=== PATIENT | female | born 1950 | race Caucasian/White ===

== ENCOUNTER 2017-08-24 11:05 | Observation (INO) | payer MEDICARE, OTHER, SELFPAY ==
[2017-08-24] VITALS (10 sets, daily range): BP systolic 120–173; BP diastolic 50–98; PULSE 61–86; RESP 14–18; TEMP 36.6–36.7; O2SAT 95–98; BMI 38.0; BMI 39.2
--- NOTE | 2017-08-24 11:26 | EKG12_ITS ---
Test Reason : CP Blood Pressure : / mmHG Vent. Rate : 062 BPM Atrial Rate : 062 BPM P-R Int : 164 ms QRS Dur : 088 ms QT Int : 436 ms P-R-T Axes : 033 001 007 degrees QTc Int : 442 ms Normal sinus rhythm Inferior [place], age undetermined, cannot be excluded Confirmed by STEFANIA PUTNAM, BRIELLE ([id number]), supervising editor news reel CARMINE GROSS ([id number]) on 08/26/2017 9:05:50 AM Referred By: VIRGEN Confirmed By:BRIELLE AGUIAR MD
--- NOTE | 2017-08-24 11:30 | RAD_ITS ---
STUDY: X-RAY CHEST REASON FOR EXAM: Female, 66 years old. Chest pressure and shortness of breath TECHNIQUE: PA and lateral views of the chest. COMPARISON: None. FINDINGS: EKG leads overlie the chest There are interstitial fibrotic changes of the lungs. There is no demonstrated pleural abnormality. Normal size heart. Normal mediastinum and robert. Normal visualized pulmonary arteries. There is atherosclerotic calcification of the aortic arch with tortuosity. There are diffuse degenerative changes of the visualized thoracic spine. Normal visualized ribs, clavicles, and shoulders. There is no demonstrated abnormality of the visualized soft tissue structures of the upper abdomen. RAD/Chest PA and Lateral IMPRESSION: Degenerative changes, as described above. No demonstrated acute cardiopulmonary process. Electronically Signed: Hill Hidalgo MD at 11:40 EDT , Service support ,
[2017-08-24] MEDS: Aspirin 81 MG TAB.CHEW 324 MG PO (11:35)
[2017-08-24 11:40] LABS: Absolute Lymphocyte Count 1.14 X10^3/ul (0.83-4.51); Absolute Neutrophil Count 3.8 X10^3/uL (2.0-7.7); Basophil# 0.02 X10^3/uL; Basophil% 0.4 % (0-1); Eosinophil# 0.09 X10^3/uL; Eosinophils% 1.7 % (0-5); Hematocrit 39.8 % (37-47); Hemoglobin 12.7 g/dl (12.0-15.0); Lymphocyte # 1.14 X10^3/ul (4.0); Lymphocyte % 21.5 % (19-41); Mean Corp Hgb Conc 31.9 g/gl (32-36); Mean Corpuscular Hgb 29.3 pg (27.0-32.0); Mean Corpuscular Volume 91.7 fL (81-99); Mean Platelet Vol. 10.4 fl (6.2-12.0); Monocyte# 0.22 X10^3/uL; Monocyte% 4.1 % (0-10); Neutrophil # 3.83 X10^3/uL (2.7-7.7); Neutrophil % 72.1 % (47-70); POSITIVE COUNT NO; POSITIVE DIFFERENTIAL NO; POSITIVE MORPHOLOGY NO; Platelet Count 237 K/mm3 (150-450); RBC Distribution Width CV 15.7 % (11.6-14.6); Red Blood Count 4.34 M/mm3 (4.2-5.4); White Blood Count 5.3 K/mm3 (4.4-11.0)
[2017-08-24 11:51] LABS: Anion Gap 5 (5-15); BUN 14 mg/dL (7-18); BUN/Creat Ratio 17.7 RATIO (10-20); Calcium,Total 8.9 mg/dL (8.5-10.1); Chloride 104 mmol/L (98-107); Creatinine, Serum 0.79 mg/dL (0.55-1.02); EST Glomerular Filtration Rate 77 mL/min (>60); Est Glom Filt Rate - Afr Amer 93 mL/min (>60); Estimated Creatinine Clearance 71.62 ml/min; Glucose 103 mg/dL (74-106); Potassium 3.9 mmol/L (3.5-5.1); Sodium Level 138 mmol/L (136-145)
--- NOTE | 2017-08-24 12:04 | ED.VISSUMM ---
- ER Visit Summary Date of Service: 08/24/17 Chief Complaint: Shortness of breath History of Present Illness: The patient is a 66 F who presents with shortness of breath. This is been present for the past 4 days. It is worsened with exertion. She reports chronic cough was unchanged. She has a history of COPD but no change in cough or sputum. The planes of some mild head congestion but really no other recent illness. She also complains of some chest pressure and heaviness. This can last anywhere between 10 and 60 minutes. There is a family history of coronary artery disease and sibling had an [place] in his 40s. Physical Examination: Blood pressure 172/98 vitals otherwise normal Moist mucous membranes Heart regular rate and rhythm Lungs are clear no rales rhonchi or wheezing no increased work of breathing Abdomen soft and nontender 2+ radial pulses Extremities nontender Alert Test Results: EKG shows normal sinus rhythm at a rate of 62. CBC BMP troponin all normal. Chest x-ray normal. Emergency Department Course and Treatment: She was given aspirin. Her physical exam and history are suggestive of possible cardiac ischemia or angina. She does not have change in cough or sputum or increased wheezing in her lungs were completely clear. She does report dyspnea on exertion. Her GAMALIEL risk score is 2 and her heart score is 5. Do feel she will need repeat cardiac enzymes and stress testing. Patient discussed with the hospitalist and admitted. Treatment Plan: [] Disposition: Admit Impression: Chest pain Dyspnea on exertion This note was generated with [employer] dictation software. It may contain incorrect words, spelling, and punctuation that were not noted in review of the chart prior to signing ED Disposition - Plan for ED Patient: Chief Complaint: Shortness of Breath Referrals: Madeline Rogers MD [Primary Care Provider] -
--- NOTE | 2017-08-24 12:08 | ED.DCSUM_ITS ---
- ER Visit Summary Date of Service: 08/24/17 Chief Complaint: Shortness of breath History of Present Illness: The patient is a 66 F who presents with shortness of breath. This is been present for the past 4 days. It is worsened with exertion. She reports chronic cough was unchanged. She has a history of COPD but no change in cough or sputum. The planes of some mild head congestion but really no other recent illness. She also complains of some chest pressure and heaviness. This can last anywhere between 10 and 60 minutes. There is a family history of coronary artery disease and sibling had an [place] in his 40s. Physical Examination: Blood pressure 172/98 vitals otherwise normal Moist mucous membranes Heart regular rate and rhythm Lungs are clear no rales rhonchi or wheezing no increased work of breathing Abdomen soft and nontender 2+ radial pulses Extremities nontender Alert Test Results: EKG shows normal sinus rhythm at a rate of 62. CBC BMP troponin all normal. Chest x-ray normal. Emergency Department Course and Treatment: She was given aspirin. Her physical exam and history are suggestive of possible cardiac ischemia or angina. She does not have change in cough or sputum or increased wheezing in her lungs were completely clear. She does report dyspnea on exertion. Her GAMALIEL risk score is 2 and her heart score is 5. Do feel she will need repeat cardiac enzymes and stress testing. Patient discussed with the hospitalist and admitted. Treatment Plan: [] Disposition: Admit Impression: Chest pain Dyspnea on exertion This note was generated with [employer] dictation software. It may contain incorrect words, spelling, and punctuation that were not noted in review of the chart prior to signing ED Disposition - Plan for ED Patient: Chief Complaint: Shortness of Breath Referrals: Madeline Rogers MD [Primary Care Provider] -
--- NOTE | 2017-08-24 15:22 | PCM.HP.STD ---
Problem List (1) Chest pain Status: Acute (2) COPD (chronic obstructive pulmonary disease) Status: Chronic (3) HTN (hypertension) Status: Chronic (4) Hyperlipidemia Status: Chronic History of Present Illness Date of Admission: 08/24/17 Chief Complaint: chest pain. WHITE. The patient is a 66 year old F presents with chest pain and WHITE. Has been ongoing for sometime. Improved when rests. Never had this before. Presented to ED for evaluation. Work up in ED was negative. no other constitutional symptoms with this.[] Past Medical History Past Medical History (Chronic Problems): Chronic Problems COPD (chronic obstructive pulmonary disease) (Chronic) HTN (hypertension) (Chronic) Hyperlipidemia (Chronic) Allergies No Known Allergies Allergy (Verified 02/09/17 22:14) Home Medications: Ambulatory Orders Medication Instructions Recorded Lisinopril [Zestril] 20 mg PO DAILY 08/24/17 Omeprazole [Prilosec] 20 mg PO DAILY 08/24/17 Pravastatin Sodium [Pravachol] 10 mg PO DAILY 08/24/17 busPIRone [Buspar] 5 mg PO BID 08/24/17 Psychiatric History: No pertinent psych hx Lives: With Family Smoking Status: Never smoker Tobacco Use: Non-smoker Alcohol: None Drugs: None - *Family History Sibling History Items: Heart Disease Review of Systems Constitutional: Denies: Chills, Fever, Weight Change Eyes: Denies: Blurred vision, Double vision HEENT: Denies: Head Aches, Sinus Congestion, Sinus Drainage Cardiovascular: Reports: Chest Pain. Denies: Edema Respiratory: Reports: Shortness of breath upon exertion. Denies: Cough Gastrointestinal: Denies: Abdominal Pain, Nausea, Vomiting Genitourinary: Denies: Dysuria Musculoskeletal: Denies: Joint Pain, Joint Tenderness Skin: Denies: Rash, Wounds Neurological: Denies: Numbness, Tingling, Focal weakness Psychiatric: Denies: Anxiety, Depression Endocrine: Reports: Change in Body Habitus Hematologic/ Lymphatic: Denies: Easy Bruising, Easy Bleeding, Hx of blood clot VTE Information - Inpt Only VTE Present on Admission: No VTE Pharm Prophylaxis ordered?: Yes Patient Problems: Active and Suspected Problems Chest pain (Acute) - Physical Exam General: Alert, Cooperative, No apparent distress HEENT: Atraumatic, Normocephalic Neck: No Nodes, Thyroid Normal Size and Texture Lungs: Clear to auscultation, Normal air movement, No rhonchi, No wheeze Cardiovascular: Regular rate, Regular Rhythm, Normal S1, Normal S2, No murmurs Abdomen: Bowel Sounds Present, Soft, Non Tender Extremities: No edema, No Calf Tenderness Skin: No rashes, No breakdown Psych/Mental Status: Normal Affect, Appropriate Vital Signs Temp Pulse Resp BP Pulse Ox 36.7 C 61 15 156/75 H 98 08/24/17 11:05 08/24/17 12:43 08/24/17 11:36 08/24/17 11:36 08/24/17 11:36 Weight: 116.845 kg Body Mass Index (BMI) 39.2 Laboratory Tests Past 24 Hrs 08/24/17 14:20 Troponin I < 0.02 Assessment/Plan Active and Suspected Problems Chest pain (Acute) 1. Chest pain concern for cardiac etiology Heart score 4. GAMALIEL 2 ASA chemical nuclear stress in AM 2. DVT proph LMWH Code Visit OBSV E&M: 04437 Initial observation care L2
--- NOTE | 2017-08-24 15:30 | HP.PCM_ITS ---
Problem List (1) Chest pain Status: Acute (2) COPD (chronic obstructive pulmonary disease) Status: Chronic (3) HTN (hypertension) Status: Chronic (4) Hyperlipidemia Status: Chronic History of Present Illness Date of Admission: 08/24/17 Chief Complaint: chest pain. WHITE. The patient is a 66 year old F presents with chest pain and WHITE. Has been ongoing for sometime. Improved when rests. Never had this before. Presented to ED for evaluation. Work up in ED was negative. no other constitutional symptoms with this.[] Past Medical History Past Medical History (Chronic Problems): Chronic Problems COPD (chronic obstructive pulmonary disease) (Chronic) HTN (hypertension) (Chronic) Hyperlipidemia (Chronic) Allergies No Known Allergies Allergy (Verified 02/09/17 22:14) Home Medications: Ambulatory Orders Medication Instructions Recorded Lisinopril [Zestril] 20 mg PO DAILY 08/24/17 Omeprazole [Prilosec] 20 mg PO DAILY 08/24/17 Pravastatin Sodium [Pravachol] 10 mg PO DAILY 08/24/17 busPIRone [Buspar] 5 mg PO BID 08/24/17 Psychiatric History: No pertinent psych hx Lives: With Family Smoking Status: Never smoker Tobacco Use: Non-smoker Alcohol: None Drugs: None - *Family History Sibling History Items: Heart Disease Review of Systems Constitutional: Denies: Chills, Fever, Weight Change Eyes: Denies: Blurred vision, Double vision HEENT: Denies: Head Aches, Sinus Congestion, Sinus Drainage Cardiovascular: Reports: Chest Pain. Denies: Edema Respiratory: Reports: Shortness of breath upon exertion. Denies: Cough Gastrointestinal: Denies: Abdominal Pain, Nausea, Vomiting Genitourinary: Denies: Dysuria Musculoskeletal: Denies: Joint Pain, Joint Tenderness Skin: Denies: Rash, Wounds Neurological: Denies: Numbness, Tingling, Focal weakness Psychiatric: Denies: Anxiety, Depression Endocrine: Reports: Change in Body Habitus Hematologic/ Lymphatic: Denies: Easy Bruising, Easy Bleeding, Hx of blood clot VTE Information - Inpt Only VTE Present on Admission: No VTE Pharm Prophylaxis ordered?: Yes Patient Problems: Active and Suspected Problems Chest pain (Acute) - Physical Exam General: Alert, Cooperative, No apparent distress HEENT: Atraumatic, Normocephalic Neck: No Nodes, Thyroid Normal Size and Texture Lungs: Clear to auscultation, Normal air movement, No rhonchi, No wheeze Cardiovascular: Regular rate, Regular Rhythm, Normal S1, Normal S2, No murmurs Abdomen: Bowel Sounds Present, Soft, Non Tender Extremities: No edema, No Calf Tenderness Skin: No rashes, No breakdown Psych/Mental Status: Normal Affect, Appropriate Vital Signs Temp Pulse Resp BP Pulse Ox 36.7 C 61 15 156/75 H 98 08/24/17 11:05 08/24/17 12:43 08/24/17 11:36 08/24/17 11:36 08/24/17 11:36 Weight: 116.845 kg Body Mass Index (BMI) 39.2 Laboratory Tests Past 24 Hrs 08/24/17 14:20 Troponin I < 0.02 Assessment/Plan Active and Suspected Problems Chest pain (Acute) 1. Chest pain * concern for cardiac etiology * Heart score 4. GAMALIEL 2 * ASA * chemical nuclear stress in AM 2. DVT proph * LMWH Code Visit OBSV E&M: 64254 Initial observation care L2
[2017-08-24] MEDS: busPIRone 5 MG Tablet PO (21:13)
[2017-08-24] MEDS: Pravastatin 20 MG Tablet 10 MG PO (21:13)
[2017-08-24] MEDS: 0.9% NaCl Peripheral Flush Adult/Peds IV (21:14)
[2017-08-25 02:14] VITALS: BP 141/62; PULSE 58; RESP 17; TEMP 36.4; O2SAT 98
[2017-08-25 03:11] VITALS: PULSE 60
[2017-08-25 05:15] LABS: Absolute Lymphocyte Count 2.14 X10^3/ul (0.83-4.51); Absolute Neutrophil Count 3.3 X10^3/uL (2.0-7.7); Basophil# 0.02 X10^3/uL; Basophil% 0.3 % (0-1); Eosinophil# 0.21 X10^3/uL; Eosinophils% 3.5 % (0-5); Hemoglobin 12.4 g/dl (12.0-15.0); Lymphocyte # 2.14 X10^3/ul (4.0); Lymphocyte % 35.4 % (19-41); Mean Corp Hgb Conc 31.8 g/gl (32-36); Mean Corpuscular Hgb 29.1 pg (27.0-32.0); Mean Corpuscular Volume 91.5 fL (81-99); Monocyte# 0.41 X10^3/uL; Monocyte% 6.8 % (0-10); Neutrophil # 3.26 X10^3/uL (2.7-7.7); Neutrophil % 53.8 % (47-70); Platelet Count 235 K/mm3 (150-450); RBC Distribution Width SD 52.4 fl (35.1-43.9); Red Blood Count 4.26 M/mm3 (4.2-5.4); White Blood Count 6.1 K/mm3 (4.4-11.0)
[2017-08-25] MEDS: Aspirin E.C. 81 MG Tablet PO (05:16)
[2017-08-25] MEDS: Lisinopril 20 MG Tablet PO (05:16)
[2017-08-25] MEDS: 0.9% NaCl Peripheral Flush Adult/Peds IV (05:16)
[2017-08-25 05:17] VITALS: BP 159/74; PULSE 64; RESP 16; TEMP 36.8; O2SAT 98
[2017-08-25 05:20] LABS: POSITIVE COUNT NO; POSITIVE DIFFERENTIAL NO; POSITIVE MORPHOLOGY NO
[2017-08-25 05:23] LABS: Anion Gap 5 (5-15); BUN 15 mg/dL (7-18); BUN/Creat Ratio 19.3 RATIO (10-20); Calcium,Total 8.6 mg/dL (8.5-10.1); Chloride 107 mmol/L (98-107); Creatinine, Serum 0.78 mg/dL (0.55-1.02); EST Glomerular Filtration Rate 79 mL/min (>60); Est Glom Filt Rate - Afr Amer 96 mL/min (>60); Estimated Creatinine Clearance 72.54 ml/min; Glucose 89 mg/dL (74-106); Potassium 4.3 mmol/L (3.5-5.1); Prothrombin Time (Protime)PT. 13.4 SECONDS (11.7-14.9); Sodium Level 142 mmol/L (136-145)
--- NOTE | 2017-08-25 05:55 | EKG12_ITS ---
Test Reason : AM EKG Blood Pressure : / mmHG Vent. Rate : 065 BPM Atrial Rate : 065 BPM P-R Int : 164 ms QRS Dur : 078 ms QT Int : 442 ms P-R-T Axes : 049 -03 -01 degrees QTc Int : 459 ms Normal sinus rhythm Normal ECG Confirmed by DUYEN PUTNAM, ERIKA ([id number]), editorial assistant CARMINE GROSS ([id number]) on 08/28/2017 3:05:54 PM Referred By: BAN Confirmed By:ERIKA GELLER MD
[2017-08-25 07:35] VITALS: PULSE 68
--- NOTE | 2017-08-25 09:07 | PN_ITS ---
Patient Problems: Active and Suspected Problems Chest pain (Acute) Subjective: No further chest pain, nor shortness of breath. Vitals/I&O's: Vital Signs Temp Pulse Resp BP Pulse Ox 36.8 C 68 16 159/74 H 98 08/25/17 05:17 08/25/17 07:35 08/25/17 05:17 08/25/17 05:17 08/25/17 05:17 Oxygen Delivery Method Room Air Weight: 116.845 kg Body Mass Index (BMI) 39.2 Intake and Output for Last 24 Hours 08/23/17 08/24/17 08/25/17 23:59 23:59 23:59 Intake Total 475 / 475 60 / 60 Balance 475 / 475 60 / 60 General: Alert, No apparent distress HEENT: Atraumatic, Normocephalic Neck: No Nodes, Thyroid Normal Size and Texture Lungs: Clear to auscultation, Normal air movement, No rhonchi, No wheeze Cardiovascular: Regular rate, Regular Rhythm, Normal S1, Normal S2, No murmurs Abdomen: Bowel Sounds Present, Soft, Non Tender, Non-Distended, No Hepato- splenomegaly Extremities: No edema, No Calf Tenderness Psych/Mental Status: Normal Affect, Appropriate Laboratory Results 08/24/17 14:20: Troponin I < 0.02 08/24/17 17:30: Troponin I < 0.02 08/25/17 04:25: Triglycerides Pending, Cholesterol Pending, LDL Cholesterol Pending, VLDL Cholesterol Pending, HDL Cholesterol Pending 08/25/17 04:25: WBC 6.1, RBC 4.26, Hgb 12.4, Hct 39.0, MCV 91.5, MCH 29.1, MCHC 31.8 L, RDW 16.0 H, RDW Differential 52.4 H, Plt Count 235, MPV 11.0, Immature Gran % (Auto) 0.200, Neut % (Auto) 53.8, Lymph % (Auto) 35.4, [place] % (Auto) 6.8 , Eos % (Auto) 3.5, Baso % (Auto) 0.3, Absolute Neuts (auto) 3.3, Absolute Lymphs (auto) 2.14, Total Counted Not Reportable 08/25/17 04:25: PT 13.4, INR 1.0, APTT 25.0 08/25/17 04:25: Sodium 142, Potassium 4.3, Chloride 107, Carbon Dioxide 30.0, Anion Gap 5, BUN 15, Creatinine 0.78, Estim Creat Clear Calc 72.54, Est GFR ( MDRD) Af Amer 96, Est GFR (MDRD) Non-Af 79, BUN/Creatinine Ratio 19.3, Glucose 89, Calcium 8.6 Current Medications Aspirin (Ecotrin) 81 mg PO DAILY@0800 [facility] Last Admin: 08/25/17 05:16 Dose: 81 mg Buspirone HCl (Buspar) 5 mg PO BID [facility] Last Admin: 08/24/17 21:13 Dose: 5 mg Enoxaparin Sodium (Lovenox) 40 mg SC DAILY@1000 [facility] Sodium Chloride () 250 mls @ 15 mls/hr IV .[id number] PRN PRN Reason: SALINE FLUSH Lisinopril (Zestril) 20 mg PO DAILY [facility] Last Admin: 08/25/17 05:16 Dose: 20 mg Magnesium Hydroxide (Milk Of Magnesia) 30 ml PO DAILY PRN PRN Reason: Constipation Nitroglycerin (Nitrostat) 0.4 mg SUBLINGUAL Q5M PRN PRN Reason: CHEST PAIN Pantoprazole Sodium (Protonix) 20 mg PO DAILY [facility] Pravastatin Sodium (Pravachol) 10 mg PO 2200 [facility] Last Admin: 08/24/17 21:13 Dose: 10 mg Sodium Chloride () 5 - 30 ml IV UD PRN PRN Reason: SALINE FLUSH Last Admin: 08/25/17 05:16 Dose: 10 ml Medical Necessity - Tobacco Use Smoking Status: Never smoker Tobacco Use: Non-smoker Assessment/Plan Active and Suspected Problems Chest pain (Acute) 1. Chest pain * concern for cardiac etiology * Heart score 4. GAMALIEL 2 * ASA * chemical nuclear stress today 2. DVT proph * LMWH Code Visit OBSV E&M: 36248 Subsequent observation care L2
[2017-08-25 11:30] VITALS: BP 132/60; PULSE 83; RESP 16; TEMP 36.1; O2SAT 96
[2017-08-25] MEDS: Pantoprazole Sodium 20 MG Tablet PO (11:36)
[2017-08-25] MEDS: busPIRone 5 MG Tablet PO (11:36)
--- NOTE | 2017-08-25 11:38 | NURSING ---
[facility]SA late d/t pt being at stress test
[2017-08-25 11:43] VITALS: PULSE 79
--- NOTE | 2017-08-25 12:07 | STRESSREP_ITS ---
Stress Test Report Date: 08/25/2017 Procedure: Pharmacologic stress nuclear imaging study Indications: Chest pain Consent: Per the patient Procedure: The patient underwent pharmacologic (Regadenoson) evaluation with a peak heart rate of 117 beats per minute (75 predicted maximal heart rate) and a peak blood pressure of 180/90 mmHg. The baseline ECG demonstrated normal sinus rhythm. The peak pharmacologic ECG demonstrated no obvious ECG changes. There were no cardiac dysrhythmias pretest, during pharmacologic infusion, or recovery. There was no complaint of chest discomfort during pharmacologic infusion or recovery. The examination was discontinued secondary to completion of protocol. Impression: 1. Pharmacologic (Regadenoson) evaluation 2. Peak pharmacologic ECG with no obvious ECG changes. 3. No cardiac dysrhythmias pretest, during pharmacologic infusion, or recovery 4. Nuclear images pending Myocardial perfusion imaging study: Technique: The patient was injected with 14.2 millicuries of technetium 99m Cardiolite and subsequently rest SPECT Cardiolite nuclear imaging was obtained in the horizontal long, vertical long, and short axis views. The patient underwent pharmacologic (Regadenoson) evaluation with a peak heart rate of 117 beats per minute (75 % percent predicted maximal heart rate) and a peak blood pressure of 180/90 mmHg. The patient was injected with 44.8 millicuries of technetium 99m Cardiolite and subsequently stress SPECT Cardiolite nuclear imaging was obtained in the horizontal long, vertical long, and short axis views. A gated Cardiolite study at peak stress was obtained. Interpretation: Rest and stress SPECT Cardiolite nuclear imaging status post realignment, normalization, and attenuation correction demonstrate relative uniform tracer uptake and myocardial perfusion appearing within normal limits. There is end systolic thickening and brightening. The gated Cardiolite study demonstrates myocardial thickening and inward wall motion. The reported LVEF is 89%. Impression: 1. Rest and stress SPECT Cardiolite nuclear imaging demonstrate relative uniform tracer uptake and myocardial perfusion appearing within normal limits. 2. The gated Cardiolite study reports an LVEF of 89 %. This note was generated with [employer] software. It may contain incorrect words, spelling, and punctuation that were not noted in checking the note before signing.
[2017-08-25 12:09] LABS: Cholesterol 208 mg/dL (200); High Density Lipoprotein 70 mg/dL; Triglycerides 76 mg/dL; Very Low Density Lipoprotein 15 mg/dL (5-40)
--- NOTE | 2017-08-25 12:41 | PCM.DC ---
- Discharge Diagnoses Current Active Problems: Current Active and Chronic Problems Chest pain (Acute) COPD (chronic obstructive pulmonary disease) (Chronic) HTN (hypertension) (Chronic) Hyperlipidemia (Chronic) You will use the following diet at home:: No restrictions Your food should be the consistency of: Regular Your liquids should be the consistency of: Regular/Thin Discharge Activity: Return to Normal Activity Call your doctor if you observe: Fever of 101 or Higher, Shortness of breath, Chest pain Instructions: ED Chest Pain NonCardiac Allergies/Adverse Reactions: Allergies No Known Allergies Allergy (Verified 02/09/17 22:14) Medications to take at Discharge Lisinopril [Zestril] 20 mg PO DAILY 08/24/17 Omeprazole [Prilosec] 20 mg PO DAILY 08/24/17 Pravastatin Sodium [Pravachol] 10 mg PO DAILY 08/24/17 busPIRone [Buspar] 5 mg PO BID 08/24/17 Primary Care Physician: Madeline Rogers MD [Primary Care Provider] - Within 1 Week Proposed Discharge Date: 08/25/17
--- NOTE | 2017-08-25 12:43 | PCM.DC.SUM ---
Discharge Date and Diagnosis - Problem List Patient Problems: Active and Suspected Problems Chest pain (Acute) Date of Admission: 08/24/17 Date of Discharge: 08/25/17 - Primary Discharge Diagnosis Active and Suspected Problems Chest pain (Acute) - Secondary Discharge Diagnosis Chronic Problems COPD (chronic obstructive pulmonary disease) (Chronic) HTN (hypertension) (Chronic) Hyperlipidemia (Chronic) Hospital Course and Treatment Imaging Results: 08/25/17 05:55 Nuclear Stress Test - Chemical [NM] AM (NON MEDS) Clinical Impression(s) from Imaging Studies Chest X-Ray 08/24/17 11:30 IMPRESSION: Degenerative changes, as described above. No demonstrated acute cardiopulmonary process. Electronically Signed: Hill Hidalgo MD at 11:40 EDT , Service support , Operations: None, - - left perc nephrostolithotomy Procedures: Stress test Summary of Care Provided: The patient is a 66 year old F presents with chest pain. Patient had a heart score of 4 and a GAMALIEL score of 2. Patient underwent a nuclear stress test today that was unremarkable. Patient's cardiac workup has been unremarkable for her chest pain. Patient will be discharged home today. [] Discharge Diet: No Restrictions Discharge Activity: Return to Normal Activity Call your doctor if you observe: Fever of 101 or Higher, Shortness of breath, Chest pain Home Medications: Medications to take at Discharge Lisinopril [Zestril] 20 mg PO DAILY 08/24/17 Omeprazole [Prilosec] 20 mg PO DAILY 08/24/17 Pravastatin Sodium [Pravachol] 10 mg PO DAILY 08/24/17 busPIRone [Buspar] 5 mg PO BID 08/24/17 Primary Care Physician: Madeline Rogers MD [Primary Care Provider] - Within 1 Week Patient Instructions: ED Chest Pain NonCardiac Disposition: Home Minutes spent on discharge:: 26 Patient Condition:: Good Medical Necessity - Tobacco Use Smoking Status: Never smoker Tobacco Use: Non-smoker Meaningful Use Info Meaningful Use Diagnoses (Choose all that apply): None applicable Code Visit OBSV E&M: 45988 Observation care discharge
== END 2017-08-25 13:40 | disposition home or self-care (01) ==
LOC: ED 11:40 → ICU 12:37
PROVIDERS: Emergency Provider Emergency Medicine; Family Provider Internal Medicine; PCP Internal Medicine
DX: R07.89 Other chest pain (principal); J44.9 Chronic obstructive pulmonary disease, unspecified; I10 Essential (primary) hypertension; E78.5 Hyperlipidemia, unspecified; Z82.49 Family history of ischemic heart disease and other diseases of the circulatory system; R06.09 Other forms of dyspnea; Z79.899 Other long term (current) drug therapy
CPT/HCPCS: 71046; 78452; 80048; 80061; 84484; 85025; 85610; 85730; 93005; 93017; 99218; 99285; A9500; A4216; G0378; J2785

== ENCOUNTER → 2018-05-18 14:15 | Outpatient (CLI) | payer MEDICARE, OTHER, SELFPAY ==
--- NOTE | 2018-05-18 14:24 | RAD_ITS ---
STUDY: X-RAY - ABDOMEN/PELVIS REASON FOR EXAM: Female, 67 years old. Left-sided flank pain with history of kidney stones. TECHNIQUE: KUB COMPARISON: None. FINDINGS: Bowel pattern normal. Grossly normal size and position of the solid organs of the abdomen. There is no visible calculus overlying the renal silhouettes or along the course of the ureters or within the urinary bladder. Small pelvic phlebolith are present. Mild lumbar scoliosis with prominent degenerative disc disease and facet arthropathy/hypertrophy at L4-L5. Mild hip joint degenerative changes bilaterally. RAD/Abdomen Single View IMPRESSION: No evidence of urinary calculus. Lumbar scoliosis and low lumbar spondylosis. Electronically Signed: Abel Bills MD at 18:10 EST Tel , Service support ,
--- OUTSIDE RECORDS SUMMARY | 2018-07-20 19:49 | XMS RPT_ITS ---
:1950 Author Organization OH[facility] Care Team Providers Name Role Phone ROCIO BARR (AVIONICS SYSTEMS TECHNICIAN) Attending Unavailable MAGNUS FLORES Attending Unavailable ROCIO BARR (AVIONICS SYSTEMS TECHNICIAN) Referring Unavailable CLAUDIA WOLFF (RADIOLOGY ASST) Attending Unavailable MAGNUS FLORES Attending Unavailable ROCIO BARR (AVIONICS SYSTEMS TECHNICIAN) Referring Unavailable CLAUDIA WOLFF (RADIOLOGY ASST) Referring Unavailable GANTA, MARYAM Attending Unavailable GANTA, MARYAM Referring Unavailable GANTA, MARYAM Attending Unavailable GANTA, MARYAM Referring Unavailable GANTA, MARYAM Referring Unavailable ToddJohn Attending Unavailable Todd, John Edwards Referring Unavailable Ganta, Maryam Primary Care Unavailable Ganta, Maryam Primary Care Unavailable Jopperi, Jose Admitting Unavailable Jopperi, Jose Attending Unavailable Jopperi, Jose Admitting Unavailable Jopperi, Jose Attending Unavailable Ganta, Maryam Primary Care Unavailable Jopperi, Jose Consulting Unavailable Jopperi, Jose Admitting Unavailable Jopperi, Jose Attending Unavailable Ganta, Maryam Primary Care Unavailable Jopperi, Jsoe Consulting Unavailable [place], Tejas Attending Unavailable Jose Huntley Referring Unavailable Junior, Brooks Attending Unavailable Jose Huntley Referring Unavailable PROBLEMS PROBLEMS DATE TYPE CONDITION / CODE ATTENDING STATUS SOURCE 01/27/2018 Active Age-related NA Active [facility] osteoporosis [place] without current Repository pathological fracture / M81.0(ICD-10) 11/02/2017 Active Encounter for NA Active [facility] screening [place] mammogram for Repository malignant neoplasm of breast / Z12.31(ICD-10) 09/09/2017 Active Shortness of NA Active [facility] breath / [place] R06.02(ICD-10) Repository 09/09/2017 Active Unspecified NA Active [facility] chronic bronchitis [place] / J42(ICD-10) Repository 10/10/2017 Unknown R06.02 - Shortness Junior, [place] Active [place] [facility] breath / Community R06.02(ICD-10) Hospital Repository 10/10/2017 Unknown R07.89 - Other Junior, Brooks Active [place] chest pain / Community R07.89(ICD-10) Hospital Repository 10/10/2017 Unknown I10 - Essential Junior, Brooks Active [place] (primary) Community hypertension / Hospital I10(ICD-10) Repository 09/24/2017 Unknown R07.9 - Chest Moodispatomasz Tejas Active [place] pain, unspecified Community / R07.9(ICD-10) Hospital Repository 06/25/2017 Active Unknown / NA Active [facility] UNK(Unknown) [place] Repository PROCEDURES PROCEDURES No Procedure Records FoundRESULTS RESULTS ABDOMEN SINGLE VIEW Observed: 05/18/2018 Status: F Source: [place] 2:22 PM [facility] REPOSITORY [facility] Imaging Services [address] [place] [address] Abdomen Single View MR#: [id number] Acct: [id number] Name: NICHOLE HERRERA Ronak Rep #: [id number] : 1950 F 67 From: Abel Bills MD PCP: Maryam Arevalo MD Status: REG CLI Study: Abdomen Single View Date of Exam: 05/18/18 Exam# [id number] Ordering Dr: John Brooks MD STUDY: X-RAY - ABDOMEN/PELVIS REASON FOR EXAM: Female, 67 years old. Left-sided flank pain with history of kidney stones. TECHNIQUE: KUB COMPARISON: None. FINDINGS: Bowel pattern normal. Grossly normal size and position of the solid organs of the abdomen. There is no visible calculus overlying the renal silhouettes or along the course of the ureters or within the urinary bladder. Small pelvic phlebolith are present. Mild lumbar scoliosis with prominent degenerative disc disease and facet arthropathy/hypertrophy at L4-L5. Mild hip joint degenerative changes bilaterally. RAD/Abdomen Single View IMPRESSION: No evidence of urinary calculus. Lumbar scoliosis and low lumbar spondylosis. Electronically Signed: Abel Bills MD at 18:10 EST Tel , Service support , CC: Maryam Arevalo MD; John Brooks MD Notching Press Operator: Signed PROGRESS Observed: 03/23/2018 Status: COMPLETED Source: [place] 3:03 PM [facility] [place] REPOSITORY O ID: [id number] Author: Lina Kamara (Hakeem) Dax Service: (none) Author Type: Nurse Practitioner Type: Progress Notes Filed: 03/23/2018 3:07 PM Note Text: Subjective HPI Patient presents with: Left Hip Pain: x couple days, no injury States hx of similar pain that usually resolves on it own States 10/10 on pain scale, sharp, intermittently Denies any otc treatment for symptoms. Denies chest pain, sob, abd pain, dysuria, n/v, numbness/tingling, incontinence of bowel or bladder Review of Systems Constitutional: Negative for chills and fever. Cardiovascular: Negative for chest pain. Gastrointestinal: Negative for abdominal pain, nausea and vomiting. Genitourinary: Negative for dysuria and flank pain. Denies incontinence of bowel or bladder function Musculoskeletal: Positive for back pain. All other systems reviewed and are negative. 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 Has a son who had bladder cancer, was treated and is doing fine right now. 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/2009 - NEVUS BACK///BENIGN ANGELIQUE SKIN TRUNK 01/24/2008 - Obesity, unspecified - Other chronic dermatitis due to solar radiation 01/24/2008 - Other seborrheic keratosis 01/24/2008 - Panic disorder without agoraphobia - Personal history of malignant melanoma of skin 10/26/2005 - Reflux esophagitis - Scar condition and fibrosis of skin 01/24/2008 - SOLAR LENGINES///DYSCHROMIA OTHER 01/24/2008 PAST SURGICAL HISTORY Procedure Laterality Date - COLONOSCOP W/ OR W/O BRSH SPEC 11/17/2013 Colonoscopy - CRANIOTOMY TEMPORL LOBECTOMY 03/07/2015 acoustic neuroma removal - CT BRAIN WITHOUT CONTRAST 03/07/2015 normal - PAST SURGICAL HISTORY OF 06/02 catarract /rt. eye - PAST SURGICAL HISTORY OF 1999 catraract /lt. eye - PAST SURGICAL HISTORY OF 06/2007 remove tumor=acoustic neuroma - REMOVAL GALLBLADDER 1987 Cholecystectomy (open) ALLERGIES Environmental [Other] MEDICATIONS losartan (COZAAR) 25 mg tablet Take 1 tablet by mouth once daily. busPIRone (BUSPAR) 5 mg tablet Take 1 tablet by mouth three times daily. omeprazole (PRILOSEC) 20 mg capsule Take 1 capsule by mouth once daily. Melatonin 5 mg cap Take by mouth. albuterol HFA (PROAIR HFA) 90 mcg/actuation inhaler Inhale 2 Puffs as instructed every 4 hours as needed for Wheezing/Shortness of Breath. pravastatin (PRAVACHOL) 10 mg tablet TAKE ONE TABLET BY MOUTH ONCE DAILY clotrimazole (LOTRIMIN, CLOTRIM) 1 % cream Apply 1 application to affected area twice daily. Under the breast area loratadine (CLARITIN) 10 mg tablet Take 1 tablet by mouth once daily. Aspirin 81 mg Tab Take 1 tablet by mouth once daily. Take with food. FOLIC ACID 800 MCG TAB Take one(1) tablet daily. calcium citrate/vitamin d3(CITRACAL + D 315 MG-200 UNIT TAB) take one daily THERAPEUTIC MULTIVITAMIN TAB Take one(1) tablet daily. cyclobenzaprine (FLEXERIL) 10 mg tablet Take 1 tablet by mouth three times daily as needed for up to 7 days. ibuprofen (MOTRIN) 800 mg tablet Take 1 tablet by mouth every 8 hours as needed for up to 7 days. FAMILY HISTORY Problem Relation Age of Onset - other (HEART DISEASE [Other]) Father - other (KIDNEY STONES [Other]) Mother - other (BLADDER CANCER [Other]) Son - Diabetes Mother age 70's - Heart Father - Heart Brother - Heart Paternal Grandfather - other (high cholesterol [Other]) Mother - Seizures Sister - Headache Son migraines - Diabetes Brother starting age 50's - Colon Cancer Other none Social History Substance Use Topics - Smoking status: Never Smoker - Smokeless tobacco: Never Used - Alcohol use No Objective Physical Exam Constitutional: She is well-developed, well-nourished, and in no distress. HENT: Head: Normocephalic. Eyes: Conjunctivae are normal. Neck: Normal range of motion. Cardiovascular: Normal rate, regular rhythm and normal heart sounds. Pulmonary/Chest: Effort normal and breath sounds normal. Abdominal: Soft. She exhibits no distension. There is no tenderness. Musculoskeletal: Back: straight and symmetric, no pinpoint spinal tenderness, left paraspinal tenderness, no CVA tenderness, Full ROM, Low extrem. reflexes are 2+ and symmetric,and motor strength and sensory exam are normal, positive left SLR Nursing note and vitals reviewed. ASSESSMENT/PLAN: 1. Left sided sciatica - ICD9: 724.3, ICD10: M54.32 Sciatica - Ice for localized tenderness - Prednisone burst- see orders - Muscle relaxant- see orders - F/u with pcp in 3-5 days or sooner if symptoms are not improving or worsening Prescription instructions reviewed with patient as applicable. Patient advised if symptoms do not improve or if symptoms worsen sooner, to contact their primary care physician. Potential red flag symptoms discussed with the patient. Reviewed appropriate action plan to take if red flag symptoms occur. Patient agreeable to treatment plan. Lina Palomino APRN.RADIOLOGY ASST CNOV Observed: 03/23/2018 Status: COMPLETED Source: [place] 1:45 PM [facility] REPOSITORY Office Visit (UCWSTR) NICHOLE HERRERA ([id number]) 1950 F Date Time Provider Department 03/23/18 1:45 PM LINA PALOMINO (HAKEEM) [facility] During your visit today, we recorded the following information about you: Temperature Pulse Respiration Blood pressure 98.8 degrees 74/minute 18/minute 122/80 Weight 120.7 kg Lina Palomino APRN.RADIOLOGY ASST 03/23/2018 1:54 PM Signed [facility] [address] [place] [address] Emergency Department Diagnosis: Assessment SCIATICA: Your exam shows you have sciatica, a condition most often seen in patients with disc disease of the lower back. Sciatica causes pain to radiate from the lower back or buttock area down the leg. It results from pressure on nerve roots coming out of the spine when a disc deteriorates and pushes to one side. Often there is a history of back problems. In most cases sciatica improves greatly with conservative treatment. Most patients with it are completely better after 2-4 weeks of bed rest and other supportive care. Bed rest reduces the disc pressure greatly; sitting is the worst position since the pressure on the disc is over 5 times greater than it is while lying down. You should avoid bending, lifting, and all other activities which make the problem worse. After the pain improves, you may continue with normal activity, taking brief periods for bed rest throughout the day until you are back to normal. Aspirin, ibuprofen, or other anti-inflammatory drugs are often used to help control pain. Muscle relaxants may help by relieving spasm and providing mild sedation. Cold or heat therapy and massage may also give significant relief. Spinal manipulation is not recommended because it can increase the degree of disc protrusion. Surgery is reserved for patients that do not improve with conservative treatment, or who have signs of severe nerve root pressure. You should see your doctor for follow up care as recommended. A program for back injury rehabilitation with stretching and strengthening exercises is an important part of management. Please call your doctor, a back specialist, or the emergency room right away if you notice increased pain, weakness, or numbness in your legs, or if you have any difficulty with bladder or bowel control. Lina Palomino APRN.CALVIN 03/23/2018 3:07 PM Signed Subjective HPI Patient presents with: Left Hip Pain: x couple days, no injury States hx of similar pain that usually resolves on it own States 10/10 on pain scale, sharp, intermittently Denies any otc treatment for symptoms. Denies chest pain, sob, abd pain, dysuria, n/v, numbness/tingling, incontinence of bowel or bladder Review of Systems Constitutional: Negative for chills and fever. Cardiovascular: Negative for chest pain. Gastrointestinal: Negative for abdominal pain, nausea and vomiting. Genitourinary: Negative for dysuria and flank pain. Denies incontinence of bowel or bladder function Musculoskeletal: Positive for back pain. All other systems reviewed and are negative. 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 Has a son who had bladder cancer, was treated and is doing fine right now. 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/2009 - NEVUS BACK///BENIGN ANGELIQUE SKIN TRUNK 01/24/2008 - Obesity, unspecified - Other chronic dermatitis due to solar radiation 01/24/2008 - Other seborrheic keratosis 01/24/2008 - Panic disorder without agoraphobia - Personal history of malignant melanoma of skin 10/26/2005 - Reflux esophagitis - Scar condition and fibrosis of skin 01/24/2008 - SOLAR LENGINES///DYSCHROMIA OTHER 01/24/2008 PAST SURGICAL HISTORY Procedure Laterality Date - COLONOSCOP W/ OR W/O BRSH SPEC 11/17/2013 Colonoscopy - CRANIOTOMY TEMPORL LOBECTOMY 03/07/2015 acoustic neuroma removal - CT BRAIN WITHOUT CONTRAST 03/07/2015 normal - PAST SURGICAL HISTORY OF 06/02 catarract /rt. eye - PAST SURGICAL HISTORY OF 1999 catraract /lt. eye - PAST SURGICAL HISTORY OF 06/2007 remove tumor=acoustic neuroma - REMOVAL GALLBLADDER 1987 Cholecystectomy (open) ALLERGIES Environmental [Other] MEDICATIONS losartan (COZAAR) 25 mg tablet Take 1 tablet by mouth once daily. busPIRone (BUSPAR) 5 mg tablet Take 1 tablet by mouth three times daily. omeprazole (PRILOSEC) 20 mg capsule Take 1 capsule by mouth once daily. Melatonin 5 mg cap Take by mouth. albuterol HFA (PROAIR HFA) 90 mcg/actuation inhaler Inhale 2 Puffs as instructed every 4 hours as needed for Wheezing/Shortness of Breath. pravastatin (PRAVACHOL) 10 mg tablet TAKE ONE TABLET BY MOUTH ONCE DAILY clotrimazole (LOTRIMIN, CLOTRIM) 1 % cream Apply 1 application to affected area twice daily. Under the breast area loratadine (CLARITIN) 10 mg tablet Take 1 tablet by mouth once daily. Aspirin 81 mg Tab Take 1 tablet by mouth once daily. Take with food. FOLIC ACID 800 MCG TAB Take one(1) tablet daily. calcium citrate/vitamin d3(CITRACAL + D 315 MG-200 UNIT TAB) take one daily THERAPEUTIC MULTIVITAMIN TAB Take one(1) tablet daily. cyclobenzaprine (FLEXERIL) 10 mg tablet Take 1 tablet by mouth three times daily as needed for up to 7 days. ibuprofen (MOTRIN) 800 mg tablet Take 1 tablet by mouth every 8 hours as needed for up to 7 days. FAMILY HISTORY Problem Relation Age of Onset - other (HEART DISEASE [Other]) Father - other (KIDNEY STONES [Other]) Mother - other (BLADDER CANCER [Other]) Son - Diabetes Mother age 70's - Heart Father - Heart Brother - Heart Paternal Grandfather - other (high cholesterol [Other]) Mother - Seizures Sister - Headache Son migraines - Diabetes Brother starting age 50's - Colon Cancer Other none Social History Substance Use Topics - Smoking status: Never Smoker - Smokeless tobacco: Never Used - Alcohol use No Objective Physical Exam Constitutional: She is well-developed, well-nourished, and in no distress. HENT: Head: Normocephalic. Eyes: Conjunctivae are normal. Neck: Normal range of motion. Cardiovascular: Normal rate, regular rhythm and normal heart sounds. Pulmonary/Chest: Effort normal and breath sounds normal. Abdominal: Soft. She exhibits no distension. There is no tenderness. Musculoskeletal: Back: straight and symmetric, no pinpoint spinal tenderness, left paraspinal tenderness, no CVA tenderness, Full ROM, Low extrem. reflexes are 2+ and symmetric,and motor strength and sensory exam are normal, positive left SLR Nursing note and vitals reviewed. ASSESSMENT/PLAN: 1. Left sided sciatica - ICD9: 724.3, ICD10: M54.32 Sciatica - Ice for localized tenderness - Prednisone burst- see orders - Muscle relaxant- see orders - F/u with pcp in 3-5 days or sooner if symptoms are not improving or worsening Prescription instructions reviewed with patient as applicable. Patient advised if symptoms do not improve or if symptoms worsen sooner, to contact their primary care physician. Potential red flag symptoms discussed with the patient. Reviewed appropriate action plan to take if red flag symptoms occur. Patient agreeable to treatment plan. Lina Palomino, LATOSHA.RADIOLOGY ASST Referring Provider: SELF [200] Allergies As of Date: 03/23/2018 Noted Allergy Reaction environmental [Other] 08/11/2005 Comments: stuffy nose, itchy eyes Date Reviewed: 03/23/2018 Reviewed by: Lina Kamara (Turntable Engineer) Dax - Fully Assessed Reason for Visit: Left Hip Pain [1557] Cmt: x couple days, no injury Primary Visit Diagnosis:Left sided sciatica [M54.32] Order(s):cyclobenzaprine (FLEXERIL) 10 mg tabletTake 1 tablet by mouth three times daily as needed for up to 7 days.Disp: 21 tabletRfl: 0 ibuprofen (MOTRIN) 800 mg tabletTake 1 tablet by mouth every 8 hours as needed for up to 7 days.Disp: 30 tabletRfl: 0 Prescriptions as of 03/23/2018 Sig: LOSARTAN 25 MG TABLET Take 1 tablet by mouth once d* BUSPIRONE 5 MG TABLET Take 1 tablet by mouth three * OMEPRAZOLE 20 MG CAPSULE,VERA* Take 1 capsule by mouth once * MELATONIN 5 MG CAPSULE Take by mouth. ALBUTEROL SULFATE HFA 90 MCG/* Inhale 2 Puffs as instructed * PRAVASTATIN 10 MG TABLET TAKE ONE TABLET BY MOUTH ONCE* CLOTRIMAZOLE 1 % TOPICAL CREAM Apply 1 application to affect* LORATADINE 10 MG TABLET Take 1 tablet by mouth once d* ASPIRIN 81 MG TABLET Take 1 tablet by mouth once d* FOLIC ACID 800 MCG TABLET Take one(1) tablet daily. CITRACAL PLUS D 315 MG-200 UN* take one daily THERAPEUTIC MULTIVITAMIN TABL* Take one(1) tablet daily. CYCLOBENZAPRINE 10 MG TABLET Take 1 tablet by mouth three * IBUPROFEN 800 MG TABLET Take 1 tablet by mouth every * Problem List As Of Date 03/23/2018 Noted Resolved GERD (gastroesophageal reflux disease) [K21.9] INVALID FOR* Priority: A More... Obesity, unspecified [E66.9] INVALID FOR* Priority: B More... Allergic Rhinitis, Cause Unspecified [J30.9] INVALID FOR* Priority: A Personal history of malignant melanoma of skin *INVALID FOR*12/03/2016 Essential hypertension, benign [I10] INVALID FOR* Priority: A More... 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 Routine gynecological examination [Z01.419] INVALID FOR*09/30/2011 Class: Chronic More... Hyperlipidemia, mixed [E78.2] INVALID FOR* Priority: A More... More... Mucous polyp of cervix [N84.1] INVALID FOR*04/19/2013 More... Panic attack [F41.0] INVALID FOR* More... Insomnia [G47.00] INVALID FOR* More... Vitamin D deficiency [E55.9] INVALID FOR* More... Acoustic neuroma (HCC) [D33.3] INVALID FOR* More... Anxiety neurosis [F41.1] INVALID FOR* More... Kidney stones [N20.0] INVALID FOR* More... Other instructions from your clinician: [facility] [address] [place], [place] [address] Emergency Department Diagnosis: Assessment SCIATICA: Your exam shows you have sciatica, a condition most often seen in patients with disc disease of the lower back. Sciatica causes pain to radiate from the lower back or buttock area down the leg. It results from pressure on nerve roots coming out of the spine when a disc deteriorates and pushes to one side. Often there is a history of back problems. In most cases sciatica improves greatly with conservative treatment. Most patients with it are completely better after 2-4 weeks of bed rest and other supportive care. Bed rest reduces the disc pressure greatly; sitting is the worst position since the pressure on the disc is over 5 times greater than it is while lying down. You should avoid bending, lifting, and all other activities which make the problem worse. After the pain improves, you may continue with normal activity, taking brief periods for bed rest throughout the day until you are back to normal. Aspirin, ibuprofen, or other anti-inflammatory drugs are often used to help control pain. Muscle relaxants may help by relieving spasm and providing mild sedation. Cold or heat therapy and massage may also give significant relief. Spinal manipulation is not recommended because it can increase the degree of disc protrusion. Surgery is reserved for patients that do not improve with conservative treatment, or who have signs of severe nerve root pressure. You should see your doctor for follow up care as recommended. A program for back injury rehabilitation with stretching and strengthening exercises is an important part of management. Please call your doctor, a back specialist, or the emergency room right away if you notice increased pain, weakness, or numbness in your legs, or if you have any difficulty with bladder or bowel control. Prescriptions ordered this encounter Disp Refills Start End CYCLOBENZAPRINE 10 MG TABLET 21 t* 0 03/23/2018 03/30/2018 Route: ORAL Sig: Take 1 tablet by mouth three times daily as needed for up to 7 days. IBUPROFEN 800 MG TABLET 30 t* 0 03/23/2018 03/30/2018 Route: ORAL Sig: Take 1 tablet by mouth every 8 hours as needed for up to 7 days. Disposition: Return if symptoms worsen or fail to improve. Follow-up and Disposition History Recorded Encounter Status:Closed by LINA PALOMINO on 03/23/18 BD DXA - AXIAL Observed: 01/27/2018 Status: F Source: [place] 10:23 AM [facility] [place] REPOSITORY * * *Final Report* * * DATE OF EXAM: Jan 27 2018 10:23AM WRB [id number] - BD DXA - AXIAL SKELETON B / PROCEDURE REASON: Age-related osteoporosis without current pathological fracture * * * * Physician Interpretation * * * * BONE DENSITY - 01/27/2018 10:23 AM HISTORY: INDICATIONS / RISK FACTORS / DEMOGRAPHICS: Age-related osteoporosis without current pathological fracture No prev. Postmenopausal, GERD, hypertensio, hyperlipidemia, Vit D deficiency, Hx of kedney stones. TECHNIQUE: Lumbar spine and both hips evaluated COMPARISON: None STUDY LIMITATIONS: None RESULT: LUMBAR SPINE: BMD = 0.898 g/cm2, which is -1.4 SDs (T-Score) for mean peak bone mass of young normals 0.5 SDs (Z-Score) for mean peak bone mass matched for age, sex, weight, ethnicity LEFT TOTAL HIP: BMD = 1.066 g/cm2, which is 1.0 SDs (T-Score) for mean peak bone mass of young normals 2.3 SDs (Z-Score) for mean peak bone mass matched for age, sex, weight, ethnicity LEFT FEMORAL NECK: BMD = 0.79 g/cm2, which is -0.5 SDs (T-Score) for mean peak bone mass of young normals 1.0 SDs (Z-Score) for mean peak bone mass matched for age, sex, weight, ethnicity RIGHT TOTAL HIP: BMD = 1.074 g/cm2, which is 1.1 SDs (T-Score) for mean peak bone mass of young normals 2.4 SDs (Z-Score) for mean peak bone mass matched for age, sex, weight, ethnicity RIGHT FEMORAL NECK: BMD = 0.87 g/cm2, which is 0.2 SDs (T-Score) for mean peak bone mass of young normals 1.8 SDs (Z-Score) for mean peak bone mass matched for age, sex, weight, ethnicity 10-year Fracture Risk (FRAX): Major osteoporotic fracture risk 0.7% Hip fracture risk 0.3% IMPRESSION: The patient's T- scores meet the World Health Organization classification for osteopenia in the lumbar spine. This patient may have an increased risk of insufficiency fracture. Recommendation: Follow up study in 2 to 4 years WORLD HEALTH ORG. CLASSIFICATION OF BONE MASS CLASSIFICATION T-SCORE Normal Greater than or equal to -1 Low Bone Mass Between -1 and -2.5 (Osteopenia) Osteoporosis Less than or equal to -2.5 Notching Press Operator: PSCB Transcribe Date/Time: Jan 27 2018 1:17P Dictated by : TIAGO SMITH DO This examination was interpreted and the report reviewed and electronically signed by: TIAGO SMITH DO on Jan 30 2018 2:42PM EST [id number] PROGRESS Observed: 01/27/2018 Status: COMPLETED Source: [place] 10:09 AM [facility] REPOSITORY HNO ID: [id number] Author: Handy Paulson (Rt) Miranda Melton Service: (none) Author Type: Blender Snuff Type: Progress Notes Filed: 01/27/2018 10:20 AM Note Text: Radiology Service Progress Note PATIENT NAME: Nichole Herrera DATE OF SERVICE: January 27, 2018 TIME: 10:09 AM PATIENT IDENTITY VERIFICATION COMPLETED USING TWO (2) METHODS: Patient confirmed name verbally and Date of . PATIENT GENDER DATA: Female. status: : No status: NO. PATIENT RELEVANT IMPLANT DATA REVIEWED: Not Applicable RADIOLOGY DEPARTMENT: [facility] bone density PERIPHERAL IV DATA: Not applicable SIGNED BY: RT Torito January 27, 2018 10:09 AM PROGRESS Observed: 01/12/2018 Status: COMPLETED Source: [place] 1:37 PM [facility] REPOSITORY HNO ID: [id number] Author: Maryam Arevalo Service: (none) Author Type: Physician Type: Progress Notes Filed: 01/12/2018 6:35 PM Note Text: Reason for Visit Patient presents with: Established Patient: 3 month follow up-refills Nichole Herrera is a 67 year old female who presents here today for Above Complaints.. Health Maintenance BP CONTROLLED (<130/80) BONE DENSITY PNEUMOVAX AGE 65 AND OVER WITH 5YR LOOKBACK(1) INFLUENZA(1) HPI ? Last visit we took her off the lisinopril And she thinks that her cough may have gotten a little better. Has a strong family history of asthma, she herself has some bronchitis, She had a bout of SOB, she has a chronic cough on and off but is also on lisinopril. ? She has been having fatigue , gradually getting worse over the past few months, gaining weight and less, energy, less drive to do anything. Gaining weight , BMS are normal, skin is very dry. Kidney stones Patient has kidney stones had a stent and percutaneous nephrostomy to get the kidney stones out. Stent was removed in 1 weeks, she had yeast infection and rashes after the antibiotics. ? Currently she has a rash under her breast. ? ? Kidney stones Patient has kidney stones had a stent and lithotripsy but no complaints since the past visit ? ? Hyperlipidemia, mixed ? Her numbers have improved and her back to normal but over all a little on the higher side. Can do a little diet and exercises. ? ? Essential hypertension, benign BP is well controlled on ?current regimen of medicines , we are stopping the lisinopril. ? ? Anxiety neurosis. ? Working well on [email or web address]. No problem-specific Assessment AND Plan notes found for this encounter. 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 Has a son who had bladder cancer, was treated and is doing fine right now. 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/2009 - NEVUS BACK///BENIGN ANGELIQUE SKIN TRUNK 01/24/2008 - Obesity, unspecified - Other chronic dermatitis due to solar radiation 01/24/2008 - Other seborrheic keratosis 01/24/2008 - Panic disorder without agoraphobia - Personal history of malignant melanoma of skin 10/26/2005 - Reflux esophagitis - Scar condition and fibrosis of skin 01/24/2008 - SOLAR LENGINES///DYSCHROMIA OTHER 01/24/2008 PAST SURGICAL HISTORY Procedure Laterality Date - COLONOSCOP W/ OR W/O [facility] SPEC 11/17/2013 Colonoscopy - CRANIOTOMY TEMPORL LOBECTOMY 03/07/2015 acoustic neuroma removal - CT BRAIN WITHOUT CONTRAST 03/07/2015 normal - PAST SURGICAL HISTORY OF 06/02 catarract /rt. eye - PAST SURGICAL HISTORY OF 1999 catraract /lt. eye - PAST SURGICAL HISTORY OF 06/2007 remove tumor=acoustic neuroma - REMOVAL GALLBLADDER 1987 Cholecystectomy (open) FAMILY HISTORY Problem Relation Age of Onset - other (HEART DISEASE [Other]) Father - other (KIDNEY STONES [Other]) Mother - other (BLADDER CANCER [Other]) Son - Diabetes Mother age 70's - Heart Father - Heart Brother - Heart Paternal Grandfather - other (high cholesterol [Other]) Mother - Seizures Sister - Headache Son migraines - Diabetes Brother starting age 50's - Colon Cancer Other none Social History Substance Use Topics - Smoking status: Never Smoker - Smokeless tobacco: Never Used - Alcohol use No Past medical history, appointments, medications, allergies reviewed. Pertinent Lab/Diagnostic Studies are reviewed and discussed today Current Outpatient Prescriptions: - omeprazole (PRILOSEC) 20 mg capsule - Melatonin 5 mg cap - albuterol HFA (PROAIR HFA) 90 mcg/actuation inhaler - pravastatin (PRAVACHOL) 10 mg tablet - clotrimazole (LOTRIMIN, CLOTRIM) 1 % cream - busPIRone (BUSPAR) 5 mg tablet - loratadine (CLARITIN) 10 mg tablet - Aspirin 81 mg Tab - FOLIC ACID 800 MCG TAB - calcium citrate/vitamin d3(CITRACAL + D 315 MG-200 UNIT TAB) - THERAPEUTIC MULTIVITAMIN TAB Review of Systems CONSTITUTIONAL: No fevers, chills night sweats, unintended weight loss CARDIOVASCULAR: No chest pain, dyspnea, palpitations, orthopnea, PND, ankle edema. PULM: No dyspnea, unexplained cough. GI: No dysphagia/odynophagia, problematic reflux, constipation, diarrhea, changes in stool habits, hematochezia, melena. : No new urinary complaints, including dysuria, gross hematuria or pyuria. NEURO: No new balance problems, peripheral weakness/paresthesias or numbness of concern. Physical Exam BP 134/72 (BP Site: Left Arm, BP Position: Sitting, BP Cuff Size: Large Adult) Pulse 75 Resp 14 Ht 172.1 cm (5' 7.75) Wt 118.8 kg (262 lb) SpO2 94% BMI 40.13 kg/m? General appearance: Well appearing, alert, in no acute distress, well nourished. Skin: Skin color, texture, turgor normal, no suspicious rashes or lesions Head: Normocephalic, no masses, lesions, tenderness or abnormalities Eyes: Anicteric sclera. Pupils are equally round and reactive to light. Extraocular movements are intact. Lungs: Lungs clear to auscultation. No wheezing, rhonchi, rales Heart: RRR without murmur, gallop, or rubs. Extremities: No deformities, edema, skin discoloration, clubbing or cyanosis. Good capillary refill. ASSESSMENT/PLAN: 1. Osteoporosis, unspecified osteoporosis type, unspecified pathological fracture presence - ICD9: 733.00, ICD10: M81.0 (primary diagnosis) - Reviewed the need for Calcium and Vitamin D supplements and weight bearing exercise as tolerated - DXA-AXIAL SKELETON - VITAMIN D 25 HYDROXY 2. Generalized anxiety disorder - ICD9: 300.02, ICD10: F41.1 - BUSPIRONE 5 MG TABLET 3. Need for vaccination - ICD9: V05.9, ICD10: Z23 - ADMIN OF INFLUENZA VACCINE - INFLUENZA SEASONAL HIGH DOSE AGE 65+ 4. Weight gain - ICD9: 783.1, ICD10: R63.5 - TSH BLD 5. Essential hypertension, benign - ICD9: 401.1, ICD10: I10 - good control - Recommended regular aerobic exercise. - Recommend home blood pressure monitoring, to bring results in on next visit - Goal of BP <130/80 MARYAM AREVALO MD CNOV Observed: 01/12/2018 Status: COMPLETED Source: [place] 1:00 PM [facility] REPOSITORY Office Visit (INTMWS) ANABELLENICHOLE Ronak ([id number]) 1950 F Date Time Provider Department 01/12/18 1:00 PM MARYAM AREVALO INTMWS During your visit today, we recorded the following information about you: Pulse Respiration Blood pressure Weight 75/minute 14/minute 134/72 118.8 kg Height 1.721 m MARYAM AREVALO MD 01/12/2018 6:35 PM Signed Reason for Visit Patient presents with: Established Patient: 3 month follow up-refills Nichole Herrera is a 67 year old female who presents here today for Above Complaints.. Health Maintenance BP CONTROLLED (<130/80) BONE DENSITY PNEUMOVAX AGE 65 AND OVER WITH 5YR LOOKBACK(1) INFLUENZA(1) HPI ? Last visit we took her off the lisinopril And she thinks that her cough may have gotten a little better. Has a strong family history of asthma, she herself has some bronchitis, She had a bout of SOB, she has a chronic cough on and off but is also on lisinopril. ? She has been having fatigue , gradually getting worse over the past few months, gaining weight and less, energy, less drive to do anything. Gaining weight , BMS are normal, skin is very dry. Kidney stones Patient has kidney stones had a stent and percutaneous nephrostomy to get the kidney stones out. Stent was removed in 1 weeks, she had yeast infection and rashes after the antibiotics. ? Currently she has a rash under her breast. ? ? Kidney stones Patient has kidney stones had a stent and lithotripsy but no complaints since the past visit ? ? Hyperlipidemia, mixed ? Her numbers have improved and her back to normal but over all a little on the higher side. Can do a little diet and exercises. ? ? Essential hypertension, benign BP is well controlled on ?current regimen of medicines , we are stopping the lisinopril. ? ? Anxiety neurosis. ? Working well on [email or web address]. No problem-specific Assessment AND Plan notes found for this encounter. 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 Has a son who had bladder cancer, was treated and is doing fine right now. 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/2009 - NEVUS BACK///BENIGN ANGELIQUE SKIN TRUNK 01/24/2008 - Obesity, unspecified - Other chronic dermatitis due to solar radiation 01/24/2008 - Other seborrheic keratosis 01/24/2008 - Panic disorder without agoraphobia - Personal history of malignant melanoma of skin 10/26/2005 - Reflux esophagitis - Scar condition and fibrosis of skin 01/24/2008 - SOLAR LENGINES///DYSCHROMIA OTHER 01/24/2008 PAST SURGICAL HISTORY Procedure Laterality Date - COLONOSCOP W/ OR W/O [facility] SPEC 11/17/2013 Colonoscopy - CRANIOTOMY TEMPORL LOBECTOMY 03/07/2015 acoustic neuroma removal - CT BRAIN WITHOUT CONTRAST 03/07/2015 normal - PAST SURGICAL HISTORY OF 06/02 catarract /rt. eye - PAST SURGICAL HISTORY OF 1999 catraract /lt. eye - PAST SURGICAL HISTORY OF 06/2007 remove tumor=acoustic neuroma - REMOVAL GALLBLADDER 1987 Cholecystectomy (open) FAMILY HISTORY Problem Relation Age of Onset - other (HEART DISEASE [Other]) Father - other (KIDNEY STONES [Other]) Mother - other (BLADDER CANCER [Other]) Son - Diabetes Mother age 70's - Heart Father - Heart Brother - Heart Paternal Grandfather - other (high cholesterol [Other]) Mother - Seizures Sister - Headache Son migraines - Diabetes Brother starting age 50's - Colon Cancer Other none Social History Substance Use Topics - Smoking status: Never Smoker - Smokeless tobacco: Never Used - Alcohol use No Past medical history, appointments, medications, allergies reviewed. Pertinent Lab/Diagnostic Studies are reviewed and discussed today Current Outpatient Prescriptions: - omeprazole (PRILOSEC) 20 mg capsule - Melatonin 5 mg cap - albuterol HFA (PROAIR HFA) 90 mcg/actuation inhaler - pravastatin (PRAVACHOL) 10 mg tablet - clotrimazole (LOTRIMIN, CLOTRIM) 1 % cream - busPIRone (BUSPAR) 5 mg tablet - loratadine (CLARITIN) 10 mg tablet - Aspirin 81 mg Tab - FOLIC ACID 800 MCG TAB - calcium citrate/vitamin d3(CITRACAL + D 315 MG-200 UNIT TAB) - THERAPEUTIC MULTIVITAMIN TAB Review of Systems CONSTITUTIONAL: No fevers, chills night sweats, unintended weight loss CARDIOVASCULAR: No chest pain, dyspnea, palpitations, orthopnea, PND, ankle edema. PULM: No dyspnea, unexplained cough. GI: No dysphagia/odynophagia, problematic reflux, constipation, diarrhea, changes in stool habits, hematochezia, melena. : No new urinary complaints, including dysuria, gross hematuria or pyuria. NEURO: No new balance problems, peripheral weakness/paresthesias or numbness of concern. Physical Exam BP 134/72 (BP Site: Left Arm, BP Position: Sitting, BP Cuff Size: Large Adult) Pulse 75 Resp 14 Ht 172.1 cm (5' 7.75) Wt 118.8 kg (262 lb) SpO2 94% BMI 40.13 kg/m? General appearance: Well appearing, alert, in no acute distress, well nourished. Skin: Skin color, texture, turgor normal, no suspicious rashes or lesions Head: Normocephalic, no masses, lesions, tenderness or abnormalities Eyes: Anicteric sclera. Pupils are equally round and reactive to light. Extraocular movements are intact. Lungs: Lungs clear to auscultation. No wheezing, rhonchi, rales Heart: RRR without murmur, gallop, or rubs. Extremities: No deformities, edema, skin discoloration, clubbing or cyanosis. Good capillary refill. ASSESSMENT/PLAN: 1. Osteoporosis, unspecified osteoporosis type, unspecified pathological fracture presence - ICD9: 733.00, ICD10: M81.0 (primary diagnosis) - Reviewed the need for Calcium and Vitamin D supplements and weight bearing exercise as tolerated - DXA-AXIAL SKELETON - VITAMIN D 25 HYDROXY 2. Generalized anxiety disorder - ICD9: 300.02, ICD10: F41.1 - BUSPIRONE 5 MG TABLET 3. Need for vaccination - ICD9: V05.9, ICD10: Z23 - ADMIN OF INFLUENZA VACCINE - INFLUENZA SEASONAL HIGH DOSE AGE 65+ 4. Weight gain - ICD9: 783.1, ICD10: R63.5 - TSH BLD 5. Essential hypertension, benign - ICD9: 401.1, ICD10: I10 - good control - Recommended regular aerobic exercise. - Recommend home blood pressure monitoring, to bring results in on next visit - Goal of BP <130/80 MARYAM AREVALO MD Referring Provider: MARYAM AREVALO [[id number]] Allergies As of Date: 01/12/2018 Noted Allergy Reaction environmental [Other] 08/11/2005 Comments: stuffy nose, itchy eyes Date Reviewed: 01/12/2018 Reviewed by: Idalmis Cruz LPN - Fully Assessed Reason for Visit: Established Patient [175] Cmt: 3 month follow up-refills Primary Visit Diagnosis:Osteoporosis, unspecified osteoporosis type, unspecified pathological fracture presence [M81.0] Other Visit Diagnoses:Generalized anxiety disorder [F41.1] Need for vaccination [Z23] Weight gain [R63.5] Essential hypertension, benign [I10] Order(s):ADMIN OF INFLUENZA VACCINE [[id number]] Order #: [id number]: 1 INFLUENZA SEASONAL HIGH DOSE AGE 65+ [[id number]] Order #: [id number] busPIRone (BUSPAR) 5 mg tabletTake 1 tablet by mouth three times daily.Disp: 90 tabletRfl: 11 DXA-AXIAL SKELETON [[id number]] Order #: [id number] FUTURE TSH BLD [SQTSH] Order #: [id number] FUTURE VITAMIN D 25 HYDROXY [SQVITD] Order #: [id number] FUTURE Prescriptions as of 01/12/2018 Sig: BUSPIRONE 5 MG TABLET Take 1 tablet by mouth three * X LOSARTAN 25 MG TABLET Take 1 tablet by mouth twice * OMEPRAZOLE 20 MG CAPSULE,VERA* Take 1 capsule by mouth once * MELATONIN 5 MG CAPSULE Take by mouth. ALBUTEROL SULFATE HFA 90 MCG/* Inhale 2 Puffs as instructed * PRAVASTATIN 10 MG TABLET TAKE ONE TABLET BY MOUTH ONCE* CLOTRIMAZOLE 1 % TOPICAL CREAM Apply 1 application to affect* LORATADINE 10 MG TABLET Take 1 tablet by mouth once d* ASPIRIN 81 MG TABLET Take 1 tablet by mouth once d* FOLIC ACID 800 MCG TABLET Take one(1) tablet daily. CITRACAL PLUS D 315 MG-200 UN* take one daily THERAPEUTIC MULTIVITAMIN TABL* Take one(1) tablet daily. Problem List As Of Date 01/12/2018 Noted Resolved GERD (gastroesophageal reflux disease) [K21.9] INVALID FOR* Priority: A More... Obesity, unspecified [E66.9] INVALID FOR* Priority: B More... Allergic Rhinitis, Cause Unspecified [J30.9] INVALID FOR* Priority: A Personal history of malignant melanoma of skin *INVALID FOR*12/03/2016 Essential hypertension, benign [I10] INVALID FOR* Priority: A More... 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 Routine gynecological examination [Z01.419] INVALID FOR*09/30/2011 Class: Chronic More... Hyperlipidemia, mixed [E78.2] INVALID FOR* Priority: A More... More... Mucous polyp of cervix [N84.1] INVALID FOR*04/19/2013 More... Panic attack [F41.0] INVALID FOR* More... Insomnia [G47.00] INVALID FOR* More... Vitamin D deficiency [E55.9] INVALID FOR* More... Acoustic neuroma (HCC) [D33.3] INVALID FOR* More... Anxiety neurosis [F41.1] INVALID FOR* More... Kidney stones [N20.0] INVALID FOR* More... Prescriptions ordered this encounter Disp Refills Start End BUSPIRONE 5 MG TABLET 90 t* 11 01/12/2018 Route: ORAL Sig: Take 1 tablet by mouth three times daily. LOSARTAN 25 MG TABLET 90 t* 3 01/12/2018 01/13/2018 Route: ORAL Sig: Take 1 tablet by mouth twice daily. Medications Discontinued During This Encounter busPIRone (BUSPAR) 5 mg tablet 90 t* 11 12/23/2016 01/12/2018 Route: ORAL Sig: Take 1 tablet by mouth three times daily. Disc: Reason for discontinue is not on file. Encounter Status:Closed by MARYAM AREVALO MD on 01/12/18 CNCO Observed: 11/02/2017 Status: COMPLETED Source: [place] 2:45 PM [facility] REPOSITORY [facility] ID: [id number] Author: Mammography Coordinator Service: (none) Author Type: Physician Type: Letter Filed: 11/03/2017 11:32 PM Note Text: November 02, 2017 PID: [id number] Nichole Herrera [address] [place] [address] Dear Ms. Herrera, We are pleased to inform you that the results of your recent breast imaging exam on 11/02/2017 are normal. Early detection of cancer is very important. We also understand recommendations regarding breast cancer screening are controversial. Please discuss with your primary care provider which strategy is best for you and whether a mammogram is right for you. Your imaging studies and report will be kept on file at [facility] as part of your permanent medical record and are available for your continuing care. Thank you for allowing us to help in meeting your health care needs. Sincerely, Dr. Harmon Interpreting Radiologist [facility] (Normal over 40) [facility] SCREENING Observed: 11/02/2017 Status: F Source: [place] 1:26 PM [facility] [place] REPOSITORY * * *Final Report* * * DATE OF EXAM: Nov 02 2017 1:26PM GUST[facility] [id number] - [facility] SCREENING / PROCEDURE REASON: Encounter for screening mammogram for malignant neoplasm of breast * * * * Physician Interpretation * * * * RESULT: #[id number] - [facility] SCREENING BILATERAL DIGITAL SCREENING MAMMOGRAM WITH CAD: 11/02/2017 HISTORY: Screening Mammogram - patient reports NO breast symptoms /priors available for comparison. RESULT: TECHNIQUE: The study was acquired using full field digital technology and interpreted from soft copy. Current study was also evaluated with a Computer Aided Detection (CAD). Comparison is made to exams dated: 05/20/2016 mammogram - [facility], 05/01/2016 mammogram, 04/30/2015 mammogram, and 04/25/2014 mammogram - [facility]. There are scattered fibroglandular elements in both breasts. No significant masses, calcifications, or other findings are seen in either breast. There has been no significant interval change. IMPRESSION: NEGATIVE There is no mammographic evidence of malignancy.A 1 year screening mammogram is recommended. Leesa ocampo/oanh:11/02/2017 14:45:07 Barrel Liner: Farrah JUÁREZ(Truman)(Ronak), [facility] letter sent: Normal over 40 Mammogram BI-RADS: 1 Negative Notching Press Operator: Oanh Transcribe Date/Time: Nov 02 2017 1:03P Dictated by: LEESA HARMON MD This examination was interpreted and the report reviewed and electronically signed by: LEESA HARMON MD on Nov 02 2017 2:45PM EST [id number] PROGRESS Observed: 11/02/2017 Status: COMPLETED Source: [place] 1:02 PM [facility] REPOSITORY HNO ID: [id number] Author: Jennyfer Juárez Service: (none) Author Type: (none) Type: Progress Notes Filed: 11/02/2017 1:02 PM Note Text: Radiology Service Progress Note PATIENT NAME: Nichole Herrera DATE OF SERVICE: November 02, 2017 TIME: 1:02 PM PATIENT IDENTITY VERIFICATION COMPLETED USING TWO (2) METHODS: Patient confirmed name verbally and Date of . PATIENT GENDER DATA: Female. status: : No status: NO. PATIENT RELEVANT IMPLANT DATA REVIEWED: Not Applicable RADIOLOGY DEPARTMENT: [facility] DATA: Not applicable SIGNED BY: Jennyfer Juárez November 02, 2017 1:02 PM PROGRESS Observed: 10/12/2017 Status: COMPLETED Source: [place] 12:15 PM [facility] REPOSITORY HNO ID: [id number] Author: Maryam Arevalo Service: (none) Author Type: Physician Type: Progress Notes Filed: 10/12/2017 1:11 PM Note Text: Reason for Visit Patient presents with: F/U 6 Month: Medications Nichole Herrera is a 66 year old female who presents here today for Above Complaints.. Health Maintenance ZOSTER VACCINE (SHINGRIX)(1 of 2) BONE DENSITY ADULT PREVNAR-13 PNEUMOVAX AGE 65 AND OVER WITH 5YR LOOKBACK(1) MAMMOGRAM HPI Has a strong family history of asthma, she her self has some bronchitis, She had a bout of SOB, she has a chronic cough on and off but is also on lisinopril. ? Kidney stones Patient has kidney stones had a stent and percutaneous nephrostomy to get the kidney stones out. Stent was removed in 1 weeks, she had yeast infection and rashes after the antibiotics. ? Currently she has a rash under her breast. ? ? Kidney stones Patient has kidney stones had a stent and lithotripsy but no complaints since the past visit ? ? Hyperlipidemia, mixed ? Her numbers have improved and her back to normal but over all a little on the higher side. Can do a little diet and exercises. ? ? Essential hypertension, benign BP is well controlled on current regimen of medicines , we are stopping the lisinopril. ? Anxiety neurosis. ? Working well on buspar. No problem-specific Assessment AND Plan notes found for this encounter. 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 Has a son who had bladder cancer, was treated and is doing fine right now. 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/2009 - NEVUS BACK///BENIGN ANGELIQUE SKIN TRUNK 01/24/2008 - Obesity, unspecified - Other chronic dermatitis due to solar radiation 01/24/2008 - Other seborrheic keratosis 01/24/2008 - Panic disorder without agoraphobia - Personal history of malignant melanoma of skin 10/26/2005 - Reflux esophagitis - Scar condition and fibrosis of skin 01/24/2008 - SOLAR LENGINES///DYSCHROMIA OTHER 01/24/2008 PAST SURGICAL HISTORY Procedure Laterality Date - COLONOSCOP W/ OR W/O [facility] SPEC 11/17/2013 Colonoscopy - CRANIOTOMY TEMPORL LOBECTOMY 03/07/2015 acoustic neuroma removal - CT BRAIN WITHOUT CONTRAST 03/07/2015 normal - PAST SURGICAL HISTORY OF 06/02 catarract /rt. eye - PAST SURGICAL HISTORY OF 1999 catraract /lt. eye - PAST SURGICAL HISTORY OF 06/2007 remove tumor=acoustic neuroma - REMOVAL GALLBLADDER 1987 Cholecystectomy (open) FAMILY HISTORY Problem Relation Age of Onset - HEART DISEASE [Other] [OTHER] Father - KIDNEY STONES [Other] [OTHER] Mother - BLADDER CANCER [Other] [OTHER] Son - Diabetes Mother age 70's - Heart Father - Heart Brother - Heart Paternal Grandfather - high cholesterol [Other] [OTHER] Mother - Seizures Sister - Headache Son migraines - Diabetes Brother starting age 50's - Colon Cancer Other none Social History Substance Use Topics - Smoking status: Never Smoker - Smokeless tobacco: Never Used - Alcohol use No Past medical history, appointments, medications, allergies reviewed. Pertinent Lab/Diagnostic Studies are reviewed and discussed today Current Outpatient Prescriptions: - Melatonin 5 mg cap - albuterol HFA (PROAIR HFA) 90 mcg/actuation inhaler - pravastatin (PRAVACHOL) 10 mg tablet - busPIRone (BUSPAR) 5 mg tablet - omeprazole (PRILOSEC) 20 mg capsule - lisinopril (ZESTRIL, PRINIVIL) 20 mg tablet - loratadine (CLARITIN) 10 mg tablet - Aspirin 81 mg Tab - FOLIC ACID 800 MCG TAB - calcium citrate/vitamin d3(CITRACAL + D 315 MG-200 UNIT TAB) - THERAPEUTIC MULTIVITAMIN TAB - clotrimazole (LOTRIMIN, CLOTRIM) 1 % cream Review of Systems CONSTITUTIONAL: No fevers, chills night sweats, unintended weight loss CARDIOVASCULAR: No chest pain, dyspnea, palpitations, orthopnea, PND, ankle edema. PULM: No dyspnea, unexplained cough. GI: No dysphagia/odynophagia, problematic reflux, constipation, diarrhea, changes in stool habits, hematochezia, melena. : No new urinary complaints, including dysuria, gross hematuria or pyuria. NEURO: No new balance problems, peripheral weakness/paresthesias or numbness of concern. Physical Exam BP 108/70 (BP Site: Left Arm, BP Position: Sitting, BP Cuff Size: Large Adult) Pulse 72 Resp 16 Wt 117.5 kg (259 lb 0.6 oz) BMI 39.68 kg/m? General appearance: Well appearing, alert, in no acute distress, well nourished. Skin: Skin color, texture, turgor normal, no suspicious rashes or lesions Head: Normocephalic, no masses, lesions, tenderness or abnormalities Eyes: Anicteric sclera. Pupils are equally round and reactive to light. Extraocular movements are intact. Lungs: Lungs clear to auscultation. No wheezing, rhonchi, rales Heart: RRR without murmur, gallop, or rubs. Extremities: No deformities, edema, skin discoloration, clubbing or cyanosis. Good capillary refill. ASSESSMENT/PLAN: 1. Essential hypertension, benign - ICD9: 401.1, ICD10: I10 (primary diagnosis) - good control - Recommended regular aerobic exercise. - Recommend home blood pressure monitoring, to bring results in on next visit - Goal of BP <130/80 - LISINOPRIL 20 MG TABLET 2. Gastroesophageal reflux disease, esophagitis presence not specified - ICD9: 530.81, ICD10: K21.9 - Discussed lifestyle modifications including losing weight, limiting caffeine, no meals three hours before sleep and head of bed elevation - OMEPRAZOLE 20 MG CAPSULE,DELAYED RELEASE 3. Hyperlipidemia, mixed - ICD9: 272.2, ICD10: E78.2 - good control - Continue current medication. 4. 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 Encounter for screening mammogram for malignant neoplasm of breast - ICD9: V76.12, ICD10: Z12.31 - Encouraged monthly BSE - Follow up for annual exam in one year. - [facility] SCREENING 7. Need for vaccination - ICD9: V05.9, ICD10: Z23 - PNEUMOCOCCAL-13 VACCINE PCV-13 8. Cough - ICD9: 786.2, ICD10: R05 Stop lisinopril for 6 weeks due to cough Check bp at least weekly and report to. - METHACHOLINE CHALLENGE 9. SOB (shortness of breath) - ICD9: 786.05, ICD10: R06.02 ? Cough variant asthma 10. Abnormality of left breast on screening mammogram - ICD9: 793.80, ICD10: R92.8 She has an oval lesion on the left breast. - [facility] SEAN AREVALO MD CNOV Observed: 10/12/2017 Status: COMPLETED Source: [place] 11:40 AM [facility] REPOSITORY Office Visit (INTMWS) NICHOLE HERRERA ([id number]) 1950 F Date Time Provider Department 10/12/17 11:40 AM MARYAM ARVEALO INTMWS During your visit today, we recorded the following information about you: Pulse Respiration Blood pressure Weight 72/minute 16/minute 108/70 117.5 kg MARYAM AREVALO MD 10/12/2017 1:11 PM Signed Reason for Visit Patient presents with: F/U 6 Month: Medications Nichole Herrera is a 66 year old female who presents here today for Above Complaints.. Health Maintenance ZOSTER VACCINE (SHINGRIX)(1 of 2) BONE DENSITY ADULT PREVNAR-13 PNEUMOVAX AGE 65 AND OVER WITH 5YR LOOKBACK(1) MAMMOGRAM HPI Has a strong family history of asthma, she her self has some bronchitis, She had a bout of SOB, she has a chronic cough on and off but is also on lisinopril. ? Kidney stones Patient has kidney stones had a stent and percutaneous nephrostomy to get the kidney stones out. Stent was removed in 1 weeks, she had yeast infection and rashes after the antibiotics. ? Currently she has a rash under her breast. ? ? Kidney stones Patient has kidney stones had a stent and lithotripsy but no complaints since the past visit ? ? Hyperlipidemia, mixed ? Her numbers have improved and her back to normal but over all a little on the higher side. Can do a little diet and exercises. ? ? Essential hypertension, benign BP is well controlled on current regimen of medicines , we are stopping the lisinopril. ? Anxiety neurosis. ? Working well on buspar. No problem-specific Assessment AND Plan notes found for this encounter. 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 Has a son who had bladder cancer, was treated and is doing fine right now. 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/2009 - NEVUS BACK///BENIGN ANGELIQUE SKIN TRUNK 01/24/2008 - Obesity, unspecified - Other chronic dermatitis due to solar radiation 01/24/2008 - Other seborrheic keratosis 01/24/2008 - Panic disorder without agoraphobia - Personal history of malignant melanoma of skin 10/26/2005 - Reflux esophagitis - Scar condition and fibrosis of skin 01/24/2008 - SOLAR LENGINES///DYSCHROMIA OTHER 01/24/2008 PAST SURGICAL HISTORY Procedure Laterality Date - COLONOSCOP W/ OR W/O [facility] SPEC 11/17/2013 Colonoscopy - CRANIOTOMY TEMPORL LOBECTOMY 03/07/2015 acoustic neuroma removal - CT BRAIN WITHOUT CONTRAST 03/07/2015 normal - PAST SURGICAL HISTORY OF 06/02 catarract /rt. eye - PAST SURGICAL HISTORY OF 1999 catraract /lt. eye - PAST SURGICAL HISTORY OF 06/2007 remove tumor=acoustic neuroma - REMOVAL GALLBLADDER 1987 Cholecystectomy (open) FAMILY HISTORY Problem Relation Age of Onset - HEART DISEASE [Other] [OTHER] Father - KIDNEY STONES [Other] [OTHER] Mother - BLADDER CANCER [Other] [OTHER] Son - Diabetes Mother age 70's - Heart Father - Heart Brother - Heart Paternal Grandfather - high cholesterol [Other] [OTHER] Mother - Seizures Sister - Headache Son migraines - Diabetes Brother starting age 50's - Colon Cancer Other none Social History Substance Use Topics - Smoking status: Never Smoker - Smokeless tobacco: Never Used - Alcohol use No Past medical history, appointments, medications, allergies reviewed. Pertinent Lab/Diagnostic Studies are reviewed and discussed today Current Outpatient Prescriptions: - Melatonin 5 mg cap - albuterol HFA (PROAIR HFA) 90 mcg/actuation inhaler - pravastatin (PRAVACHOL) 10 mg tablet - busPIRone (BUSPAR) 5 mg tablet - omeprazole (PRILOSEC) 20 mg capsule - lisinopril (ZESTRIL, PRINIVIL) 20 mg tablet - loratadine (CLARITIN) 10 mg tablet - Aspirin 81 mg Tab - FOLIC ACID 800 MCG TAB - calcium citrate/vitamin d3(CITRACAL + D 315 MG-200 UNIT TAB) - THERAPEUTIC MULTIVITAMIN TAB - clotrimazole (LOTRIMIN, CLOTRIM) 1 % cream Review of Systems CONSTITUTIONAL: No fevers, chills night sweats, unintended weight loss CARDIOVASCULAR: No chest pain, dyspnea, palpitations, orthopnea, PND, ankle edema. PULM: No dyspnea, unexplained cough. GI: No dysphagia/odynophagia, problematic reflux, constipation, diarrhea, changes in stool habits, hematochezia, melena. : No new urinary complaints, including dysuria, gross hematuria or pyuria. NEURO: No new balance problems, peripheral weakness/paresthesias or numbness of concern. Physical Exam BP 108/70 (BP Site: Left Arm, BP Position: Sitting, BP Cuff Size: Large Adult) Pulse 72 Resp 16 Wt 117.5 kg (259 lb 0.6 oz) BMI 39.68 kg/m? General appearance: Well appearing, alert, in no acute distress, well nourished. Skin: Skin color, texture, turgor normal, no suspicious rashes or lesions Head: Normocephalic, no masses, lesions, tenderness or abnormalities Eyes: Anicteric sclera. Pupils are equally round and reactive to light. Extraocular movements are intact. Lungs: Lungs clear to auscultation. No wheezing, rhonchi, rales Heart: RRR without murmur, gallop, or rubs. Extremities: No deformities, edema, skin discoloration, clubbing or cyanosis. Good capillary refill. ASSESSMENT/PLAN: 1. Essential hypertension, benign - ICD9: 401.1, ICD10: I10 (primary diagnosis) - good control - Recommended regular aerobic exercise. - Recommend home blood pressure monitoring, to bring results in on next visit - Goal of BP <130/80 - LISINOPRIL 20 MG TABLET 2. Gastroesophageal reflux disease, esophagitis presence not specified - ICD9: 530.81, ICD10: K21.9 - Discussed lifestyle modifications including losing weight, limiting caffeine, no meals three hours before sleep and head of bed elevation - OMEPRAZOLE 20 MG CAPSULE,DELAYED RELEASE 3. Hyperlipidemia, mixed - ICD9: 272.2, ICD10: E78.2 - good control - Continue current medication. 4. 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 Encounter for screening mammogram for malignant neoplasm of breast - ICD9: V76.12, ICD10: Z12.31 - Encouraged monthly BSE - Follow up for annual exam in one year. - [facility] SCREENING 7. Need for vaccination - ICD9: V05.9, ICD10: Z23 - PNEUMOCOCCAL-13 VACCINE PCV-13 8. Cough - ICD9: 786.2, ICD10: R05 Stop lisinopril for 6 weeks due to cough Check bp at least weekly and report to. - METHACHOLINE CHALLENGE 9. SOB (shortness of breath) - ICD9: 786.05, ICD10: R06.02 ? Cough variant asthma 10. Abnormality of left breast on screening mammogram - ICD9: 793.80, ICD10: R92.8 She has an oval lesion on the left breast. - [facility] SEAN AREVALO MD Referring Provider: SELF [200] Allergies As of Date: 10/12/2017 Noted Allergy Reaction environmental [Other] 08/11/2005 Comments: stuffy nose, itchy eyes Date Reviewed: 10/12/2017 Reviewed by: Heidy Sharpe Ma - Fully Assessed Reason for Visit: F/U 6 Month [444] Cmt: Medications Primary Visit Diagnosis:Essential hypertension, benign [I10] Other Visit Diagnoses:Gastroesophageal reflux disease, esophagitis presence not specified [K21.9] Hyperlipidemia, mixed [E78.2] Panic attack [F41.0] Anxiety neurosis [F41.1] Encounter for screening mammogram for malignant neoplasm of breast [Z12.31] Need for vaccination [Z23] Cough [R05] SOB (shortness of breath) [R06.02] Abnormality of left breast on screening mammogram [R92.8] Order(s):omeprazole (PRILOSEC) 20 mg capsuleTake 1 capsule by mouth once daily.Disp: 90 capsuleRfl: 3 PNEUMOCOCCAL-13 VACCINE PCV-13 [[id number]] Order #: [id number] METHACHOLINE CHALLENGE [[id number]] Order #: [id number] FUTURE MINNA DIAG W CHRISS BILAT [[id number]] Order #: [id number] FUTURE Prescriptions as of 10/12/2017 Sig: OMEPRAZOLE 20 MG CAPSULE,VERA* Take 1 capsule by mouth once * MELATONIN 5 MG CAPSULE Take by mouth. ALBUTEROL SULFATE HFA 90 MCG/* Inhale 2 Puffs as instructed * PRAVASTATIN 10 MG TABLET TAKE ONE TABLET BY MOUTH ONCE* BUSPIRONE 5 MG TABLET Take 1 tablet by mouth three * LORATADINE 10 MG TABLET Take 1 tablet by mouth once d* ASPIRIN 81 MG TABLET Take 1 tablet by mouth once d* FOLIC ACID 800 MCG TABLET Take one(1) tablet daily. CITRACAL PLUS D 315 MG-200 UN* take one daily THERAPEUTIC MULTIVITAMIN TABL* Take one(1) tablet daily. CLOTRIMAZOLE 1 % TOPICAL CREAM Apply 1 application to affect* Problem List As Of Date 10/12/2017 Noted Resolved GERD (gastroesophageal reflux disease) [K21.9] INVALID FOR* Priority: A More... Obesity, unspecified [E66.9] INVALID FOR* Priority: B More... Allergic Rhinitis, Cause Unspecified [J30.9] INVALID FOR* Priority: A Personal history of malignant melanoma of skin *INVALID FOR*12/03/2016 Essential hypertension, benign [I10] INVALID FOR* Priority: A More... 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 Routine gynecological examination [Z01.419] INVALID FOR*09/30/2011 Class: Chronic More... Hyperlipidemia, mixed [E78.2] INVALID FOR* Priority: A More... More... Mucous polyp of cervix [N84.1] INVALID FOR*04/19/2013 More... Panic attack [F41.0] INVALID FOR* More... Insomnia [G47.00] INVALID FOR* More... Vitamin D deficiency [E55.9] INVALID FOR* More... Acoustic neuroma (HCC) [D33.3] INVALID FOR* More... Anxiety neurosis [F41.1] INVALID FOR* More... Kidney stones [N20.0] INVALID FOR* More... Prescriptions ordered this encounter Disp Refills Start End OMEPRAZOLE 20 MG CAPSULE,DELAYED REL* 90 c* 3 10/12/2017 Route: ORAL Sig: Take 1 capsule by mouth once daily. LISINOPRIL 20 MG TABLET 90 t* 3 10/12/2017 10/12/2017 Route: ORAL Sig: Take 1 tablet by mouth once daily. Medications Discontinued During This Encounter lisinopril (ZESTRIL, PRINIVIL) 20 mg* 90 t* 3 10/08/2016 10/12/2017 Class: Print RX Route: ORAL Sig: Take 1 tablet by mouth once daily. Disc: Reason for discontinue is not on file. omeprazole (PRILOSEC) 20 mg capsule 90 c* 3 10/08/2016 10/12/2017 Class: Print RX Route: ORAL Sig: Take 1 capsule by mouth once daily. Disc: Reason for discontinue is not on file. lisinopril (ZESTRIL, PRINIVIL) 20 mg* 90 t* 3 10/12/2017 10/12/2017 Route: ORAL Sig: Take 1 tablet by mouth once daily. Disc: Reason for discontinue is not on file. Encounter Status:Closed by MARYAM AREVALO MD on 10/12/17 PROGRESS Observed: 09/01/2017 Status: COMPLETED Source: [place] 10:54 AM [facility] REPOSITORY HNO ID: [id number] Author: Magnus Flores Service: (none) Author Type: Psychologist Type: Progress Notes Filed: 09/01/2017 11:02 AM Note Text: [facility] Progress Note Nichole Simons Anabelle 09/01/2017 [id number] Provider: Magnus Flores, PHD CPT Code: 52787 Psychotherapy 38-52 minutes Time: Approximately 50 minutes was spent in therapy. Parties Present: Patient Patient Presentation/Concerns: SLEEP: pt tried 5mg melatonin and sleep has improved significantly Discussed the things she does that are novel ie cook, read, camp, family, puzzles, travel etc. mom was a bit directive and irritable in last several years Pt has tended to be a little passive as a consequence and seems like she is moving back into life focus on savoring vs trying to get over ... her mother's passing Mental Status: Mood: variable Affect: mood-congruent Thoughts/Associations:goal directed Suicidal/Homicidal Ideation: None expressed or evidenced Other Observations: None Therapy Focus Self-care, Mood/affect regulation and Self-esteem MEDICATIONS: Per medical record: Current Outpatient Prescriptions: Melatonin 5 mg cap Take by mouth. albuterol HFA (PROAIR HFA) 90 mcg/actuation inhaler Inhale 2 Puffs as instructed every 4 hours as needed for Wheezing/Shortness of Breath. pravastatin (PRAVACHOL) 10 mg tablet TAKE ONE TABLET BY MOUTH ONCE DAILY clotrimazole (LOTRIMIN, CLOTRIM) 1 % cream Apply 1 application to affected area twice daily. Under the breast area (Patient not taking: Reported on 09/01/2017 ) busPIRone (BUSPAR) 5 mg tablet Take 1 tablet by mouth three times daily. omeprazole (PRILOSEC) 20 mg capsule Take 1 capsule by mouth once daily. lisinopril (ZESTRIL, PRINIVIL) 20 mg tablet Take 1 tablet by mouth once daily. loratadine (CLARITIN) 10 mg tablet Take 1 tablet by mouth once daily. Aspirin 81 mg Tab Take 1 tablet by mouth once daily. Take with food. FOLIC ACID 800 MCG TAB Take one(1) tablet daily. calcium citrate/vitamin d3(CITRACAL + D 315 MG-200 UNIT TAB) take one daily THERAPEUTIC MULTIVITAMIN TAB Take one(1) tablet daily. No current facility-administered medications for this visit. Psychiatric Medication Issues: as noted DIAGNOSIS: [place] I: Anxiety Sleep problem ... staying asleep Bereavement ? [place] II: deferred [place] III: see med record [place] IV: anxiety multiply caused [place] V: 55 Treatment Modality/Interventions: Cognitive Behavioral Reassurance/Supportive Problem solving TREATMENT ASSESSMENT/PROGRESS: . Progressing satisfactorily. TREATMENT PLAN/GOALS: Continue in therapy focusing on self- care, affect management and bereavement. Next appointment: as scheduled Magnus Flores, PHD PROGRESS Observed: 09/01/2017 Status: COMPLETED Source: [place] 8:13 AM [facility] REPOSITORY [facility] ID: [id number] Author: Claudia Wolff ([facility]) Service: (none) Author Type: Nurse Practitioner Type: Progress Notes Filed: 09/01/2017 8:46 AM Note Text: CC: Patient presents with: ED Follow-up: chest pain/ SOB HPI Nichole Herrera is a 66 year old female who presents today for [facility] admission follow up. Patient presented to the ER with complaints of SOB and some chest pain/pressure x4 days. BP was elevated at 172/98, EKG was NSR HR62, CBC, BMP and Troponin were normal CXR was unremarkable. Admitted for further workup x2 days. Patient underwent a cardiac stress test revealed: 1.Rest and stress SPECT Cardiolite nuclear imaging demonstrated relative uniform tracer uptake and myocardial perfusion appearing within normal limits 2. The gated Cardiolite study reports an LVEF of 89% Since returning home she continues to have SOB mostly with exertion which seems to be worsening with minimal activity. Patient has history of COPD, specifically chronic bronchitis but has not used her Albuterol inhaler. Reports chronic cough that is worse in the morning and history of seasonal allergies, takes Claritin. Denies further chest pain or pressure, wheezing, sinus pain/congestion, fever or chills. REVIEW OF SYSTEMS General: no fevers, no chills, no night sweats, no recurrent infections, no change in appetite, no change in energy and no significant changes in weight HEENT: no frequent or significant headaches, no changes in hearing, no visual changes, no nose bleeds, no sinus or nasal problems Neck: no lumps, no pain and no swelling Respiratory: no wheezing, no hemoptysis, See HPI Cardiovascular: no chest pain, no chest pressure, no palpitations and no swelling GI: No nausea, vomiting, or diarrhea Neurologic: No headache, weakness, numbness, tingling, neck stiffness, tremor, vertigo, memory loss, syncope. 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 Has a son who had bladder cancer, was treated and is doing fine right now. 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/2009 - NEVUS BACK///BENIGN ANGELIQUE SKIN TRUNK 01/24/2008 - Obesity, unspecified - Other chronic dermatitis due to solar radiation 01/24/2008 - Other seborrheic keratosis 01/24/2008 - Panic disorder without agoraphobia - Personal history of malignant melanoma of skin 10/26/2005 - Reflux esophagitis - Scar condition and fibrosis of skin 01/24/2008 - SOLAR LENGINES///DYSCHROMIA OTHER 01/24/2008 PAST SURGICAL HISTORY Procedure Laterality Date - COLONOSCOP W/ OR W/O [facility] SPEC 11/17/2013 Colonoscopy - CRANIOTOMY TEMPORL LOBECTOMY 03/07/2015 acoustic neuroma removal - CT BRAIN WITHOUT CONTRAST 03/07/2015 normal - PAST SURGICAL HISTORY OF 06/02 catarract /rt. eye - PAST SURGICAL HISTORY OF 1999 catraract /lt. eye - PAST SURGICAL HISTORY OF 06/2007 remove tumor=acoustic neuroma - REMOVAL GALLBLADDER 1987 Cholecystectomy (open) ALLERGIES Environmental [Other] MEDICATIONS Melatonin 5 mg cap Take by mouth. pravastatin (PRAVACHOL) 10 mg tablet TAKE ONE TABLET BY MOUTH ONCE DAILY busPIRone (BUSPAR) 5 mg tablet Take 1 tablet by mouth three times daily. omeprazole (PRILOSEC) 20 mg capsule Take 1 capsule by mouth once daily. lisinopril (ZESTRIL, PRINIVIL) 20 mg tablet Take 1 tablet by mouth once daily. loratadine (CLARITIN) 10 mg tablet Take 1 tablet by mouth once daily. Aspirin 81 mg Tab Take 1 tablet by mouth once daily. Take with food. FOLIC ACID 800 MCG TAB Take one(1) tablet daily. calcium citrate/vitamin d3(CITRACAL + D 315 MG-200 UNIT TAB) take one daily THERAPEUTIC MULTIVITAMIN TAB Take one(1) tablet daily. albuterol (PROVENTIL) 2.5 mg /3 mL (0.083 %) nebulizer solution Use 3 mL via nebulizer one time only for 1 dose. Use over 5-15minutes. azithromycin (ZITHROMAX) 250 mg tablet Take 1 tablet by mouth once daily. clotrimazole (LOTRIMIN, CLOTRIM) 1 % cream Apply 1 application to affected area twice daily. Under the breast area albuterol HFA (PROAIR HFA) 90 mcg/actuation inhaler Inhale 2 Puffs as instructed every 6 hours as needed for Wheezing/Shortness of Breath. FAMILY HISTORY Problem Relation Age of Onset - HEART DISEASE [Other] [OTHER] Father - KIDNEY STONES [Other] [OTHER] Mother - BLADDER CANCER [Other] [OTHER] Son - Diabetes Mother age 70's - Heart Father - Heart Brother - Heart Paternal Grandfather - high cholesterol [Other] [OTHER] Mother - Seizures Sister - Headache Son migraines - Diabetes Brother starting age 50's - Colon Cancer Other none Social History Substance Use Topics - Smoking status: Never Smoker - Smokeless tobacco: Never Used - Alcohol use No PHYSICAL EXAM BP 118/82 Pulse 68 Temp 37.1 ?C (98.7 ?F) (Temporal Artery) Resp 14 Wt 117.9 kg (260 lb) SpO2 97% BMI 39.83 kg/m? General Appearance: well appearing, in no acute distress, alert Head: normocephalic, atraumatic Eyes: conjunctiva pink and moist, no icterus, sclera white, non-injected Lungs: Lungs clear to auscultation, slightly diminished in the bases. No wheezing, rhonchi, rales Heart: RRR without murmur, gallop, or rubs. No ectopy Bilateral Lower Extremities: No deformities, edema, skin discoloration, clubbing or cyanosis. BONE DENSITY due on 10/30/2016 ADULT PREVNAR-13 due on 10/30/2016 PNEUMOVAX AGE 65 AND OVER WITH 5YR LOOKBACK(1) due on 10/30/2016 MAMMOGRAM due on 05/01/2017 DTAP,TDAP,TD(2 - Td) due on 09/01/2018 COLORECTAL CANCER SCREENING,SEE MODIFIER due on 11/17/2018 DIABETES SCREEN due on 04/02/2020 LIPID SCREEN due on 04/02/2022 INFLUENZA Completed HEPATITIS C SCREENING Completed ASSESSMENT/PLAN: 1. SOB (shortness of breath) - ICD9: 786.05, ICD10: R06.02 (primary diagnosis) - Worsening with exertion. No acute or concerning exam findings this visit - Recommend use of albuterol inhaler for SOB/Wheezing. Discussed use frequency and red flag signs/symptoms and when to seek immediate medical attention - ALBUTEROL SULFATE HFA 90 MCG/ACTUATION AEROSOL INHALER - LUNG VOLUMES - Follow up at previously scheduled appointment next month, sooner for new or worsening symptoms 2. Chronic bronchitis, unspecified chronic bronchitis type (HCC) - ICD9: 491.9, ICD10: J42 Plan as above, see #1 - ALBUTEROL SULFATE HFA 90 MCG/ACTUATION AEROSOL INHALER - LUNG VOLUMES Claudia Wolff APRN.[facility] Prescription instructions reviewed with patient as applicable. Potential red flag symptoms discussed with the patient. Reviewed appropriate action plan to take if red flag symptoms occur. Patient agreeable to treatment plan. CNOV Observed: 09/01/2017 Status: COMPLETED Source: [place] 8:00 AM [facility] REPOSITORY Office Visit (INTMWS) NICHOLE HERRERA ([id number]) 1950 F Date Time Provider Department 09/01/17 8:00 AM CLAUDIA WOLFF) INTMWS During your visit today, we recorded the following information about you: Temperature Pulse Respiration Blood pressure 98.7 degrees 68/minute 14/minute 118/82 Weight 117.9 kg Claudia Wolff) 09/01/2017 8:46 AM Signed CC: Patient presents with: ED Follow-up: chest pain/ SOB HPI Nichole Herrera is a 66 year old female who presents today for [facility] admission follow up. Patient presented to the ER with complaints of SOB and some chest pain/pressure x4 days. BP was elevated at 172/98, EKG was NSR HR62, CBC, BMP and Troponin were normal CXR was unremarkable. Admitted for further workup x2 days. Patient underwent a cardiac stress test revealed: 1.Rest and stress SPECT Cardiolite nuclear imaging demonstrated relative uniform tracer uptake and myocardial perfusion appearing within normal limits 2. The gated Cardiolite study reports an LVEF of 89% Since returning home she continues to have SOB mostly with exertion which seems to be worsening with minimal activity. Patient has history of COPD, specifically chronic bronchitis but has not used her Albuterol inhaler. Reports chronic cough that is worse in the morning and history of seasonal allergies, takes Claritin. Denies further chest pain or pressure, wheezing, sinus pain/congestion, fever or chills. REVIEW OF SYSTEMS General: no fevers, no chills, no night sweats, no recurrent infections, no change in appetite, no change in energy and no significant changes in weight HEENT: no frequent or significant headaches, no changes in hearing, no visual changes, no nose bleeds, no sinus or nasal problems Neck: no lumps, no pain and no swelling Respiratory: no wheezing, no hemoptysis, See HPI Cardiovascular: no chest pain, no chest pressure, no palpitations and no swelling GI: No nausea, vomiting, or diarrhea Neurologic: No headache, weakness, numbness, tingling, neck stiffness, tremor, vertigo, memory loss, syncope. 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 Has a son who had bladder cancer, was treated and is doing fine right now. 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/2009 - NEVUS BACK///BENIGN ANGELIQUE SKIN TRUNK 01/24/2008 - Obesity, unspecified - Other chronic dermatitis due to solar radiation 01/24/2008 - Other seborrheic keratosis 01/24/2008 - Panic disorder without agoraphobia - Personal history of malignant melanoma of skin 10/26/2005 - Reflux esophagitis - Scar condition and fibrosis of skin 01/24/2008 - SOLAR LENGINES///DYSCHROMIA OTHER 01/24/2008 PAST SURGICAL HISTORY Procedure Laterality Date - COLONOSCOP W/ OR W/O BRSH SPEC 11/17/2013 Colonoscopy - CRANIOTOMY TEMPORL LOBECTOMY 03/07/2015 acoustic neuroma removal - CT BRAIN WITHOUT CONTRAST 03/07/2015 normal - PAST SURGICAL HISTORY OF 06/02 catarract /rt. eye - PAST SURGICAL HISTORY OF 1999 catraract /lt. eye - PAST SURGICAL HISTORY OF 06/2007 remove tumor=acoustic neuroma - REMOVAL GALLBLADDER 1987 Cholecystectomy (open) ALLERGIES Environmental [Other] MEDICATIONS Melatonin 5 mg cap Take by mouth. pravastatin (PRAVACHOL) 10 mg tablet TAKE ONE TABLET BY MOUTH ONCE DAILY busPIRone (BUSPAR) 5 mg tablet Take 1 tablet by mouth three times daily. omeprazole (PRILOSEC) 20 mg capsule Take 1 capsule by mouth once daily. lisinopril (ZESTRIL, PRINIVIL) 20 mg tablet Take 1 tablet by mouth once daily. loratadine (CLARITIN) 10 mg tablet Take 1 tablet by mouth once daily. Aspirin 81 mg Tab Take 1 tablet by mouth once daily. Take with food. FOLIC ACID 800 MCG TAB Take one(1) tablet daily. calcium citrate/vitamin d3(CITRACAL + D 315 MG-200 UNIT TAB) take one daily THERAPEUTIC MULTIVITAMIN TAB Take one(1) tablet daily. albuterol (PROVENTIL) 2.5 mg /3 mL (0.083 %) nebulizer solution Use 3 mL via nebulizer one time only for 1 dose. Use over 5-15minutes. azithromycin (ZITHROMAX) 250 mg tablet Take 1 tablet by mouth once daily. clotrimazole (LOTRIMIN, CLOTRIM) 1 % cream Apply 1 application to affected area twice daily. Under the breast area albuterol HFA (PROAIR HFA) 90 mcg/actuation inhaler Inhale 2 Puffs as instructed every 6 hours as needed for Wheezing/Shortness of Breath. FAMILY HISTORY Problem Relation Age of Onset - HEART DISEASE [Other] [OTHER] Father - KIDNEY STONES [Other] [OTHER] Mother - BLADDER CANCER [Other] [OTHER] Son - Diabetes Mother age 70's - Heart Father - Heart Brother - Heart Paternal Grandfather - high cholesterol [Other] [OTHER] Mother - Seizures Sister - Headache Son migraines - Diabetes Brother starting age 50's - Colon Cancer Other none Social History Substance Use Topics - Smoking status: Never Smoker - Smokeless tobacco: Never Used - Alcohol use No PHYSICAL EXAM BP 118/82 Pulse 68 Temp 37.1 ?C (98.7 ?F) (Temporal Artery) Resp 14 Wt 117.9 kg (260 lb) SpO2 97% BMI 39.83 kg/m? General Appearance: well appearing, in no acute distress, alert Head: normocephalic, atraumatic Eyes: conjunctiva pink and moist, no icterus, sclera white, non-injected Lungs: Lungs clear to auscultation, slightly diminished in the bases. No wheezing, rhonchi, rales Heart: RRR without murmur, gallop, or rubs. No ectopy Bilateral Lower Extremities: No deformities, edema, skin discoloration, clubbing or cyanosis. BONE DENSITY due on 10/30/2016 ADULT PREVNAR-13 due on 10/30/2016 PNEUMOVAX AGE 65 AND OVER WITH 5YR LOOKBACK(1) due on 10/30/2016 MAMMOGRAM due on 05/01/2017 DTAP,TDAP,TD(2 - Td) due on 09/01/2018 COLORECTAL CANCER SCREENING,SEE MODIFIER due on 11/17/2018 DIABETES SCREEN due on 04/02/2020 LIPID SCREEN due on 04/02/2022 INFLUENZA Completed HEPATITIS C SCREENING Completed ASSESSMENT/PLAN: 1. SOB (shortness of breath) - ICD9: 786.05, ICD10: R06.02 (primary diagnosis) - Worsening with exertion. No acute or concerning exam findings this visit - Recommend use of albuterol inhaler for SOB/Wheezing. Discussed use frequency and red flag signs/symptoms and when to seek immediate medical attention - ALBUTEROL SULFATE HFA 90 MCG/ACTUATION AEROSOL INHALER - LUNG VOLUMES - Follow up at previously scheduled appointment next month, sooner for new or worsening symptoms 2. Chronic bronchitis, unspecified chronic bronchitis type (HCC) - ICD9: 491.9, ICD10: J42 Plan as above, see #1 - ALBUTEROL SULFATE HFA 90 MCG/ACTUATION AEROSOL INHALER - LUNG VOLUMES Claudia Ren, COLD ME[employer]OOK.CALVIN Prescription instructions reviewed with patient as applicable. Potential red flag symptoms discussed with the patient. Reviewed appropriate action plan to take if red flag symptoms occur. Patient agreeable to treatment plan. Referring Provider: SELF [[id number]] Allergies As of Date: 09/01/2017 Noted Allergy Reaction environmental [Other] 08/11/2005 Comments: stuffy nose, itchy eyes Date Reviewed: 09/01/2017 Reviewed by: Delta Dominguez Ma - Fully Assessed Reason for Visit: ED Follow-up [821] Cmt: chest pain/ SOB Primary Visit Diagnosis:SOB (shortness of breath) [R06.02] Comment:worsening Other Visit Diagnosis:Chronic bronchitis, unspecified chronic bronchitis type (HCC) [J42] Order(s):albuterol HFA (PROAIR HFA) 90 mcg/actuation inhalerInhale 2 Puffs as instructed every 4 hours as needed for Wheezing/Shortness of Breath.Disp: 1 InhalerRfl: 5 LUNG VOLUMES [[id number]] Order #: [id number] FUTURE Prescriptions as of 09/01/2017 Sig: MELATONIN 5 MG CAPSULE Take by mouth. PRAVASTATIN 10 MG TABLET TAKE ONE TABLET BY MOUTH ONCE* BUSPIRONE 5 MG TABLET Take 1 tablet by mouth three * OMEPRAZOLE 20 MG CAPSULE,VERA* Take 1 capsule by mouth once * LISINOPRIL 20 MG TABLET Take 1 tablet by mouth once d* LORATADINE 10 MG TABLET Take 1 tablet by mouth once d* ASPIRIN 81 MG TABLET Take 1 tablet by mouth once d* FOLIC ACID 800 MCG TABLET Take one(1) tablet daily. CITRACAL PLUS D 315 MG-200 UN* take one daily THERAPEUTIC MULTIVITAMIN TABL* Take one(1) tablet daily. ALBUTEROL SULFATE HFA 90 MCG/* Inhale 2 Puffs as instructed * CLOTRIMAZOLE 1 % TOPICAL CREAM Apply 1 application to affect* Patient not taking: Reported on 09/01/2017 Problem List As Of Date 09/01/2017 Noted Resolved GERD (gastroesophageal reflux disease) [K21.9] INVALID FOR* Priority: A More... Obesity, unspecified [E66.9] INVALID FOR* Priority: B More... Allergic Rhinitis, Cause Unspecified [J30.9] INVALID FOR* Priority: A Personal history of malignant melanoma of skin *INVALID FOR*12/03/2016 Essential hypertension, benign [I10] INVALID FOR* Priority: A More... 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 Routine gynecological examination [Z01.419] INVALID FOR*09/30/2011 Class: Chronic More... Hyperlipidemia, mixed [E78.2] INVALID FOR* Priority: A More... More... Mucous polyp of cervix [N84.1] INVALID FOR*04/19/2013 More... Panic attack [F41.0] INVALID FOR* More... Insomnia [G47.00] INVALID FOR* More... Vitamin D deficiency [E55.9] INVALID FOR* More... Acoustic neuroma (HCC) [D33.3] INVALID FOR* More... Anxiety neurosis [F41.1] INVALID FOR* More... Kidney stones [N20.0] INVALID FOR* More... Prescriptions ordered this encounter Disp Refills Start End ALBUTEROL SULFATE HFA 90 MCG/ACTUATI* 1 In* 5 09/01/2017 Route: INHALATION Sig: Inhale 2 Puffs as instructed every 4 hours as needed for Wheezing/Shortness of Breath. Medications Discontinued During This Encounter azithromycin (ZITHROMAX) 250 mg tabl* 1 Pa* 0 06/25/2017 09/01/2017 Class: Print RX Cmt: Take 2 pills on day 1 Day 2-5 take 1 pill per day Route: ORAL Sig: Take 1 tablet by mouth once daily. Patient not taking: Reported on 09/01/2017 Disc: Reason for discontinue is not on file. albuterol (PROVENTIL) 2.5 mg /3 mL (* 3 mL 0 06/25/2017 09/01/2017 Class: In Office Route: NEBULIZATION -UNSPEC Sig: Use 3 mL via nebulizer one time only for 1 dose. Use over 5-15minutes. Disc: Reason for discontinue is not on file. albuterol HFA (PROAIR HFA) 90 mcg/ac* 1 In* 0 08/13/2015 09/01/2017 Route: INHALATION Sig: Inhale 2 Puffs as instructed every 6 hours as needed for Wheezing/Shortness of Breath. Patient not taking: Reported on 09/01/2017 Disc: Reason for discontinue is not on file. Encounter Status:Closed by CLAUDIA WOLFF CNP on 09/01/17 12 LEAD ELECTROCARDIOGRAM Observed: 08/28/2017 Status: F Source: [place] 3:06 PM [facility] REPOSITORY [facility] Cardiovascular Services [address] [place] [address] 12 Lead EKG 08/25/17 0513 MR#: [id number] Acct: [id number] Name: NICHOLE HERRERA Rep #: [id number] : 1950 66 From: Brooks Pacheco MD Attending Dr: Jose Huntley DO Status: DIS RITO Ordering Dr: Jose Huntley DO Date: 08/25/17 Location: ICU Sex: F C Admitted: 08/24/17 Test Reason : AM EKG Blood Pressure : / mmHG Vent. Rate : 065 BPM Atrial Rate : 065 BPM P-R Int : 164 ms QRS Dur : 078 ms QT Int : 442 ms P-R-T Axes : 049 -03 -01 degrees QTc Int : 459 ms Normal sinus rhythm Normal ECG Confirmed by BROOKS PACHECO MD ([id number]), design editor CARMINE GROSS ([id number]) on 08/28/2017 3:05:54 PM Referred By: BAN Confirmed By:BROOKS PACHECO MD 08/28/17 1505 Date Brooks Pacheco MD CC: Maryam Arevalo MD; Jose Huntley DO Signed 12 LEAD ELECTROCARDIOGRAM Observed: 08/26/2017 Status: F Source: [place] 6:10 PM [facility] REPOSITORY [facility] Cardiovascular Services [address] [place] [address] 12 Lead EKG 08/24/17 1200 MR#: [id number] Acct: [id number] Name: NICHOLE HERRERA Rep #: [id number] : 1950 66 From: Tejas Aguiar MD Attending Dr: Jose Huntley DO Status: DIS RITO Ordering Dr: Anthony Kong MD Date: 08/24/17 Location: ICU Sex: F C Admitted: 08/24/17 Test Reason : CP Blood Pressure : / mmHG Vent. Rate : 062 BPM Atrial Rate : 062 BPM P-R Int : 164 ms QRS Dur : 088 ms QT Int : 436 ms P-R-T Axes : 033 001 007 degrees QTc Int : 442 ms Normal sinus rhythm Inferior CA, age undetermined, cannot be excluded Confirmed by STEFANIA PUTNAM, TEJAS ([id number]), design editor CARMINE GROSS ([id number]) on 08/26/2017 9:05:50 AM Referred By: VIRGEN Confirmed By:TEJAS AGUIAR MD 08/26/17 0905 Date Tejas Aguiar MD CC: Maryam Arevalo MD; Jose Huntley DO; Anthony Kong MD Signed DISCHARGE SUMMARY Observed: 08/25/2017 Status: F Source: [place] 12:44 PM [facility] REPOSITORY [facility] Medical Records Department [address] [place] [id number] Discharge Summary 08/25/17 1243 MR#: [id number] Acct: [id number] Name: NICHOLE HERRERA Rep #: [id number] : 1950 66 From: Jose Huntley DO PCP: Maryam Arevalo MD Status: ADM RITO Y Location: ICU [id number] Discharge Date and Diagnosis - Problem List Patient Problems: Active and Suspected Problems Chest pain (Acute) Date of Admission: 08/24/17 Date of Discharge: 08/25/17 - Primary Discharge Diagnosis Active and Suspected Problems Chest pain (Acute) - Secondary Discharge Diagnosis Chronic Problems COPD (chronic obstructive pulmonary disease) (Chronic) HTN (hypertension) (Chronic) Hyperlipidemia (Chronic) Hospital Course and Treatment Imaging Results: 08/25/17 05:55 Nuclear Stress Test - Chemical [NM] AM (NON MEDS) Clinical Impression(s) from Imaging Studies Chest X-Ray 08/24/17 11:30 IMPRESSION: Degenerative changes, as described above. No demonstrated acute cardiopulmonary process. Electronically Signed: Hill Hidalgo MD at 11:40 EDT , Service support , Operations: None, - - left perc nephrostolithotomy Procedures: Stress test Summary of Care Provided: The patient is a 66 year old F presents with chest pain. Patient had a heart score of 4 and a GAMALIEL score of 2. Patient underwent a nuclear stress test today that was unremarkable. Patient's cardiac workup has been unremarkable for her chest pain. Patient will be discharged home today. [] Discharge Diet: No Restrictions Discharge Activity: Return to Normal Activity Call your doctor if you observe: Fever of 101 or Higher, Shortness of breath, Chest pain Home Medications: Medications to take at Discharge Lisinopril [Zestril] 20 mg PO DAILY 08/24/17 Omeprazole [Prilosec] 20 mg PO DAILY 08/24/17 Pravastatin Sodium [Pravachol] 10 mg PO DAILY 08/24/17 busPIRone [Buspar] 5 mg PO BID 08/24/17 Primary Care Physician: Maryam Arevalo MD [Primary Care Provider] - Within 1 Week Patient Instructions: ED Chest Pain NonCardiac Disposition: Home Minutes spent on discharge:: 26 Patient Condition:: Good Medical Necessity - Tobacco Use Smoking Status: Never smoker Tobacco Use: Non-smoker Meaningful Use Info Meaningful Use Diagnoses (Choose all that apply): None applicable Code Visit OBSV E AND M: 33266 Observation care discharge 08/25/17 1244 <Electronically signed by Jose Huntley DO> Date Jose Corderoignkimmy Signature (if applicable): Date CC: Maryam Arevalo MD; Jose Huntley DO Signed DISCHARGE INSTRUCTION Observed: 08/25/2017 Status: F Source: [place] 12:42 PM [facility] REPOSITORY [facility] Medical Records Department [address] [place] [address] Instructions for Home/Discharge Instructions 08/25/17 1241 MR#: [id number] Acct: [id number] Name: NICHOLE HERRERA Rep #: [id number] : 1950 66 From: Jose Huntley DO PCP: Maryam Arevalo MD Status: ADM RITO - Discharge Diagnoses Current Active Problems: Current Active and Chronic Problems Chest pain (Acute) COPD (chronic obstructive pulmonary disease) (Chronic) HTN (hypertension) (Chronic) Hyperlipidemia (Chronic) You will use the following diet at home:: No restrictions Your food should be the consistency of: Regular Your liquids should be the consistency of: Regular/Thin Discharge Activity: Return to Normal Activity Call your doctor if you observe: Fever of 101 or Higher, Shortness of breath, Chest pain Instructions: ED Chest Pain NonCardiac Allergies/Adverse Reactions: Allergies No Known Allergies Allergy (Verified 02/09/17 22:14) Medications to take at Discharge Lisinopril [Zestril] 20 mg PO DAILY 08/24/17 Omeprazole [Prilosec] 20 mg PO DAILY 08/24/17 Pravastatin Sodium [Pravachol] 10 mg PO DAILY 08/24/17 busPIRone [Buspar] 5 mg PO BID 08/24/17 Primary Care Physician: Maryam Arevalo MD [Primary Care Provider] - Within 1 Week Proposed Discharge Date: 08/25/17 08/25/17 1242 <Electronically signed by Jose Huntley DO> Date Jose Huntley DO CC: Maryam Arevalo MD STRESS REPORT Observed: 08/25/2017 Status: F Source: [place] 12:07 PM [facility] REPOSITORY [facility] Cardiovascular Services [address] [place] [address] MR#: [id number] Acct: [id number] Name: NICHOLE HERRERA Rep #: [id number] : 1950 66 From: Tejas Aguiar MD Primary Care: Maryam Arevalo MD Status: ADM RITO Ordering Dr: Sex: F C Stress Test Report Date: 08/25/2017 Procedure: Pharmacologic stress nuclear imaging study Indications: Chest pain Consent: Per the patient Procedure: The patient underwent pharmacologic (Regadenoson) evaluation with a peak heart rate of 117 beats per minute (75 predicted maximal heart rate) and a peak blood pressure of 180/90 mmHg. The baseline ECG demonstrated normal sinus rhythm. The peak pharmacologic ECG demonstrated no obvious ECG changes. There were no cardiac dysrhythmias pretest, during pharmacologic infusion, or recovery. There was no complaint of chest discomfort during pharmacologic infusion or recovery. The examination was discontinued secondary to completion of protocol. Impression: 1. Pharmacologic (Regadenoson) evaluation 2. Peak pharmacologic ECG with no obvious ECG changes. 3. No cardiac dysrhythmias pretest, during pharmacologic infusion, or recovery 4. Nuclear images pending Myocardial perfusion imaging study: Technique: The patient was injected with 14.2 millicuries of technetium 99m Cardiolite and subsequently rest SPECT Cardiolite nuclear imaging was obtained in the horizontal long, vertical long, and short axis views. The patient underwent pharmacologic (Regadenoson) evaluation with a peak heart rate of 117 beats per minute (75 % percent predicted maximal heart rate) and a peak blood pressure of 180/90 mmHg. The patient was injected with 44.8 millicuries of technetium 99m Cardiolite and subsequently stress SPECT Cardiolite nuclear imaging was obtained in the horizontal long, vertical long, and short axis views. A gated Cardiolite study at peak stress was obtained. Interpretation: Rest and stress SPECT Cardiolite nuclear imaging status post realignment, normalization, and attenuation correction demonstrate relative uniform tracer uptake and myocardial perfusion appearing within normal limits. There is end systolic thickening and brightening. The gated Cardiolite study demonstrates myocardial thickening and inward wall motion. The reported LVEF is 89%. Impression: 1. Rest and stress SPECT Cardiolite nuclear imaging demonstrate relative uniform tracer uptake and myocardial perfusion appearing within normal limits. 2. The gated Cardiolite study reports an LVEF of 89 %. This note was generated with [employer] software. It may contain incorrect words, spelling, and punctuation that were not noted in checking the note before signing. 08/25/171206 <Electronically signed by Tejas Aguiar MD> Date Tejas Aguiar MD CC: Maryam Arevalo MD; Jose Huntley DO Date Dictated: 08/25/171203 Date Transcribed: 08/25/171203 Notching Press Operator: PM Signed CBC W/DIFF, AUTOMATED Collected: 08/25/2017 Status: F Source: [place] 4:25 AM [facility] REPOSITORY TYPE CODE TESTS RESULT OUT OF RANGE REFERENCE UNITS LAB L100.1000 4.4-11.0 K/mm3 Normal WBC 6.1 LAB L100.1200 4.2-5.4 M/mm3 Normal RBC 4.26 LAB L100.1300 12.0-15.0 g/dl Normal HGB 12.4 LAB L100.1400 37-47 % Normal HCT 39.0 LAB L100.1500 81-99 fL Normal MCV 91.5 LAB L100.1600 27.0-32.0 pg Normal MCH 29.1 LAB L100.1700 32-36 g/gl Low MCHC 31.8 LAB L100.1810 11.6-14.6 % High RDW CV 16.0 LAB L100.1820 35.1-43.9 fl High RDW SD 52.4 LAB L100.1900 150-450 K/mm3 Normal PLT 235 LAB L100.2000 6.2-12.0 fl Normal MPV 11.0 LAB L100.2100 47-70 % Normal NEUT% 53.8 LAB L100.2200 19-41 % Normal LY% 35.4 LAB L100.2300 0-10 % Normal MONO% 6.8 LAB L100.2400 0-5 % Normal EO% 3.5 LAB L100.2500 0-1 % Normal BASO% 0.3 LAB L100.2550 0.0-0.9 % Normal IM GRAN % 0.200 Result Comment: IG% - Immature Granulocytes (promyelocytes, myelocytes and metamyelocytes) > 1% indicates that a LEFT SHIFT is Present. LAB L100.2620 2.0-7.7 X10 3/uL Normal Absolute Neut 3.3 LAB L100.2720 0.83-4.51 X10 3/ul Normal Absolute Lymph 2.14 Performed By: #### L100.0100, L300.3900, L300.4310 #### [facility] [address] [place], [address] PROTHROMBIN TIME W/INR Collected: 08/25/2017 Status: F Source: [place] 4:25 AM [facility] REPOSITORY TYPE CODE TESTS RESULT OUT OF RANGE REFERENCE UNITS LAB L300.4150 11.7-14.9 SECONDS Normal PROTIME 13.4 LAB L300.4200 Normal INR 1.0 Performed By: #### L100.0100, L300.3900, L300.4310 #### [facility] [address] [facility] [place], [place], [id number] PARTIAL THROMBOPLAST Collected: 08/25/2017 Status: F Source: [place] TIME 4:25 AM [facility] REPOSITORY TYPE CODE TESTS RESULT OUT OF RANGE REFERENCE UNITS LAB L300.4310 24.1-36.2 Seconds Normal PTT 25.0 Performed By: #### L100.0100, L300.3900, L300.4310 #### [facility] [address] [facility] [place], [address] BASIC METABOLIC Collected: 08/25/2017 Status: F Source: [place] PROFILE (BMP) 4:25 AM [facility] REPOSITORY TYPE CODE TESTS RESULT OUT OF RANGE REFERENCE UNITS LAB L501.0100 74-106 mg/dL Normal GLU 89 Result Comment: Please note revised GLUCOSE reference range effective 2017. LAB L501.1000 7-18 mg/dL Normal BUN 15 LAB L501.1100 0.55-1.02 mg/dL Normal CREAT,SERUM 0.78 Result Comment: The validity of the calculated GFR AND GFRAA in patients over 70 years has not been determined. Clinical correlation is essential. LAB L501.1110 >60 mL/min Normal EST GFR 79 Result Comment: Non- GFR Calc LAB L501.1115 >60 mL/min Normal EST GFR - AA 96 Result Comment: GFR Calc LAB L501.1255 ml/min Normal Estimated CRCL 72.54 LAB L501.1300 10-20 RATIO Normal BUN/CRE 19.3 LAB L501.2200 8.5-10 mg/dL Normal .1 CA 8.6 LAB L501.5300 136-14 mmol/L Normal 5 NA 142 LAB L501.5600 3.5-5. mmol/L Normal 1 K 4.3 LAB L501.5900 98-107 mmol/L Normal CL 107 LAB L501.6100 21.0-3 mmol/L Normal 2.0 CO2 30.0 LAB L501.6200 5-15 Normal GAP 5 Performed By: #### L500.2500 #### [facility] [address] [place], [place], [address] LIPID PROFILE Collected: 08/25/2017 Status: F Source: [place] 4:25 AM [facility] REPOSITORY TYPE CODE TESTS RESULT OUT OF RANGE REFERENCE UNITS LAB L501.4900 200 mg/dL High CHOL 208 Result Comment: <200 mg/dL Desirable 200-240 mg/dL Borderline >240 mg/dL High Risk LAB L501.5000 mg/dL Normal TRIG 76 Result Comment: The drugs N-Acetylcysteine and Metamizole may falsely depress this assay. Serum Triglycerides Reference Interval Normal <150 mg/dL Borderline high 150 - 199 mg/dL High 200 - 499 mg/dL Very High > or = 500 mg/dL LAB L501.6400 mg/dL Normal HDL 70 Result Comment: The drugs N-Acetylcysteine and Metamizole may falsely depress this assay. Reference Range HDL <40 mg/dL Low HDL Cholesterol HDL >or= 60 mg/dL High HDL Cholesterol LAB L501.6500 0-130 mg/dL Normal LDL 123 LAB L501.6600 5-40 mg/dL Normal VLDL 15 Performed By: #### L500.4100 #### [facility] [address] [place], [place], [id number] TROPONIN-I Collected: 08/24/2017 Status: F Source: [place] 5:30 PM [facility] REPOSITORY Order Comment: 'TROP' Serial specimen #1, #2, #3, or #4: 2 TYPE CODE TESTS RESULT OUT OF RANGE REFERENCE UNITS LAB L501.4010 <0.06 ng/mL Normal < 0.02 TROPONIN-I Result Comment: TROPONIN-I EXPECTED VALUES <0.05 NEGATIVE 0.06 - 0.59 AT RISK OF CA > OR = 0.60 SUGGEST CA Performed By: #### L501.4010 #### [facility] [address] [place], [address] HISTORY AND PHYSICAL Observed: 08/24/2017 Status: F Source: [place] EXAM 3:30 PM [facility] REPOSITORY [facility] Medical Records Department [address] [place] [address] History and Physical 08/24/17 1522 MR#: [id number] Acct: [id number] Name: NICHOLE HERRERA Rep #: [id number] : 1950 66 From: Jose Huntley DO PCP: Maryam Arevalo MD Status: ADM RITO Y Location: ICU [id number] Problem List (1) Chest pain Status: Acute (2) COPD (chronic obstructive pulmonary disease) Status: Chronic (3) HTN (hypertension) Status: Chronic (4) Hyperlipidemia Status: Chronic History of Present Illness Date of Admission: 08/24/17 Chief Complaint: chest pain. WHITE. The patient is a 66 year old F presents with chest pain and WHITE. Has been ongoing for sometime. Improved when rests. Never had this before. Presented to ED for evaluation. Work up in ED was negative. no other constitutional symptoms with this.[] Past Medical History Past Medical History (Chronic Problems): Chronic Problems COPD (chronic obstructive pulmonary disease) (Chronic) HTN (hypertension) (Chronic) Hyperlipidemia (Chronic) Allergies No Known Allergies Allergy (Verified 02/09/17 22:14) Home Medications: Ambulatory Orders Medication Instructions Recorded Psychiatric History: No pertinent psych hx Lives: With Family Smoking Status: Never smoker Tobacco Use: Non-smoker Alcohol: None Drugs: None - *Family History Sibling History Items: Heart Disease Review of Systems Constitutional: Denies: Chills, Fever, Weight Change Eyes: Denies: Blurred vision, Double vision HEENT: Denies: Head Aches, Sinus Congestion, Sinus Drainage Cardiovascular: Reports: Chest Pain. Denies: Edema Respiratory: Reports: Shortness of breath upon exertion. Denies: Cough Gastrointestinal: Denies: Abdominal Pain, Nausea, Vomiting Genitourinary: Denies: Dysuria Musculoskeletal: Denies: Joint Pain, Joint Tenderness Skin: Denies: Rash, Wounds Neurological: Denies: Numbness, Tingling, Focal weakness Psychiatric: Denies: Anxiety, Depression Endocrine: Reports: Change in Body Habitus Hematologic/ Lymphatic: Denies: Easy Bruising, Easy Bleeding, Hx of blood clot VTE Information - Inpt Only VTE Present on Admission: No VTE Pharm Prophylaxis ordered?: Yes Patient Problems: Active and Suspected Problems Chest pain (Acute) - Physical Exam General: Alert, Cooperative, No apparent distress HEENT: Atraumatic, Normocephalic Neck: No Nodes, Thyroid Normal Size and Texture Lungs: Clear to auscultation, Normal air movement, No rhonchi, No wheeze Cardiovascular: Regular rate, Regular Rhythm, Normal S1, Normal S2, No murmurs Abdomen: Bowel Sounds Present, Soft, Non Tender Extremities: No edema, No Calf Tenderness Skin: No rashes, No breakdown Psych/Mental Status: Normal Affect, Appropriate Vital Signs Temp Pulse Resp BP Pulse Ox 36.7 C 61 15 156/75 H 98 08/24/17 11:05 08/24/17 12:43 08/24/17 11:36 08/24/17 11:36 08/24/17 11:36 Weight: 116.845 kg Body Mass Index (BMI) 39.2 Laboratory Tests Past 24 Hrs Troponin I < 0.02 Assessment/Plan Active and Suspected Problems Chest pain (Acute) 1. Chest pain * concern for cardiac etiology * Heart score 4. GAMALIEL 2 * ASA * chemical nuclear stress in AM 2. DVT proph * LMWH Code Visit OBSV E AND M: [id number] Initial observation care L2 08/24/17 1530 <Electronically signed by Jose Huntley DO> Date Jose Huntley DO Cosigner Signature: Date (if applicable) CC: Maryam Arevalo MD; Jose Huntley DO Signed TROPONIN-I Collected: 08/24/2017 Status: F Source: LADD 2:20 PM [facility] REPOSITORY Order Comment: 'TROP' Serial specimen #1, #2, #3, or #4: 2 TYPE CODE TESTS RESULT OUT OF RANGE REFERENCE UNITS LAB L501.4010 <0.06 ng/mL Normal < 0.02 TROPONIN-I Result Comment: TROPONIN-I EXPECTED VALUES <0.05 NEGATIVE 0.06 - 0.59 AT RISK OF CA > OR = 0.60 SUGGEST CA Performed By: #### L501.4010 #### [facility] [address] [place], [address] EMERGENCY DEPARTMENT Observed: 08/24/2017 Status: F Source: LADD SUMMARY 12:08 PM [facility] REPOSITORY [facility] Medical Records Department [address] [place] [address] Emergency Department Summary 08/24/17 1204 MR#: [id number] Acct: [id number] Name: NICHOLE HERRERA Rep #: [id number] : 1950 66 From: Anthony Kong MD PCP: Maryam Arevalo MD Status: REG ER - ER Visit Summary Date of Service: 08/24/17 Chief Complaint: Shortness of breath History of Present Illness: The patient is a 66 F who presents with shortness of breath. This is been present for the past 4 days. It is worsened with exertion. She reports chronic cough was unchanged. She has a history of COPD but no change in cough or sputum. The planes of some mild head congestion but really no other recent illness. She also complains of some chest pressure and heaviness. This can last anywhere between 10 and 60 minutes. There is a family history of coronary artery disease and sibling had an CA in his 40s. Physical Examination: Blood pressure 172/98 vitals otherwise normal Moist mucous membranes Heart regular rate and rhythm Lungs are clear no rales rhonchi or wheezing no increased work of breathing Abdomen soft and nontender 2+ radial pulses Extremities nontender Alert Test Results: EKG shows normal sinus rhythm at a rate of 62. CBC BMP troponin all normal. Chest x-ray normal. Emergency Department Course and Treatment: She was given aspirin. Her physical exam and history are suggestive of possible cardiac ischemia or angina. She does not have change in cough or sputum or increased wheezing in her lungs were completely clear. She does report dyspnea on exertion. Her GAMALIEL risk score is 2 and her heart score is 5. Do feel she will need repeat cardiac enzymes and stress testing. Patient discussed with the hospitalist and admitted. Treatment Plan: [] Disposition: Admit Impression: Chest pain Dyspnea on exertion This note was generated with [employer] dictation software. It may contain incorrect words, spelling, and punctuation that were not noted in review of the chart prior to signing ED Disposition - Plan for ED Patient: Chief Complaint: Shortness of Breath Referrals: Maryam Arevalo MD [Primary Care Provider] - What to do if you have Problems For any increased pain, shortness of breath, bleeding, nausea or vomiting, chest pain, or any unexpected problems, contact your Primary Care Provider. Call [facility] ([phone]) or report to the closest Emergency Room. Call 911 if necessary. 08/24/17 1208 <Electronically signed by Anthony Kong MD> Date Anthony Kong MD Cosigner Signature (If Indicated): Date CC: Maryam Arevalo MD CHEST PA AND LATERAL Observed: 08/24/2017 Status: F Source: NATALIIA 11:27 AM [facility] REPOSITORY [facility] Imaging Services [address] [place] [id number] Chest PA and Lateral MR#: [id number] Acct: [id number] Name: NICHOLE HERRERA Ronak Rep #: [id number] : 1950 F 66 From: Evelio Hidalgo MD PCP: Maryam Arevalo MD Status: REG ER Study: Chest PA and Lateral Date of Exam: 08/24/17 Exam# [id number] Ordering Dr: Anthony Kong MD STUDY: X-RAY CHEST REASON FOR EXAM: Female, 66 years old. Chest pressure and shortness of breath TECHNIQUE: PA and lateral views of the chest. COMPARISON: None. FINDINGS: EKG leads overlie the chest There are interstitial fibrotic changes of the lungs. There is no demonstrated pleural abnormality. Normal size heart. Normal mediastinum and robert. Normal visualized pulmonary arteries. There is atherosclerotic calcification of the aortic arch with tortuosity. There are diffuse degenerative changes of the visualized thoracic spine. Normal visualized ribs, clavicles, and shoulders. There is no demonstrated abnormality of the visualized soft tissue structures of the upper abdomen. RAD/Chest PA and Lateral IMPRESSION: Degenerative changes, as described above. No demonstrated acute cardiopulmonary process. Electronically Signed: Hill Hidalgo MD at 11:40 EDT , Service support , CC: Maryam Arevalo MD; Anthony Kong MD Notching Press Operator: Signed CBC W/DIFF, AUTOMATED Collected: 08/24/2017 Status: F Source: NATALIIA 11:25 AM [facility] REPOSITORY TYPE CODE TESTS RESULT OUT OF RANGE REFERENCE UNITS LAB L100.1000 4.4-11.0 K/mm3 Normal WBC 5.3 LAB L100.1200 4.2-5.4 M/mm3 Normal RBC 4.34 LAB L100.1300 12.0-15.0 g/dl Normal HGB 12.7 LAB L100.1400 37-47 % Normal HCT 39.8 LAB L100.1500 81-99 fL Normal MCV 91.7 LAB L100.1600 27.0-32.0 pg Normal MCH 29.3 LAB L100.1700 32-36 g/gl Low MCHC 31.9 LAB L100.1810 11.6-14.6 % High RDW CV 15.7 LAB L100.1820 35.1-43.9 fl High RDW SD 51.0 LAB L100.1900 150-450 K/mm3 Normal PLT 237 LAB L100.2000 6.2-12.0 fl Normal MPV 10.4 LAB L100.2100 47-70 % High NEUT% 72.1 LAB L100.2200 19-41 % Normal LY% 21.5 LAB L100.2300 0-10 % Normal MONO% 4.1 LAB L100.2400 0-5 % Normal EO% 1.7 LAB L100.2500 0-1 % Normal BASO% 0.4 LAB L100.2550 0.0-0.9 % Normal IM GRAN % 0.200 Result Comment: IG% - Immature Granulocytes (promyelocytes, myelocytes and metamyelocytes) > 1% indicates that a LEFT SHIFT is Present. LAB L100.2620 2.0-7.7 X10 3/uL Normal Absolute Neut 3.8 LAB L100.2720 0.83-4.51 X10 3/ul Normal Absolute Lymph 1.14 Performed By: #### L100.0100 #### [facility] [address] [place], [address] BASIC METABOLIC Collected: 08/24/2017 Status: F Source: LADD PROFILE ([facility]) 11:25 AM [facility] REPOSITORY Order Comment: 'TROP' Serial specimen #1, #2, #3, or #4: 1 TYPE CODE TESTS RESULT OUT OF RANGE REFERENCE UNITS LAB L501.0100 74-106 mg/dL Normal GLU 103 Result Comment: Fasting Glucose result from 100 to 125 mg/dL suggests IMPAIRED HOMEOSTASIS per A.D.A. criteria. Please note revised GLUCOSE reference range effective 2017. LAB L501.1000 7-18 mg/dL Normal BUN 14 LAB L501.1100 0.55-1.02 mg/dL Normal CREAT,SERUM 0.79 Result Comment: The validity of the calculated GFR AND GFRAA in patients over 70 years has not been determined. Clinical correlation is essential. LAB L501.1110 >60 mL/min Normal EST GFR 77 Result Comment: Non- GFR Calc LAB L501.1115 >60 mL/min Normal EST GFR - AA 93 Result Comment: GFR Calc LAB L501.1255 ml/min Normal Estimated CRCL 71.62 LAB L501.1300 10-20 RATIO Normal BUN/CRE 17.7 LAB L501.2200 8.5-10 mg/dL Normal .1 CA 8.9 LAB L501.5300 136-14 mmol/L Normal 5 NA 138 LAB L501.5600 3.5-5. mmol/L Normal 1 K 3.9 LAB L501.5900 98-107 mmol/L Normal CL 104 LAB L501.6100 21.0-3 mmol/L Normal 2.0 CO2 29.0 LAB L501.6200 5-15 Normal GAP 5 Performed By: #### L500.2500, L501.4010 #### [facility] [address] [facility] [place], [place], [address] TROPONIN-I Collected: 08/24/2017 Status: F Source: LADD 11:25 AM [facility] REPOSITORY Order Comment: 'TROP' Serial specimen #1, #2, #3, or #4: 1 TYPE CODE TESTS RESULT OUT OF RANGE REFERENCE UNITS LAB L501.4010 <0.06 ng/mL Normal < 0.02 TROPONIN-I Result Comment: TROPONIN-I EXPECTED VALUES <0.05 NEGATIVE 0.06 - 0.59 AT RISK OF CA > OR = 0.60 SUGGEST CA Performed By: #### L500.2500, L501.4010 #### [facility] [address] [facility] [place], [place], [address] PROGRESS Observed: 08/24/2017 Status: COMPLETED Source: [place] 9:58 AM [facility] REPOSITORY HNO ID: [id number] Author: Lina Kamara (Frankie Palomino Service: (none) Author Type: Nurse Practitioner Type: Progress Notes Filed: 08/24/2017 10:00 AM Note Text: Pt presents with SOB and intermittent chest pressure. Denies URI symptoms. Concerned for cardiac etiology. Recommended further eval/tx at local ED immediately. Pt denies squad transfer. Family to transport by private car. CNOV Observed: 08/24/2017 Status: COMPLETED Source: [place] 9:45 AM [facility] REPOSITORY Office Visit (WSTR) NICHOLE HERRERA ([id number]) 1950 F Date Time Provider Department 08/24/17 9:45 AM LINA PALOMINO (WELDER AND FITTER) [facility] During your visit today, we recorded the following information about you: Lina Palomino APRN.RADIOLOGY ASST 08/24/2017 10:00 AM Signed Pt presents with SOB and intermittent chest pressure. Denies URI symptoms. Concerned for cardiac etiology. Recommended further eval/tx at local ED immediately. Pt denies squad transfer. Family to transport by private car. Referring Provider: SELF [200] Allergies As of Date: 08/24/2017 Noted Allergy Reaction environmental [Other] 08/11/2005 Comments: stuffy nose, itchy eyes Date Reviewed: 07/06/2017 Reviewed by: Sneha Carranza LPN - Fully Assessed Reason for Visit: Shortness of Breath [227] Primary Visit Diagnosis:SOB (shortness of breath) [R06.02] Prescriptions as of 08/24/2017 Sig: ALBUTEROL SULFATE 2.5 MG/3 ML* Use 3 mL via nebulizer one ti* AZITHROMYCIN 250 MG TABLET Take 1 tablet by mouth once d* PRAVASTATIN 10 MG TABLET TAKE ONE TABLET BY MOUTH ONCE* CLOTRIMAZOLE 1 % TOPICAL CREAM Apply 1 application to affect* BUSPIRONE 5 MG TABLET Take 1 tablet by mouth three * OMEPRAZOLE 20 MG CAPSULE,VERA* Take 1 capsule by mouth once * LISINOPRIL 20 MG TABLET Take 1 tablet by mouth once d* ALBUTEROL SULFATE HFA 90 MCG/* Inhale 2 Puffs as instructed * LORATADINE 10 MG TABLET Take 1 tablet by mouth once d* ASPIRIN 81 MG TABLET Take 1 tablet by mouth once d* FOLIC ACID 800 MCG TABLET Take one(1) tablet daily. CITRACAL PLUS D 315 MG-200 UN* take one daily THERAPEUTIC MULTIVITAMIN TABL* Take one(1) tablet daily. Problem List As Of Date 08/24/2017 Noted Resolved GERD (gastroesophageal reflux disease) [K21.9] INVALID FOR* Priority: A More... Obesity, unspecified [E66.9] INVALID FOR* Priority: B More... Allergic Rhinitis, Cause Unspecified [J30.9] INVALID FOR* Priority: A Personal history of malignant melanoma of skin *INVALID FOR*12/03/2016 Essential hypertension, benign [I10] INVALID FOR* Priority: A More... 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 Routine gynecological examination [Z01.419] INVALID FOR*09/30/2011 Class: Chronic More... Hyperlipidemia, mixed [E78.2] INVALID FOR* Priority: A More... More... Mucous polyp of cervix [N84.1] INVALID FOR*04/19/2013 More... Panic attack [F41.0] INVALID FOR* More... Insomnia [G47.00] INVALID FOR* More... Vitamin D deficiency [E55.9] INVALID FOR* More... Acoustic neuroma (HCC) [D33.3] INVALID FOR* More... Anxiety neurosis [F41.1] INVALID FOR* More... Kidney stones [N20.0] INVALID FOR* More... Disposition: Return if symptoms worsen or fail to improve. Follow-up and Disposition History Recorded Encounter Status:Closed by LINA PALOMINO on 08/24/17 PROGRESS Observed: 07/31/2017 Status: COMPLETED Source: [place] 10:05 AM [facility] REPOSITORY HNO ID: [id number] Author: Magnus Flores Service: (none) Author Type: Psychologist Type: Progress Notes Filed: 07/31/2017 10:19 AM Note Text: [facility] Progress Note Nichole Herrera 07/31/2017 [id number] Provider: Magnsu Flores, PHD CPT Code: 88052 Psychiatric diagnostic evaluation Time: Approximately 50 minutes was spent in therapy. Parties Present: Patient Patient Presentation/Concerns: INITIAL VISIT Pt grew up in [place] as middle of 4 brothers and a sister.. college AA buis/kevin returned and ... 3 sons.. sources of anxiety raising in last several years: Pt close to mother who in 2016 and easily tearful today... Prednisone round and more anxiety since that a bit of a worrier generally PROBLEM: ANXIETY.... PROBLEM: SLEEP... she tends to wake and ruminate educational... may try melatonin and interrupt the learned sense if i'm up i stay up... plan to make lists when morning comes vs ruminate in the night... and keep lights low enough to still be safe Meds... she takes Buspar Pt also has acid reflux and some aches that interrupt sleep PLAN: work on sleep first and see what is left over Mental Status: Mood: variable Affect: mood-congruent Thoughts/Associations:goal directed Suicidal/Homicidal Ideation: None expressed or evidenced Other Observations: None Therapy Focus Self-care and Mood/affect regulation MEDICATIONS: Per medical record: Current Outpatient Prescriptions: albuterol (PROVENTIL) 2.5 mg /3 mL (0.083 %) nebulizer solution Use 3 mL via nebulizer one time only for 1 dose. Use over 5-15minutes. azithromycin (ZITHROMAX) 250 mg tablet Take 1 tablet by mouth once daily. pravastatin (PRAVACHOL) 10 mg tablet TAKE ONE TABLET BY MOUTH ONCE DAILY clotrimazole (LOTRIMIN, CLOTRIM) 1 % cream Apply 1 application to affected area twice daily. Under the breast area busPIRone (BUSPAR) 5 mg tablet Take 1 tablet by mouth three times daily. omeprazole (PRILOSEC) 20 mg capsule Take 1 capsule by mouth once daily. lisinopril (ZESTRIL, PRINIVIL) 20 mg tablet Take 1 tablet by mouth once daily. albuterol HFA (PROAIR HFA) 90 mcg/actuation inhaler Inhale 2 Puffs as instructed every 6 hours as needed for Wheezing/Shortness of Breath. loratadine (CLARITIN) 10 mg tablet Take 1 tablet by mouth once daily. Aspirin 81 mg Tab Take 1 tablet by mouth once daily. Take with food. FOLIC ACID 800 MCG TAB Take one(1) tablet daily. calcium citrate/vitamin d3(CITRACAL + D 315 MG-200 UNIT TAB) take one daily THERAPEUTIC MULTIVITAMIN TAB Take one(1) tablet daily. No current facility-administered medications for this visit. Psychiatric Medication Issues: see med record DIAGNOSIS: [place] I: Anxiety Sleep problem ... staying asleep Bereavement [place] II: deferred [place] III: see med record [place] IV: anxiety multiply caused [place] V: 55 Treatment Modality/Interventions: Cognitive Behavioral Reassurance/Supportive Problem solving Psychoeducation TREATMENT ASSESSMENT/PROGRESS: . Progressing satisfactorily. TREATMENT PLAN/GOALS: Continue in therapy focusing on self- care, affect management and anxiety management. Next appointment: as scheduled Magnus Flores PHD PROGRESS Observed: 07/06/2017 Status: COMPLETED Source: [place] 12:28 PM [facility] REPOSIT[facility] HNO ID: [id number] Author: Rocio (Dust Control Engineer) LORENA Barr Service: (none) Author Type: Nurse Specialist Type: Progress Notes Filed: 07/06/2017 12:50 PM Note Text: OUTPATIENT VISIT DATE July 06, 2017 OUTPATIENT VISIT TYPE ESTABLISHED PRIMARY CARE PHYSICIAN: MARYAM AREVALO MD CHIEF COMPLAINT: Patient presents with: Anxiety History of Present Illness: Nichole Herrera is a 66 year old female who was last seen 06/25/2017 in urgent care. She has been seen in the past for ACTIVE PROBLEM LIST Gerd (Gastroesophageal Reflux Disease) Obesity, Unspecified Allergic Rhinitis, Cause Unspecified Essential Hypertension, Benign Hyperlipidemia, Mixed Panic Attack Insomnia Vitamin D Deficiency Acoustic Neuroma (Hcc) Anxiety Neurosis Kidney Stones Since the last visit, she states that she felt increased anxiety and depression she was sick. She reports taking BuSpar typically once daily, while experiencing bronchitis increased BuSpar to 3 times daily. She reports she has decreased BuSpar down once daily. She does continue to feel a bit depressed and anxious. She notes nasal congestion and frontal headache. Does have history of environmental allergies. No recent hospital or ED visits. No new medical problems or medications. Able to obtain medications. No problems with taking medications or note side effects. 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 Has a son who had bladder cancer, was treated and is doing fine right now. 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/2009 - NEVUS BACK///BENIGN ANGELIQUE SKIN TRUNK 01/24/2008 - Obesity, unspecified - Other chronic dermatitis due to solar radiation 01/24/2008 - Other seborrheic keratosis 01/24/2008 - Panic disorder without agoraphobia - Personal history of malignant melanoma of skin 10/26/2005 - Reflux esophagitis - Scar condition and fibrosis of skin 01/24/2008 - SOLAR LENGINES///DYSCHROMIA OTHER 01/24/2008 PAST SURGICAL HISTORY Procedure Laterality Date - COLONOSCOP W/ OR W/O BRSH SPEC 11/17/2013 Colonoscopy - CRANIOTOMY TEMPORL LOBECTOMY 03/07/2015 acoustic neuroma removal - CT BRAIN WITHOUT CONTRAST 03/07/2015 normal - PAST SURGICAL HISTORY OF 06/02 catarract /rt. eye - PAST SURGICAL HISTORY OF 1999 catraract /lt. eye - PAST SURGICAL HISTORY OF 06/2007 remove tumor=acoustic neuroma - REMOVAL GALLBLADDER 1987 Cholecystectomy (open) FAMILY HISTORY Problem Relation Age of Onset - HEART DISEASE [Other] [OTHER] Father - KIDNEY STONES [Other] [OTHER] Mother - BLADDER CANCER [Other] [OTHER] Son - Diabetes Mother age 70's - Heart Father - Heart Brother - Heart Paternal Grandfather - high cholesterol [Other] [OTHER] Mother - Seizures Sister - Headache Son migraines - Diabetes Brother starting age 50's - Colon Cancer Other none Social History Substance Use Topics - Smoking status: Never Smoker - Smokeless tobacco: Never Used - Alcohol use No ALLERGIES: ALLERGIES Allergen Reactions - Environmental [Othe* stuffy nose, itchy eyes MEDICATIONS albuterol (PROVENTIL) 2.5 mg /3 mL (0.083 %) nebulizer solution Use 3 mL via nebulizer one time only for 1 dose. Use over 5-15minutes. azithromycin (ZITHROMAX) 250 mg tablet Take 1 tablet by mouth once daily. pravastatin (PRAVACHOL) 10 mg tablet TAKE ONE TABLET BY MOUTH ONCE DAILY clotrimazole (LOTRIMIN, CLOTRIM) 1 % cream Apply 1 application to affected area twice daily. Under the breast area busPIRone (BUSPAR) 5 mg tablet Take 1 tablet by mouth three times daily. omeprazole (PRILOSEC) 20 mg capsule Take 1 capsule by mouth once daily. lisinopril (ZESTRIL, PRINIVIL) 20 mg tablet Take 1 tablet by mouth once daily. albuterol HFA (PROAIR HFA) 90 mcg/actuation inhaler Inhale 2 Puffs as instructed every 6 hours as needed for Wheezing/Shortness of Breath. loratadine (CLARITIN) 10 mg tablet Take 1 tablet by mouth once daily. Aspirin 81 mg Tab Take 1 tablet by mouth once daily. Take with food. FOLIC ACID 800 MCG TAB Take one(1) tablet daily. calcium citrate/vitamin d3(CITRACAL + D 315 MG-200 UNIT TAB) take one daily THERAPEUTIC MULTIVITAMIN TAB Take one(1) tablet daily. REVIEW OF SYSTEMS: GENERAL: Negative for: Weight loss or gain, Fever or Chills, Weakness and Sleep difficulties. Physical Examination: BP 136/88 Pulse 72 Resp 16 Wt 254 lb (115.2kg) Extended Vitals not filed for this encounter. General appearance: Well appearing, alert, in no acute distress, well-hydrated, well nourished. Skin: Skin color, texture, turgor normal, no suspicious rashes or lesions Head: Normocephalic, no masses, lesions, tenderness or abnormalities Nose/Sinuses: Nares normal, septum midline, mucosa erythmatous, no drainage or sinus tenderness Oropharynx: Lips, mucosa, and tongue normal, teeth and gums normal, oropharynx normal Peripheral pulses: Normal Neuro: Gait normal. Sensation grossly intact. Reviewed chart, outside records, tests I personally interviewed, confirmed and edited the above information if obtained by others. TESTING: Glucose (mg/dL) Date Value 04/02/2017 85 Potassium (mmol/L) Date Value 04/02/2017 4.4 Sodium (mmol/L) Date Value 04/02/2017 143 Chloride (mmol/L) Date Value 04/02/2017 102 CO2 (mmol/L) Date Value 04/02/2017 29 Creatinine (mg/dL) Date Value 04/02/2017 0.86 BUN (mg/dL) Date Value 04/02/2017 16 Anion Gap (mmol/L) Date Value 04/02/2017 12 Calcium (mg/dL) Date Value 04/02/2017 9.5 Glucose (mg/dL) Date Value 04/02/2017 85 Potassium (mmol/L) Date Value 04/02/2017 4.4 Sodium (mmol/L) Date Value 04/02/2017 143 Chloride (mmol/L) Date Value 04/02/2017 102 CO2 (mmol/L) Date Value 04/02/2017 29 Creatinine (mg/dL) Date Value 04/02/2017 0.86 BUN (mg/dL) Date Value 04/02/2017 16 Anion Gap (mmol/L) Date Value 04/02/2017 12 Calcium (mg/dL) Date Value 04/02/2017 9.5 Protein, Total (g/dL) Date Value 08/31/2013 7.0 Albumin (g/dL) Date Value 08/31/2013 4.0 Bilirubin, Total (mg/dL) Date Value 08/31/2013 0.4 Alkaline Phosphatase (U/L) Date Value 08/31/2013 68 AST (U/L) Date Value 08/31/2013 19 ALT (U/L) Date Value 08/31/2013 14 Hemoglobin (g/dL) Date Value 08/31/2013 13.6 Hematocrit (%) Date Value 08/31/2013 42.2 WBC (k/uL) Date Value 08/31/2013 4.54 Cholesterol, Total (mg/dL) Date Value 04/02/2017 243 HDL Cholesterol (mg/dL) Date Value 04/02/2017 80 LDL Cholesterol (mg/dL) Date Value 04/02/2017 149 Triglyceride (mg/dL) Date Value 04/02/2017 72 No results found for: HBA1C Ejection Fraction: No results found IMPRESSION: Ms. Herrera is a 66 year old woman persents for follow-up visit feeling more anxious than her usual baseline. After my examination and review of data, I make the following recommendations. PLAN AND RECOMMENDATIONS: 1. Anxiety - ICD9: 300.00, ICD10: F41.9 (primary diagnosis) Reports feeling anxious during her illness. She was on prednisone which could have contributed to this. She was taking BuSpar 3 times daily has decreased down to once daily. Can increase to 3 times daily as needed. Discussed counseling. She would like to try counseling. There is concern about cost. She will check with her insurance to see what her coverage is. - CONSULT TO PSYCHOLOGY 2. Nasal congestion - ICD9: 478.19, ICD10: R09.81 Recommend resuming saline nasal spray and antihistamine/allergy medicine. She has been taking an OTC from [facility] Schedule appt with Dr. Flores or preferred provider. Schedule follow up with MARYAM AREVALO MD. Advised to go to ER if develops chest pain, shortness of breath, or severe worsening of symptoms. Discussed risks, benefits, alternatives, and potential side effects of medications. Ms. Herrera expressed understanding and agreed with the plan. LORENA Ashley CNOV Observed: 07/06/2017 Status: COMPLETED Source: [place] 12:20 PM [facility] REPOSITORY Office Visit ([facility]) NICHOLE [id number]) 1950 F Date Time Provider Department 07/06/17 12:20 PM ROCIO BARR (LORENA) INTMLIZET During your visit today, we recorded the following information about you: Pulse Respiration Blood pressure Weight 72/minute 16/minute 136/88 115.2 kg LORENA Ashley, LORENA 07/06/2017 12:50 PM Signed OUTPATIENT VISIT DATE July 06, 2017 OUTPATIENT VISIT TYPE ESTABLISHED PRIMARY CARE PHYSICIAN: MARYAM AREVALO MD CHIEF COMPLAINT: Patient presents with: Anxiety History of Present Illness: Nichole Herrera is a 66 year old female who was last seen 06/25/2017 in urgent care. She has been seen in the past for ACTIVE PROBLEM LIST Gerd (Gastroesophageal Reflux Disease) Obesity, Unspecified Allergic Rhinitis, Cause Unspecified Essential Hypertension, Benign Hyperlipidemia, Mixed Panic Attack Insomnia Vitamin D Deficiency Acoustic Neuroma (Hcc) Anxiety Neurosis Kidney Stones Since the last visit, she states that she felt increased anxiety and depression she was sick. She reports taking BuSpar typically once daily, while experiencing bronchitis increased BuSpar to 3 times daily. She reports she has decreased BuSpar down once daily. She does continue to feel a bit depressed and anxious. She notes nasal congestion and frontal headache. Does have history of environmental allergies. No recent hospital or ED visits. No new medical problems or medications. Able to obtain medications. No problems with taking medications or note side effects. 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 Has a son who had bladder cancer, was treated and is doing fine right now. 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/2009 - NEVUS BACK///BENIGN ANGELIQUE SKIN TRUNK 01/24/2008 - Obesity, unspecified - Other chronic dermatitis due to solar radiation 01/24/2008 - Other seborrheic keratosis 01/24/2008 - Panic disorder without agoraphobia - Personal history of malignant melanoma of skin 10/26/2005 - Reflux esophagitis - Scar condition and fibrosis of skin 01/24/2008 - SOLAR LENGINES///DYSCHROMIA OTHER 01/24/2008 PAST SURGICAL HISTORY Procedure Laterality Date - COLONOSCOP W/ OR W/O BRSH SPEC 11/17/2013 Colonoscopy - CRANIOTOMY TEMPORL LOBECTOMY 03/07/2015 acoustic neuroma removal - CT BRAIN WITHOUT CONTRAST 03/07/2015 normal - PAST SURGICAL HISTORY OF 06/02 catarract /rt. eye - PAST SURGICAL HISTORY OF 1999 catraract /lt. eye - PAST SURGICAL HISTORY OF 06/2007 remove tumor=acoustic neuroma - REMOVAL GALLBLADDER 1987 Cholecystectomy (open) FAMILY HISTORY Problem Relation Age of Onset - HEART DISEASE [Other] [OTHER] Father - KIDNEY STONES [Other] [OTHER] Mother - BLADDER CANCER [Other] [OTHER] Son - Diabetes Mother age 70's - Heart Father - Heart Brother - Heart Paternal Grandfather - high cholesterol [Other] [OTHER] Mother - Seizures Sister - Headache Son migraines - Diabetes Brother starting age 50's - Colon Cancer Other none Social History Substance Use Topics - Smoking status: Never Smoker - Smokeless tobacco: Never Used - Alcohol use No ALLERGIES: ALLERGIES Allergen Reactions - Environmental [Othe* stuffy nose, itchy eyes MEDICATIONS albuterol (PROVENTIL) 2.5 mg /3 mL (0.083 %) nebulizer solution Use 3 mL via nebulizer one time only for 1 dose. Use over 5-15minutes. azithromycin (ZITHROMAX) 250 mg tablet Take 1 tablet by mouth once daily. pravastatin (PRAVACHOL) 10 mg tablet TAKE ONE TABLET BY MOUTH ONCE DAILY clotrimazole (LOTRIMIN, CLOTRIM) 1 % cream Apply 1 application to affected area twice daily. Under the breast area busPIRone (BUSPAR) 5 mg tablet Take 1 tablet by mouth three times daily. omeprazole (PRILOSEC) 20 mg capsule Take 1 capsule by mouth once daily. lisinopril (ZESTRIL, PRINIVIL) 20 mg tablet Take 1 tablet by mouth once daily. albuterol HFA (PROAIR HFA) 90 mcg/actuation inhaler Inhale 2 Puffs as instructed every 6 hours as needed for Wheezing/Shortness of Breath. loratadine (CLARITIN) 10 mg tablet Take 1 tablet by mouth once daily. Aspirin 81 mg Tab Take 1 tablet by mouth once daily. Take with food. FOLIC ACID 800 MCG TAB Take one(1) tablet daily. calcium citrate/vitamin d3(CITRACAL + D 315 MG-200 UNIT TAB) take one daily THERAPEUTIC MULTIVITAMIN TAB Take one(1) tablet daily. REVIEW OF SYSTEMS: GENERAL: Negative for: Weight loss or gain, Fever or Chills, Weakness and Sleep difficulties. Physical Examination: BP 136/88 Pulse 72 Resp 16 Wt 254 lb (115.2kg) Extended Vitals not filed for this encounter. General appearance: Well appearing, alert, in no acute distress, well-hydrated, well nourished. Skin: Skin color, texture, turgor normal, no suspicious rashes or lesions Head: Normocephalic, no masses, lesions, tenderness or abnormalities Nose/Sinuses: Nares normal, septum midline, mucosa erythmatous, no drainage or sinus tenderness Oropharynx: Lips, mucosa, and tongue normal, teeth and gums normal, oropharynx normal Peripheral pulses: Normal Neuro: Gait normal. Sensation grossly intact. Reviewed chart, outside records, tests I personally interviewed, confirmed and edited the above information if obtained by others. TESTING: Glucose (mg/dL) Date Value 04/02/2017 85 Potassium (mmol/L) Date Value 04/02/2017 4.4 Sodium (mmol/L) Date Value 04/02/2017 143 Chloride (mmol/L) Date Value 04/02/2017 102 CO2 (mmol/L) Date Value 04/02/2017 29 Creatinine (mg/dL) Date Value 04/02/2017 0.86 BUN (mg/dL) Date Value 04/02/2017 16 Anion Gap (mmol/L) Date Value 04/02/2017 12 Calcium (mg/dL) Date Value 04/02/2017 9.5 Glucose (mg/dL) Date Value 04/02/2017 85 Potassium (mmol/L) Date Value 04/02/2017 4.4 Sodium (mmol/L) Date Value 04/02/2017 143 Chloride (mmol/L) Date Value 04/02/2017 102 CO2 (mmol/L) Date Value 04/02/2017 29 Creatinine (mg/dL) Date Value 04/02/2017 0.86 BUN (mg/dL) Date Value 04/02/2017 16 Anion Gap (mmol/L) Date Value 04/02/2017 12 Calcium (mg/dL) Date Value 04/02/2017 9.5 Protein, Total (g/dL) Date Value 08/31/2013 7.0 Albumin (g/dL) Date Value 08/31/2013 4.0 Bilirubin, Total (mg/dL) Date Value 08/31/2013 0.4 Alkaline Phosphatase (U/L) Date Value 08/31/2013 68 AST (U/L) Date Value 08/31/2013 19 ALT (U/L) Date Value 08/31/2013 14 Hemoglobin (g/dL) Date Value 08/31/2013 13.6 Hematocrit (%) Date Value 08/31/2013 42.2 WBC (k/uL) Date Value 08/31/2013 4.54 Cholesterol, Total (mg/dL) Date Value 04/02/2017 243 HDL Cholesterol (mg/dL) Date Value 04/02/2017 80 LDL Cholesterol (mg/dL) Date Value 04/02/2017 149 Triglyceride (mg/dL) Date Value 04/02/2017 72 No results found for: HBA1C Ejection Fraction: No results found IMPRESSION: Ms. Herrera is a 66 year old woman persents for follow-up visit feeling more anxious than her usual baseline. After my examination and review of data, I make the following recommendations. PLAN AND RECOMMENDATIONS: 1. Anxiety - ICD9: 300.00, ICD10: F41.9 (primary diagnosis) Reports feeling anxious during her illness. She was on prednisone which could have contributed to this. She was taking BuSpar 3 times daily has decreased down to once daily. Can increase to 3 times daily as needed. Discussed counseling. She would like to try counseling. There is concern about cost. She will check with her insurance to see what her coverage is. - CONSULT TO PSYCHOLOGY 2. Nasal congestion - ICD9: 478.19, ICD10: R09.81 Recommend resuming saline nasal spray and antihistamine/allergy medicine. She has been taking an OTC from [facility] Schedule appt with Dr. Flores or preferred provider. Schedule follow up with MARYAM AREVALO MD. Advised to go to ER if develops chest pain, shortness of breath, or severe worsening of symptoms. Discussed risks, benefits, alternatives, and potential side effects of medications. Ms. Herrera expressed understanding and agreed with the plan. LORENA Ashley Referring Provider: SELF [[id number]] Allergies As of Date: 07/06/2017 Noted Allergy Reaction environmental [Other] 08/11/2005 Comments: stuffy nose, itchy eyes Date Reviewed: 07/06/2017 Reviewed by: Sneha Carranza LPN - Fully Assessed Reason for Visit: Anxiety [9] Primary Visit Diagnosis:Anxiety [F41.9] Other Visit Diagnosis:Nasal congestion [R09.81] Order(s):CONSULT TO PSYCHOLOGY [9036] Order #: [id number]: 1 Prescriptions as of 07/06/2017 Sig: ALBUTEROL SULFATE 2.5 MG/3 ML* Use 3 mL via nebulizer one ti* AZITHROMYCIN 250 MG TABLET Take 1 tablet by mouth once d* PRAVASTATIN 10 MG TABLET TAKE ONE TABLET BY MOUTH ONCE* CLOTRIMAZOLE 1 % TOPICAL CREAM Apply 1 application to affect* BUSPIRONE 5 MG TABLET Take 1 tablet by mouth three * OMEPRAZOLE 20 MG CAPSULE,VERA* Take 1 capsule by mouth once * LISINOPRIL 20 MG TABLET Take 1 tablet by mouth once d* ALBUTEROL SULFATE HFA 90 MCG/* Inhale 2 Puffs as instructed * LORATADINE 10 MG TABLET Take 1 tablet by mouth once d* ASPIRIN 81 MG TABLET Take 1 tablet by mouth once d* FOLIC ACID 800 MCG TABLET Take one(1) tablet daily. CITRACAL PLUS D 315 MG-200 UN* take one daily THERAPEUTIC MULTIVITAMIN TABL* Take one(1) tablet daily. Medication notes this encounter AZITHROMYCIN 250 MG TABLET >> Sneha Carranza RAIL ASSEMBLER 07/06/2017 12:27 PM >> SNEHA CARRANZA RAIL ASSEMBLER ThuJul 06, 2017 12:27 PM Finished Problem List As Of Date 07/06/2017 Noted Resolved GERD (gastroesophageal reflux disease) [K21.9] INVALID FOR* Priority: A More... Obesity, unspecified [E66.9] INVALID FOR* Priority: B More... Allergic Rhinitis, Cause Unspecified [J30.9] INVALID FOR* Priority: A Personal history of malignant melanoma of skin *INVALID FOR*12/03/2016 Essential hypertension, benign [I10] INVALID FOR* Priority: A More... 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 Routine gynecological examination [Z01.419] INVALID FOR*09/30/2011 Class: Chronic More... Hyperlipidemia, mixed [E78.2] INVALID FOR* Priority: A More... More... Mucous polyp of cervix [N84.1] INVALID FOR*04/19/2013 More... Panic attack [F41.0] INVALID FOR* More... Insomnia [G47.00] INVALID FOR* More... Vitamin D deficiency [E55.9] INVALID FOR* More... Acoustic neuroma (HCC) [D33.3] INVALID FOR* More... Anxiety neurosis [F41.1] INVALID FOR* More... Kidney stones [N20.0] INVALID FOR* More... Encounter Status:Closed by ROCIO NI on 07/06/17 PROGRESS Observed: 06/25/2017 Status: COMPLETED Source: [place] 1:45 PM [facility] REPOSITORY HNO ID: [id number] Author: Starr (Calvin) Service: (none) Author Type: Nurse Practitioner Type: Progress Notes Filed: 06/25/2017 2:43 PM Note Text: Subjective HPI HPI Nichole Herrera is a 66 year old female who presents today for CC of cough. This started 1 week. Has tried albuterol at home. Symptoms are worsened by nothing specific. Risk factors hx of bronchitis. Intermittent fevers noted. Review of Systems Constitutional: Negative for chills, fever and weight loss. HENT: Positive for congestion. Negative for ear pain, nosebleeds and sore throat. Respiratory: Positive for cough and shortness of breath. Negative for wheezing. Musculoskeletal: Negative for neck pain. Skin: Negative for itching and rash. 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 Has a son who had bladder cancer, was treated and is doing fine right now. 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/2009 - NEVUS BACK///BENIGN ANGELIQUE SKIN TRUNK 01/24/2008 - Obesity, unspecified - Other chronic dermatitis due to solar radiation 01/24/2008 - Other seborrheic keratosis 01/24/2008 - Panic disorder without agoraphobia - Personal history of malignant melanoma of skin 10/26/2005 - Reflux esophagitis - Scar condition and fibrosis of skin 01/24/2008 - SOLAR LENGINES///DYSCHROMIA OTHER 01/24/2008 PAST SURGICAL HISTORY Procedure Laterality Date - COLONOSCOP W/ OR W/O BRSH SPEC 11/17/2013 Colonoscopy - CRANIOTOMY TEMPORL LOBECTOMY 03/07/2015 acoustic neuroma removal - CT BRAIN WITHOUT CONTRAST 03/07/2015 normal - PAST SURGICAL HISTORY OF 06/02 catarract /rt. eye - PAST SURGICAL HISTORY OF 1999 catraract /lt. eye - PAST SURGICAL HISTORY OF 06/2007 remove tumor=acoustic neuroma - REMOVAL GALLBLADDER 1987 Cholecystectomy (open) ALLERGIES Environmental [Other] MEDICATIONS pravastatin (PRAVACHOL) 10 mg tablet TAKE ONE TABLET BY MOUTH ONCE DAILY clotrimazole (LOTRIMIN, CLOTRIM) 1 % cream Apply 1 application to affected area twice daily. Under the breast area busPIRone (BUSPAR) 5 mg tablet Take 1 tablet by mouth three times daily. omeprazole (PRILOSEC) 20 mg capsule Take 1 capsule by mouth once daily. lisinopril (ZESTRIL, PRINIVIL) 20 mg tablet Take 1 tablet by mouth once daily. albuterol HFA (PROAIR HFA) 90 mcg/actuation inhaler Inhale 2 Puffs as instructed every 6 hours as needed for Wheezing/Shortness of Breath. loratadine (CLARITIN) 10 mg tablet Take 1 tablet by mouth once daily. Aspirin 81 mg Tab Take 1 tablet by mouth once daily. Take with food. FOLIC ACID 800 MCG TAB Take one(1) tablet daily. calcium citrate/vitamin d3(CITRACAL + D 315 MG-200 UNIT TAB) take one daily THERAPEUTIC MULTIVITAMIN TAB Take one(1) tablet daily. FAMILY HISTORY Problem Relation Age of Onset - HEART DISEASE [Other] [OTHER] Father - KIDNEY STONES [Other] [OTHER] Mother - BLADDER CANCER [Other] [OTHER] Son - Diabetes Mother age 70's - Heart Father - Heart Brother - Heart Paternal Grandfather - high cholesterol [Other] [OTHER] Mother - Seizures Sister - Headache Son migraines - Diabetes Brother starting age 50's - Colon Cancer Other none Social History Substance Use Topics - Smoking status: Never Smoker - Smokeless tobacco: Never Used - Alcohol use No Blood pressure 128/84, pulse 77, temperature 36.8 ?C (98.3 ?F), temperature source Tympanic, resp. rate 16, weight 115.7 kg (255 lb), SpO2 95 %. Objective Physical Exam Constitutional: She is oriented to person, place, and time and well-developed, well-nourished, and in no distress. Non-toxic appearance. She does not have a sickly appearance. No distress. HENT: Head: Normocephalic and atraumatic. Right Ear: Hearing, tympanic membrane, external ear and ear canal normal. Left Ear: Hearing, tympanic membrane, external ear and ear canal normal. Nose: Nose normal. Mouth/Throat: Uvula is midline, oropharynx is clear and moist and mucous membranes are normal. Eyes: Conjunctivae and lids are normal. Pupils are equal, round, and reactive to light. Right eye exhibits no discharge. Left eye exhibits no discharge. No scleral icterus. Neck: Trachea normal and normal range of motion. Neck supple. Cardiovascular: Normal rate, regular rhythm and normal heart sounds. Pulmonary/Chest: Effort normal. She has wheezes (scattered). She has rhonchi (scattered). Persistent loose cough during exam. After nebulizer treatment - rhonchi cleared, scattered wheezes remained. No improvement in cough. Lymphadenopathy: She has no cervical adenopathy. Neurological: She is alert and oriented to person, place, and time. Skin: No rash noted. She is not diaphoretic. ASSESSMENT/PLAN: 1. Bronchitis - ICD9: 490, ICD10: J40 (primary diagnosis) - Discussed supportive care, given educational handout - Limit exposure to smoke and other inhaled irritants - Discussed possible red flags and when to seek medical attention - Follow up in 3-5 days or sooner if no better or worse -If you experience chest pain/shortness of breath go to ER - PREDNISONE 20 MG TABLET - AZITHROMYCIN 250 MG TABLET 2. Wheeze - ICD9: 786.07, ICD10: R06.2 Improvement noted, though some adventitious sounds remained Prescription instructions reviewed with patient as applicable. Patient advised if symptoms do not improve or if symptoms worsen sooner, to contact the office for further evaluation by their primary care physician. Potential red flag symptoms discussed with the patient. Reviewed appropriate action plan to take if red flag symptoms occur. Patient agreeable to treatment plan. Starr Santoro CNP CNOV Observed: 06/25/2017 Status: COMPLETED Source: [place] 1:30 PM [facility] REPOSITORY [facility] NICHOLE HERRERA ([id number]) 1950 F Date Time Provider Department 06/25/17 1:30 PM STARR SANTORO (CALVIN) [facility] During your visit today, we recorded the following information about you: Temperature Pulse Respiration Blood pressure 98.3 degrees 77/minute 16/minute 128/84 Weight 115.7 kg Starr Santoro CNP 06/25/2017 2:43 PM Signed Subjective HPI HPI Nichole Herrera is a 66 year old female who presents today for CC of cough. This started 1 week. Has tried albuterol at home. Symptoms are worsened by nothing specific. Risk factors hx of bronchitis. Intermittent fevers noted. Review of Systems Constitutional: Negative for chills, fever and weight loss. HENT: Positive for congestion. Negative for ear pain, nosebleeds and sore throat. Respiratory: Positive for cough and shortness of breath. Negative for wheezing. Musculoskeletal: Negative for neck pain. Skin: Negative for itching and rash. 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 Has a son who had bladder cancer, was treated and is doing fine right now. 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/2009 - NEVUS BACK///BENIGN ANGELIQUE SKIN TRUNK 01/24/2008 - Obesity, unspecified - Other chronic dermatitis due to solar radiation 01/24/2008 - Other seborrheic keratosis 01/24/2008 - Panic disorder without agoraphobia - Personal history of malignant melanoma of skin 10/26/2005 - Reflux esophagitis - Scar condition and fibrosis of skin 01/24/2008 - SOLAR LENGINES///DYSCHROMIA OTHER 01/24/2008 PAST SURGICAL HISTORY Procedure Laterality Date - COLONOSCOP W/ OR W/O BRSH SPEC 11/17/2013 Colonoscopy - CRANIOTOMY TEMPORL LOBECTOMY 03/07/2015 acoustic neuroma removal - CT BRAIN WITHOUT CONTRAST 03/07/2015 normal - PAST SURGICAL HISTORY OF 06/02 catarract /rt. eye - PAST SURGICAL HISTORY OF 1999 catraract /lt. eye - PAST SURGICAL HISTORY OF 06/2007 remove tumor=acoustic neuroma - REMOVAL GALLBLADDER 1987 Cholecystectomy (open) ALLERGIES Environmental [Other] MEDICATIONS pravastatin (PRAVACHOL) 10 mg tablet TAKE ONE TABLET BY MOUTH ONCE DAILY clotrimazole (LOTRIMIN, CLOTRIM) 1 % cream Apply 1 application to affected area twice daily. Under the breast area busPIRone (BUSPAR) 5 mg tablet Take 1 tablet by mouth three times daily. omeprazole (PRILOSEC) 20 mg capsule Take 1 capsule by mouth once daily. lisinopril (ZESTRIL, PRINIVIL) 20 mg tablet Take 1 tablet by mouth once daily. albuterol HFA (PROAIR HFA) 90 mcg/actuation inhaler Inhale 2 Puffs as instructed every 6 hours as needed for Wheezing/Shortness of Breath. loratadine (CLARITIN) 10 mg tablet Take 1 tablet by mouth once daily. Aspirin 81 mg Tab Take 1 tablet by mouth once daily. Take with food. FOLIC ACID 800 MCG TAB Take one(1) tablet daily. calcium citrate/vitamin d3(CITRACAL + D 315 MG-200 UNIT TAB) take one daily THERAPEUTIC MULTIVITAMIN TAB Take one(1) tablet daily. FAMILY HISTORY Problem Relation Age of Onset - HEART DISEASE [Other] [OTHER] Father - KIDNEY STONES [Other] [OTHER] Mother - BLADDER CANCER [Other] [OTHER] Son - Diabetes Mother age 70's - Heart Father - Heart Brother - Heart Paternal Grandfather - high cholesterol [Other] [OTHER] Mother - Seizures Sister - Headache Son migraines - Diabetes Brother starting age 50's - Colon Cancer Other none Social History Substance Use Topics - Smoking status: Never Smoker - Smokeless tobacco: Never Used - Alcohol use No Blood pressure 128/84, pulse 77, temperature 36.8 ?C (98.3 ?F), temperature source Tympanic, resp. rate 16, weight 115.7 kg (255 lb), SpO2 95 %. Objective Physical Exam Constitutional: She is oriented to person, place, and time and well-developed, well-nourished, and in no distress. Non-toxic appearance. She does not have a sickly appearance. No distress. HENT: Head: Normocephalic and atraumatic. Right Ear: Hearing, tympanic membrane, external ear and ear canal normal. Left Ear: Hearing, tympanic membrane, external ear and ear canal normal. Nose: Nose normal. Mouth/Throat: Uvula is midline, oropharynx is clear and moist and mucous membranes are normal. Eyes: Conjunctivae and lids are normal. Pupils are equal, round, and reactive to light. Right eye exhibits no discharge. Left eye exhibits no discharge. No scleral icterus. Neck: Trachea normal and normal range of motion. Neck supple. Cardiovascular: Normal rate, regular rhythm and normal heart sounds. Pulmonary/Chest: Effort normal. She has wheezes (scattered). She has rhonchi (scattered). Persistent loose cough during exam. After nebulizer treatment - rhonchi cleared, scattered wheezes remained. No improvement in cough. Lymphadenopathy: She has no cervical adenopathy. Neurological: She is alert and oriented to person, place, and time. Skin: No rash noted. She is not diaphoretic. ASSESSMENT/PLAN: 1. Bronchitis - ICD9: 490, ICD10: J40 (primary diagnosis) - Discussed supportive care, given educational handout - Limit exposure to smoke and other inhaled irritants - Discussed possible red flags and when to seek medical attention - Follow up in 3-5 days or sooner if no better or worse -If you experience chest pain/shortness of breath go to ER - PREDNISONE 20 MG TABLET - AZITHROMYCIN 250 MG TABLET 2. Wheeze - ICD9: 786.07, ICD10: R06.2 Improvement noted, though some adventitious sounds remained Prescription instructions reviewed with patient as applicable. Patient advised if symptoms do not improve or if symptoms worsen sooner, to contact the office for further evaluation by their primary care physician. Potential red flag symptoms discussed with the patient. Reviewed appropriate action plan to take if red flag symptoms occur. Patient agreeable to treatment plan. CALVIN Valdes LPN 06/25/2017 2:29 PM Signed 2.5mg solution aerosol treatment given per doctor's order. Prior to treatment, O2 sat is 95% on room air. Treatment completed. O2 sat is 94 % on room air. Tolerated well. Starr Santoro CNP 06/25/2017 2:31 PM Signed ACUTE BRONCHITIS: You have acute bronchitis. This means the airway passages in your lungs are inflamed. Bronchitis may be caused by viruses or bacteria. Inhaling cigarette smoke will always make it worse. Exposure to irritating chemicals or second hand smoke as well as allergies can contribute to bronchitis. Repeat episodes of bronchitis may cause lifelong lung problems. Acute bronchitis is usually treated with rest, fluids, cough medicine, and possibly antibiotics or inhaled medicine to open up the small airways. It is very important that you avoid smoke and drink increased amounts of fluids. A cool air vaporizer can help thin bronchial secretions. This makes it easier to cough and clear your chest. If you are a cigarette smoker, consider using nicotine gum or skin patches to help you withdraw. Recovery from bronchitis is often slow, but you should start feeling better after 2-3 days of treatment. Please call your doctor or return here if you have any of the following symptoms: - Increased fever, chills, or chest pain. - Severe shortness of breath or bloody sputum. - Do not improve after 3 days of proper treatment. Referring Provider: SELF [[id number]] Allergies As of Date: 06/25/2017 Noted Allergy Reaction environmental [Other] 08/11/2005 Comments: stuffy nose, itchy eyes Date Reviewed: 06/25/2017 Reviewed by: Starr SwainFlo[facility] ChildrenNicole Santoro - Fully Assessed Reason for Visit: Cough [28] Cmt: with congestion Primary Visit Diagnosis:Bronchitis [J40] Other Visit Diagnosis:Wheeze [R06.2] Order(s):albuterol (PROVENTIL) 2.5 mg /3 mL (0.083 %) nebulizer solutionUse 3 mL via nebulizer one time only for 1 dose. Use over 5-15minutes.Disp: 3 mLRfl: 0 predniSONE (DELTASONE) 20 mg tabletTake 2 tablets by mouth once daily for 5 days.Disp: 10 tabletRfl: 0 azithromycin (ZITHROMAX) 250 mg tabletTake 1 tablet by mouth once daily.Disp: 1 PackageRfl: 0 Prescriptions as of 06/25/2017 Sig: ALBUTEROL SULFATE 2.5 MG/3 ML* Use 3 mL via nebulizer one ti* PREDNISONE 20 MG TABLET Take 2 tablets by mouth once * AZITHROMYCIN 250 MG TABLET Take 1 tablet by mouth once d* PRAVASTATIN 10 MG TABLET TAKE ONE TABLET BY MOUTH ONCE* CLOTRIMAZOLE 1 % TOPICAL CREAM Apply 1 application to affect* BUSPIRONE 5 MG TABLET Take 1 tablet by mouth three * OMEPRAZOLE 20 MG CAPSULE,VERA* Take 1 capsule by mouth once * LISINOPRIL 20 MG TABLET Take 1 tablet by mouth once d* ALBUTEROL SULFATE HFA 90 MCG/* Inhale 2 Puffs as instructed * LORATADINE 10 MG TABLET Take 1 tablet by mouth once d* ASPIRIN 81 MG TABLET Take 1 tablet by mouth once d* FOLIC ACID 800 MCG TABLET Take one(1) tablet daily. CITRACAL PLUS D 315 MG-200 UN* take one daily THERAPEUTIC MULTIVITAMIN TABL* Take one(1) tablet daily. Problem List As Of Date 06/25/2017 Noted Resolved GERD (gastroesophageal reflux disease) [K21.9] INVALID FOR* Priority: A More... Obesity, unspecified [E66.9] INVALID FOR* Priority: B More... Allergic Rhinitis, Cause Unspecified [J30.9] INVALID FOR* Priority: A Personal history of malignant melanoma of skin *INVALID FOR*12/03/2016 Essential hypertension, benign [I10] INVALID FOR* Priority: A More... 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 Routine gynecological examination [Z01.419] INVALID FOR*09/30/2011 Class: Chronic More... Hyperlipidemia, mixed [E78.2] INVALID FOR* Priority: A More... More... Mucous polyp of cervix [N84.1] INVALID FOR*04/19/2013 More... Panic attack [F41.0] INVALID FOR* More... Insomnia [G47.00] INVALID FOR* More... Vitamin D deficiency [E55.9] INVALID FOR* More... Acoustic neuroma (HCC) [D33.3] INVALID FOR* More... Anxiety neurosis [F41.1] INVALID FOR* More... Kidney stones [N20.0] INVALID FOR* More... Other instructions from your clinician: ACUTE BRONCHITIS: You have acute bronchitis. This means the airway passages in your lungs are inflamed. Bronchitis may be caused by viruses or bacteria. Inhaling cigarette smoke will always make it worse. Exposure to irritating chemicals or second hand smoke as well as allergies can contribute to bronchitis. Repeat episodes of bronchitis may cause lifelong lung problems. Acute bronchitis is usually treated with rest, fluids, cough medicine, and possibly antibiotics or inhaled medicine to open up the small airways. It is very important that you avoid smoke and drink increased amounts of fluids. A cool air vaporizer can help thin bronchial secretions. This makes it easier to cough and clear your chest. If you are a cigarette smoker, consider using nicotine gum or skin patches to help you withdraw. Recovery from bronchitis is often slow, but you should start feeling better after 2-3 days of treatment. Please call your doctor or return here if you have any of the following symptoms: - Increased fever, chills, or chest pain. - Severe shortness of breath or bloody sputum. - Do not improve after 3 days of proper treatment. Visit Notes: >> Vannessa Sharpe LPN Lizette Jun 25, 2017 2:28 PM Status: Signed 2.5mg solution aerosol treatment given per doctor's order. Prior to treatment, O2 sat is 95% on room air. Treatment completed. O2 sat is 94 % on room air. Tolerated well. Prescriptions ordered this encounter Disp Refills Start End ALBUTEROL SULFATE 2.5 MG/3 ML (0.083* 3 mL 0 06/25/2017 06/25/2017 Class: In Office Route: NEBULIZATION Sig: Use 3 mL via nebulizer one time only for 1 dose. Use over 5-15minutes. PREDNISONE 20 MG TABLET 10 t* 0 06/25/2017 06/30/2017 Route: ORAL Sig: Take 2 tablets by mouth once daily for 5 days. AZITHROMYCIN 250 MG TABLET 1 Pa* 0 06/25/2017 Class: Print RX Cmt: Take 2 pills on day 1 Day 2-5 take 1 pill per day Route: ORAL Sig: Take 1 tablet by mouth once daily. Encounter Status:Closed by STARR SANTORO CNP on 06/25/17 ALLERGIES ALLERGIES DATE TYPE / CODE NAME / CODE REACTION SEVERITY SOURCE 02/09/2017 Drug No Known Unknown [place] Allergy/[id number](S Allergies/F Community NOMED CT) [id number][facility] 08/11/2005 Miscellaneous OTHER [facility] Allergy/996081172([facility] NOMED CT) Repository ENCOUNTERS ENCOUNTERS ADMIT/DISCHARGE ACCOUNT ADMITTING ENCOUNTER LOCATION SOURCE NUMBER CLASS 05/18/2018 [id number] Ambulatory [facility] Hospital ing:RAD Repository 03/23/2018/03/24/20 [id number] Ambulatory [address] Repository 01/27/2018/01/28/20 [id number] Ambulatory [address] Repository 01/12/2018/02/10/20 [id number] Ambulatory [address] Repository 11/02/2017/11/03/19 [id number] Ambulatory [address] Repository 10/12/2017/10/14/19 [id number] Ambulatory [address] Repository 09/09/2017/09/12/19 [id number] Ambulatory [address] Repository 09/01/2017/09/03/19 [id number] Ambulatory [address] Repository 09/01/2017/09/04/19 [id number] Ambulatory [address] Repository 08/25/2017/08/26/19 [id number] Ambulatory BMSBuilding:W [address] Repository 08/24/2017/08/26/19 [id number] Jose Huntley Ambulatory [address] Hospital ing:ICURoom: Repository [id number]: 1 08/24/2017 [id number] Jose Huntley Ambulatory BMSBuilding:[place] Repository 08/24/2017 [id number] Jose Huntley Ambulatory BMSBuilding:[place] Repository 08/24/2017 [id number] Ambulatory BMSBuilding:[facility] Repository 08/24/2017/08/25/19 [id number] Ambulatory [address] Repository 07/31/2017/08/01/19 [id number] Ambulatory [address] Repository 07/06/2017/07/08/19 [id number] Ambulatory [address] Repository 06/25/2017/06/27/19 [id number] Ambulatory [address] Repository PAYERS PAYERS ENCOUNTER GUARANTOR PAYER SUBSCRIBER SOURCE 05/18/2018 NICHOLE [place] [id number] [place] Insurance:MEDICARE [place]FF[place]ANDOB: [place] [facility] [id number] Hospital [id number]: (330) Number: Repository [phone] () [id number] Date:2018-05-18 05/18/2018 Secondary NICHOLE [place] Insurance:MEDICAL KAUFFMANDOB: [facility] [id number] Hospital Number: Repository [id number] Date:[id number] [address] [address]PR: 05/18/2018 Tertiary NOT GIVENUNK [place] Insurance:SELF PAY [facility] Number: Effective Repository Date:2018-05-18 08/25/2017 NICHOLE Simons Primary N[place]HOLE [place] [id number] [place] Insurance:MEDICARE KAUFFMANDOB: [place] [facility] [id number] Hospital [address]64[address]Ocv: [phone]) Number: Repository [phone] () [id number] Date:2017-08-24 08/25/2017 Secondary NICHOLE [place] Insurance:MEDICAL KAUFFMANDOB: [facility] [id number] Hospital Number: Repository [id number] Date:7428-87-39BQ [address] [address]GA: 08/25/2017 Tertiary NOT GIVENUNK [place] Insurance:SELF PAY [facility] Number: Effective Repository Date:2017-08-25 08/24/2017 NICHOLE M Primary N[place]HOLE [place] [id number] [place] Insurance:MEDICARE [place]AUFF[place]ANDOB: [place] [facility] [id number] Hospital [id number]: (330) Number: Repository [phone] () [id number] Date:2017-08-24 08/24/2017 Secondary NICHOLE M Natali[place] Insurance:MEDICAL KAUFFMANDOB: [facility] [id number] Hospital Number: Repository [id number] Date:[id number] [address] [address]KN: 08/24/2017 Tertiary NOT GIVENUNK [place] Insurance:SELF PAY [facility] Number: Effective Repository Date:2017-08-24 08/24/2017 NICHOLE Simons Primary NICHOLE [place] [id number] [place] Insurance:MEDICARE [place]AUFF[place]ANDOB: [place] [facility] [id number] Hospital [id number]: (330) Number: Repository [phone] () [id number] Date:2017-08-24 08/24/2017 Secondary NICHOLE [place] Insurance:MEDICAL KAUFFMANDOB: [facility] [id number] Hospital Number: Repository [id number] Date:[id number] [address] [address]ID: 08/24/2017 Tertiary NOT GIVENUNK [place] Insurance:SELF PAY [facility] Number: Effective Repository Date:2017-08-24 08/24/2017 NICHOLE Simons Primary NICHOLE [place] [id number] [place] Insurance:MEDICARE KAUFF[place]ANDOB: [place] [facility] [id number] Hospital [address]Tsr: (330) Number: Repository [phone] () [id number] Date:2017-08-24 08/24/2017 Secondary NICHOLE [place] Insurance:MEDICAL KAUFFMANDOB: [facility] [id number] Hospital Number: Repository [id number] Date:1579-16-81BB [address] [address]NW: 08/24/2017 Tertiary NOT GIVENUNK [place] Insurance:SELF PAY [facility] Number: Effective Repository Date:2017-08-24 08/24/2017 NICHOLE Simons Primary NICHOLE [place] [id number] [place] Insurance:MEDICARE KAUFFMANDOB: [place] [facility] [id number] Hospital [address]Uzb: (330) Number: Repository [phone] () [id number] Date:2017-08-24 08/24/2017 Secondary NICHOLE [place] Insurance:MEDICAL KAUFFMANDOB: [facility] [id number] Hospital Number: Repository [id number] Date:2546-01-08[address] [place] [address]UL: 08/24/2017 Tertiary NOT GIVENUNK [place] Insurance:SELF PAY [facility] Number: Effective Repository Date:2017-08-24
== END ==
PROVIDERS: Family Provider Internal Medicine; PCP Internal Medicine; Referring Provider Urology; Visit Provider Urology
DX: N20.0 Calculus of kidney (principal)
CPT/HCPCS: 74018

== ENCOUNTER → 2019-05-19 15:07 | Outpatient (CLI) | payer MEDICARE, OTHER, SELFPAY ==
--- NOTE | 2019-05-19 15:12 | RAD_ITS ---
STUDY: X-RAY - ABDOMEN/PELVIS REASON FOR EXAM: Female, 68 years old. Hx urinary calculi left side TECHNIQUE: Single AP view of the abdomen / pelvis. COMPARISON: None. FINDINGS: Normal visualized lung bases. There is an unremarkable bowel gas pattern. The visualized liver, spleen and kidneys are grossly normal in size and morphology. Normal soft tissue structures. Normal visualized osseous structures. RAD/Abdomen Single View IMPRESSION: Normal x-ray examination of the abdomen and pelvis. Electronically Signed: Abel Victor MD at 9:39 EST Tel , Service support ,
== END ==
LOC: RAD 15:09
PROVIDERS: PCP Internal Medicine; Referring Provider Urology; Visit Provider Urology
DX: Z87.442 Personal history of urinary calculi (principal)
CPT/HCPCS: 74018

== ENCOUNTER 2023-12-19 13:09 | Inpatient (IN) | payer MEDICARE, OTHER, SELFPAY ==
[2023-12-19] VITALS (11 sets, daily range): BP systolic 101–177; BP diastolic 58–79; PULSE 76–81; RESP 15–18; TEMP 35.7–36.3; O2SAT 80–99; BMI 45.6; BMI 42.8
--- NOTE | 2023-12-19 13:28 | CT_ITS ---
STUDY: CT ABDOMEN AND PELVIS WITH CONTRAST - URINARY TRACT REASON FOR EXAM: Female, 73 years old. Left lower quadrant pain RADIATION DOSAGE (If Supplied By Facility): CTDIvol = ( 17.07 ) mGy, DLP = ( 1343.02 ) mGycm TECHNIQUE: IV 100mL Isovue-370 was administered. Transaxial images were obtained from the dome of the diaphragm to the symphysis pubis subsequent to intravenous contrast administration. In the arterial, nephrographic and excretory phases. Multiplanar coronal and sagittal images were reformatted. The protocol utilizes one or more of the following dose reduction techniques: automated exposure control, adjustment of mA and/or kV according to patient size,and/or use of iterative reconstruction technique. COMPARISON: No relevant prior comparison study available FINDINGS: The visualized lung bases are unremarkable. The visualized portions of the heart are within normal limits. There is decreased attenuation of the liver consistent with steatosis. There is non-visualization of the gallbladder, which may be secondary to either contraction or a prior cholecystectomy. Normal spleen. Normal pancreas. Normal bilateral adrenal glands. There is a moderate-sized hiatal hernia. Normal small intestine. There are multiple colonic diverticula consistent with diverticulosis. The appendix is visualized and appears normal. Normal abdominal aorta. No retroperitoneal adenopathy. Normal right kidney. There is left-sided hydroureteronephrosis secondary to a 3.6 mm calculus within the distal ureter. There is a left renal cyst. Normal urinary bladder. Normal abdominal wall. There are diffuse degenerative changes of the visualized lumbar spine. There is a grade 1 anterior spondylolisthesis of L4 on L5. CT/Abdomen/Pelvis W IV Cont ONLY IMPRESSION: Left-sided hydroureteronephrosis secondary to a 3.6 mm calculus within the distal ureter. Fatty infiltration of the liver. Hiatal hernia. Colonic diverticulosis. Electronically Signed: Bettina Oreilly MD at 15:10 EDT ,
--- NOTE | 2023-12-19 13:29 | EDS_ITS ---
HPI HPI - GI History of Present Illness Chief Complaint: Abd Pain Narrative Narrative: 73-year-old female past medical history of hypertension and hyperlipidemia presents with left lower quadrant abdominal pain that began early this morning. She states was around 3:00 in the morning, proximately 10 hours ago, when she had sudden pain on her left lower quadrant. It hurt more when she was lying on that side so she turned over, and the pain resolved. She was able to wake up after sleeping for a few more hours, then began having left lower quadrant pain that is sometimes stabbing, but otherwise dull and achy. She states she is nauseated and has been dry heaving or gagging but no vomiting. She had 3 bowel movements that were normal today. No fevers or chills. No previous abdominal surgeries. PFSH PFSH Home Medications ?Medication ?Instructions ?Recorded ?Last Taken ?Type buspirone 5 mg tablet 5 mg PO BID 08/24/17 Unknown History lisinopril 2.5 mg tablet 20 mg PO DAILY 08/24/17 Unknown History omeprazole 20 mg capsule,delayed 20 mg PO DAILY 08/24/17 Unknown History release pravastatin 10 mg tablet 10 mg PO DAILY 08/24/17 Unknown History cephalexin 500 mg capsule 500 mg PO BID #20 caps 12/19/23 Unknown Rx ondansetron 4 mg disintegrating 4 mg PO Q8H PRN PRN nausea and 12/19/23 Unknown Rx tablet vomiting #12 tabs oxycodone-acetaminophen 5 mg-325 1 tab PO Q8H PRN pain 3 days #12 12/19/23 Unknown Rx mg tablet (Percocet) tabs tamsulosin 0.4 mg capsule (Flomax) 0.4 mg PO DAILY #10 caps 12/19/23 Unknown Rx Allergy/AdvReac Type Severity Reaction Status Date / Time No Known Allergies Allergy Verified 12/19/23 13:09 Social History Smoking Status: Never smoker ROS ROS ED ROS Narrative Constitutional: No fever, no chills. HEENT: No sore throat. No neck pain. No loss of vision. No rhinorrhea. Cardiovascular: No chest pain. No palpitations. No pedal edema. Respiratory: No cough, no shortness of breath. Abdominal: Left lower quadrant abdominal pain. Positive nausea with gagging and dry heaving. No diarrhea. Genitourinary: No dysuria. No hematuria. Musculoskeletal: No myalgias. No arthralgias. Neurologic: No headaches. No dizziness. No lightheadedness. Skin: No rash. No change in color. Psychiatric: No depression. No anxiety. EXAM Physical Exam Narrative Exam Narrative: Afebrile. Vital signs noted. Nontoxic-appearing. HEENT: Normocephalic. Atraumatic. PERRL, EOMI. Neck soft and supple. No point tenderness or step off. Cardiovascular: Regular rate and rhythm. No murmurs, rubs, or gallops appreciated. Respiratory: No tachypnea. Lungs clear to auscultation bilaterally. Gastrointestinal: Abdomen soft, tenderness in left lower quadrant with normoactive bowel sounds. No rebound or guarding. Neurological: Awake. Alert. Nonfocal, nonlateralizing. Skin: No rash. Normal color. No pallor. Musculoskeletal: No pedal edema. Full range of motion extremities. Const Vital Signs: 12/19/23 13:09 12/19/23 15:09 Temperature 96.3 F L Temperature Source Temporal Pulse Rate 76 81 Respiratory Rate 18 16 Blood Pressure 177/79 H 101/69 Blood Pressure Mean 111 79 Pulse Ox 93 95 Oxygen Delivery Method Room Air Room Air MDM MDM MDM Narrative Medical decision making narrative: Differential diagnosis includes but not limited to diverticulitis/diverticular abscess versus ovarian cyst versus ureterolithiasis. I have low suspicion for obstruction. She was administered a bolus of normal saline, morphine, and ondansetron. Comprehensive workup was pursued. I do feel CT imaging is indica maggie. Patient was administered additional dose of morphine and ondansetron because she experienced nausea and vomiting. I reviewed her laboratory work and she has normal white count of 6.2, hemoglobin 12.6, hematocrit 40.4 with normal platelet count of 234. CMP is grossly unremarkable with normal LFTs, BUN of 17 and creatinine 0.96. Sodium normal at 139 with potassium normal at 3.9. Lipase is normal at 20 so I doubt pancreatitis. CT of the abdomen and pelvis was obtained and radiology report reviewed. There is a 3.6 mm ureteral stone causing hydronephrosis on the left in the distal ureter. Upon repeat examination, she feels improved. She was able to give a urine sample and she is positive for nitrites with 25-50 WBCs and 50-100 RBCs. Her urine was sent for culture. As I feel that she has a urinary tract infection along with ureterolithiasis, she was started on Keflex and prescription written to take twice a day for the next 10 days. She was also given prescriptions for Percocet, Flomax, and Zofran for nausea. She can take yfbk-bjr-cijiver ibuprofens as an NSAID as well. She has seen Dr. Brooks in the past. She was told that she could become sick with a urinary tract infection and kidney stone very rapidly. I went over return instructions with the patient and her son. However given that she does not have a fever or a white count here, I feel she can be discharged to follow-up. Patient is comfortable with the plan. Disposition is discharged home in stable condition. History & Record Review Discussion w/independent historian: Patient Lab Data Attestation: I reviewed the patient's lab results. Labs: Laboratory Results - last 24 hr 12/19/23 12/19/23 13:28 15:11 WBC 6.2 RBC 4.33 Hgb 12.6 Hct 40.4 MCV 93.3 MCH 29.1 MCHC 31.2 L RDW Std Deviation 52.8 H RDW Coeff of Palak 15.2 H Plt Count 234 MPV 10.3 Immature Gran % (Auto) 0.300 Neut % (Auto) 79.6 H Lymph % (Auto) 13.5 L [place] % (Auto) 5.1 Eos % (Auto) 1.0 Baso % (Auto) 0.5 Absolute Neuts (auto) 5.0 Absolute Lymphs (auto) 0.84 Nucleated RBC % 0 Sodium 139 Potassium 3.9 Chloride 101 Carbon Dioxide 32.0 Anion Gap 6 BUN 17 Creatinine 0.96 Est GFR (MDRD) Af Amer 74 Est GFR (MDRD) Non-Af 61 BUN/Creatinine Ratio 17.8 Glucose 105 Calcium 9.4 Total Bilirubin 0.50 AST 21 ALT 35 Alkaline Phosphatase 88 Total Protein 7.6 Albumin 3.6 Globulin 4.0 Albumin/Globulin Ratio 0.9 Lipase 20 Urine Color Yellow Urine Clarity Cloudy Urine pH 7.0 Ur Specific [place] 1.005 Urine Protein 100 H Urine Glucose (UA) Normal Urine Ketones 15 H Urine Occult Blood 250 H Urine Nitrite Positive H Urine Bilirubin Negative Urine Urobilinogen 1 H Ur Leukocyte Esterase 25 H Urine RBC 50-100 SEEN Urine WBC 25-50 SEEN Ur Squamous Epith Cells 0-5 SEEN Urine Bacteria 1+ Urine Mucus 0 SEEN Radiography Diagnostic Testing: Clinical Impression(s) from Imaging Studies Abdomen/Pelvis CT 12/19/23 13:28 IMPRESSION: Left-sided hydroureteronephrosis secondary to a 3.6 mm calculus within the distal ureter. Fatty infiltration of the liver. Hiatal hernia. Colonic diverticulosis. Electronically Signed: Bettina Oreilly MD at 15:10 EDT , Discharge Plan Triage Chief Complaint: Abd Pain ED Provider: Enrico Osborn Dx/Rx/DC Orders Clinical Impression: Ureterolithiasis, Abdominal pain, LLQ, UTI (urinary tract infection) Instructions: Urinary Tract Infections in Women, ED Kidney Stone with Pain Prescriptions: New oxycodone-acetaminophen [Percocet] 5-325 mg tablet 1 tab PO Q8H PRN (Reason: pain) 3 Days Qty: 12 0RF tamsulosin [Flomax] 0.4 mg capsule 0.4 mg PO DAILY Qty: 10 0RF ondansetron 4 mg tablet,disintegrating 4 mg PO Q8H PRN PRN (Reason: nausea and vomiting) Qty: 12 0RF cephalexin 500 mg capsule 500 mg PO BID Qty: 20 0RF No Action buspirone 5 MG tablet 5 mg PO BID pravastatin 10 MG tablet 10 mg PO DAILY Patient Comments: omeprazole 20 MG capsule 20 mg PO DAILY lisinopril 2.5 MG tablet 20 mg PO DAILY Primary Care Provider: Madeline Rogers Referrals: Madeline Rogers MD [Primary Care Provider] - John Brooks MD [Med Staff - Active Staff] - 2 Days Activity Restrictions/Additional Instructions: You have been diagnosed with both a kidney/ureteral stone, and a urinary tract infection. Return to the emergency department with fever, nausea and vomiting, inability to take your medications, increasing pain, new or worsening symptoms. Otherwise, drink plenty of fluids, and follow-up with urology, Dr. Brooks, on Thursday. Print Language: American Disposition Disposition: Home, Self Care
[2023-12-19] MEDS: 0.9% Normal Saline (1000mL) 1,000 ML 999 ML IV (13:33)
[2023-12-19] MEDS: Ondansetron 4 MG/2 ML Vial IV ×2 (13:34→14:37)
[2023-12-19] MEDS: Morphine 4 MG/ML Syringe IV ×2 (13:35→14:37)
[2023-12-19 13:47] LABS: Absolute Lymphocyte Count 0.84 X10^3/uL (0.83-4.51); Basophil# 0.03 X10^3/uL; Basophil% 0.5 % (0-1); Eosinophil# 0.06 X10^3/uL; Hematocrit 40.4 % (37-47); Hemoglobin 12.6 g/dL (12.0-15.0); Lymphocyte # 0.84 X10^3/ul (0.83-4.51); Lymphocyte % 13.5 % (19-41); Mean Corp Hgb Conc 31.2 g/dL (32-36); Mean Corpuscular Hgb 29.1 pg (27.0-32.0); Mean Corpuscular Volume 93.3 fL (81-99); Mean Platelet Vol. 10.3 fl (6.2-12.0); Monocyte# 0.32 X10^3/uL; Monocyte% 5.1 % (0-10); NRBC Flagged by Analyzer 0 % (0-5); Neutrophil # 4.95 X10^3/uL (2.7-7.7); Neutrophil % 79.6 % (47-70); Platelet Count 234 K/mm3 (150-450); RBC Distribution Width CV 15.2 % (11.6-14.6); RBC Distribution Width SD 52.8 fl (35.1-43.9); Red Blood Count 4.33 M/mm3 (4.2-5.4); White Blood Count 6.2 K/mm3 (4.4-11.0)
[2023-12-19 13:57] LABS: ALB/GLOB Ratio 0.9 RATIO (0.9-2.4); AST(SGOT) 21 U/L (15-37); Alanine Aminotransfer ALT/SGPT 35 U/L (13-56); Albumin, Serum 3.6 g/dL (3.2-5.0); Alkaline Phosphatase 88 U/L (45-117); Anion Gap 6 (5-15); BUN 17 mg/dL (7-18); BUN/Creat Ratio 17.8 RATIO (10-20); Calcium,Total 9.4 mg/dL (8.5-10.1); Chloride 101 mmol/L (98-107); Creatinine, Serum 0.96 mg/dL (0.55-1.02); EST Glomerular Filtration Rate 61 mL/min (>60); Est Glom Filt Rate - Afr Amer 74 mL/min (>60); Glucose 105 mg/dL (74-106); Lipase 20 U/L (13-75); Potassium 3.9 mmol/L (3.5-5.1); Protein, Total 7.6 g/dL (6.4-8.2); Sodium Level 139 mmol/L (136-145)
[2023-12-19 15:18] LABS: Mucous, Urine 0 SEEN /hpf (<or=2+)
[2023-12-19 15:21] LABS: Color, Urine Yellow (Yellow); Glucose, Dipstick Normal (Normal); Ketone-Dipstick 15 mg/dl (Negative); Leukocyte Esterase-Dipstick 25 /ul (Negative); Nitrite-Dipstick Positive (Negative); Occult Blood-Urine 250 /ul (Negative); Protein-Dipstick 100 mg/dl (Negative); Specific Gravity, Urine 1.005 (1.002-1.030); Urine Bilirubin Dipstick Negative (Negative); Urine Clarity Cloudy (Clear); Urine Urobilinogen 1 mg/dl (Normal)
[2023-12-19 15:28] LABS: Bacteria 1+ /hpf (None Seen); Red Blood Cells-Urine 50-100 SEEN /hpf (0-5); Squamous Epithelial Cells - UA 0-5 SEEN /hpf (5-10); White Blood Cells 25-50 SEEN /hpf (0-5)
[2023-12-19] MEDS: Cephalexin 250 MG Capsule 500 MG PO (15:47)
--- NOTE | 2023-12-19 16:31 | EKG12_ITS ---
Test Reason : Blood Pressure : / mmHG Vent. Rate : 073 BPM Atrial Rate : 073 BPM P-R Int : 158 ms QRS Dur : 082 ms QT Int : 410 ms P-R-T Axes : 045 -02 013 degrees QTc Int : 451 ms Normal sinus rhythm Normal ECG Confirmed by Andrew White ([id number]), editor & co founder CRUZ ROE ([id number]) on 12/21/2023 10:49:43 AM Referred By: Confirmed By:Andrew White
[2023-12-19 17:18] LABS: Troponin-I HS 8 pg/mL (3.0-54.0)
--- NOTE | 2023-12-19 17:25 | RAD_ITS ---
INDICATION: hypoxia EXAMINATION/TECHNIQUE: X-RAY - XR Chest 1 View COMPARISON: 08/24/2017. FINDINGS: Mild central pulmonary venous congestion. Tortuous and calcified thoracic aorta. The heart is mildly enlarged. No pleural effusion or pneumothorax. Degenerative changes of the thoracic spine. RAD/Chest 1 View (Portable) IMPRESSION: Cardiomegaly with mild central pulmonary venous congestion. Electronically Signed: Petar Farrar MD at 18:07 EDT ,
[2023-12-19 18:41] LABS: BNP,B-Type NATRIURETIC PEPTIDE 45.7 pg/mL (0-100)
--- NOTE | 2023-12-19 18:50 | HP.PCM.HOS_ITS ---
[facility] - General General Date of Admission: 12/19/23 Date of Service: 12/19/23 Chief Complaint: Shortness of breath HPI Narrative 71-year-old with history of hypertension, dyslipidemia presents with left lower quadrant abdominal pain since last 1 day. The pain started started yesterday around 3 PM and has been dull and achy. She has associated nausea. CT scan in the ED showed left-sided hydroureteronephrosis due to a 3.6 mm calculus in the distal ureter. The region of the pain was considered to be a calculus and she received 1 dose of morphine Since the dose of morphine she has been requiring oxygen and has persistent acute on chronic hypoxia following the medication. Despite weaning attempts she is requiring oxygen support via nasal cannula and desaturated to mid 80s on ambulation in the ED. She is being admitted for further observation and monitoring. Has a history of snoring, was previously recommended to get sleep study but has not followed up. Her has OMER, was previously on CPAP but he stopped due to nonresponse She does not smoke, no secondhand smoking, no history of COPD. Was previously diagnosed with chronic bronchitis in high school but has not been taking any inhalers for the same. At the time presentation she was afebrile, blood pressure was 177/79, now down to 113/67, initial respiratory rate was 16, satting 95% on room air now 93% on nasal cannula of 2 L/min. She recieved 4 mg of morphine and fluids in the ED. In the ED her WBC was 6.2, hemoglobin 12.6, platelet 234, sodium 139, potassium 3.9, BUN 17, creatinine 0.9, total bilirubin 0.5, alkaline phosphatase 88, BNP 45.7, total albumin 3.6, lipase 20, urinalysis showed 100 urine proteins, occult blood positive, nitrite positive, leukoesterase positive, 25-50 WBC, 50-100 RBC, 1+ urine bacteria. [facility] Home Medications ?Medication ?Instructions ?Recorded ?Last Taken ?Type buspirone 5 mg tablet 5 mg PO BID 08/24/17 Unknown History lisinopril 2.5 mg tablet 20 mg PO DAILY 08/24/17 Unknown History omeprazole 20 mg capsule,delayed 20 mg PO DAILY 08/24/17 Unknown History release pravastatin 10 mg tablet 10 mg PO DAILY 08/24/17 Unknown History cephalexin 500 mg capsule 500 mg PO BID #20 caps 12/19/23 Unknown Rx fluticasone propionate 50 1 spray intranasal QHS 12/19/23 Unknown History mcg/actuation nasal spray,suspension furosemide 20 mg tablet (Lasix) 20 mg PO DAILY 7 days #7 tabs 12/19/23 Unknown Rx hydrochlorothiazide 12.5 mg capsule 12.5 mg PO DAILY 12/19/23 Unknown History lisinopril 40 mg tablet 40 mg PO DAILY 12/19/23 Unknown History ondansetron 4 mg disintegrating 4 mg PO Q8H PRN PRN nausea and 12/19/23 Unknown Rx tablet vomiting #12 tabs oxycodone-acetaminophen 5 mg-325 1 tab PO Q8H PRN pain 3 days #12 12/19/23 Unknown Rx mg tablet (Percocet) tabs tamsulosin 0.4 mg capsule (Flomax) 0.4 mg PO DAILY #10 caps 12/19/23 Unknown Rx Allergy/AdvReac Type Severity Reaction Status Date / Time No Known Allergies Allergy Verified 12/19/23 13:09 Family History no significant family his no significant family history Surgical History no surgical history no surgical history Social History Smoking Status: Never smoker ROS Review of Systems ROS Unobtainable: Denies due to encephalopathy, due to endotracheal tube, due to mental condition, due to mental status or other Constitutional Constitutional: Denies anorexia, change in weight, chills, fatigue, fever(s), malaise, night sweats, weakness or other Eyes Eyes: Denies blurry vision, change in eye color, change in vision, discharge from eye(s), double vision, erythema, eye pain, loss of vision or other ENT HEENT: Denies abnormal hearing, dysphagia, ear pain, epistaxis, headache(s), hearing loss, nasal congestion, nasal discharge, post nasal drip, sinus pressure, sore throat or other Cardiovascular Cardiovascular: Denies chest pain, claudication, dyspnea on exertion, edema, lightheadedness, orthopnea, palpitations, paroxysmal nocturnal dyspnea, rapid heart rate, syncope or other Respiratory/Chest Respiratory/Chest: Denies cough, dyspnea, excessive phlegm production, hemoptysis, productive cough, shortness of breath at rest, shortness of breath with exertion, wheezing or other Gastrointestinal Gastrointestinal: Reports abdominal pain; Denies coffee ground emesis, constipation, diarrhea, dyspepsia, hematemesis, hematochezia, loose stools, melena, nausea, vomiting or other Genitourinary Genitourinary: Reports dysuria; Denies burning urination, difficulty urinating, hematuria, nocturia, urinary frequency, urinary hesitancy, urinary incontinence, urinary urgency or other Musculoskeletal Musculoskeletal: Reports back pain; Denies arthralgias, joint pain, joint stiffness, joint swelling, myalgias, neck pain or other Neurologic Neurologic: Denies abnormal gait, abnormal speech, confusion, disequilibrium, dizziness, focal weakness, headache(s), numbness, paresthesias, seizure-like activity, seizures, syncope, tingling, tremor(s) or other Psychiatric Psychiatric: Denies anxiety, depression, homicidal ideation, suicidal ideation or other Endocrine Endocrinology: Denies change in body appearance, cold intolerance, excessive sweating, heat intolerance, polydipsia, polyuria or other Hematologic/Lymphatic Hematologic/Lymphatic: Denies anemia, easy bleeding, easy bruising, lymphadenopathy or other Allergic/Immunologic Allergic/Immunologic: Denies rhinitis, hives, eczemia, asthma or other Vital Signs Vital Signs Vital Signs: 12/19/23 13:09 12/19/23 15:09 12/19/23 15:50 Temperature 96.3 F L Temperature Source Temporal Pulse Rate 76 81 Respiratory Rate 18 16 Blood Pressure 177/79 H 101/69 Blood Pressure Mean 111 79 Pulse Ox 93 95 88 Oxygen Delivery Method Room Air Room Air Room Air Oxygen Flow Rate (L/min) 12/19/23 15:51 12/19/23 17:00 12/19/23 17:24 Temperature 97.4 F L Temperature Source Pulse Rate 81 Respiratory Rate 15 17 Blood Pressure 113/67 Blood Pressure Mean 82 Pulse Ox 99 93 96 Oxygen Delivery Method Nasal Cannula Room Air Oxygen Flow Rate (L/min) 2 12/19/23 18:15 12/19/23 18:16 Temperature Temperature Source Pulse Rate Respiratory Rate Blood Pressure Blood Pressure Mean Pulse Ox 80 93 Oxygen Delivery Method Room Air Nasal Cannula Oxygen Flow Rate (L/min) 2 Weight Weight: 291 lb 3.69 oz Body Mass Index (BMI) 45.6 Physical Exam Const alert, oriented x3 and no apparent distress HEENT normocephalic Eyes PERRL Neck no lymphadenopathy Resp normal respiratory effort and no retractions Resp Narrative: No adventitious breath sounds, bilateral lung bases clear Cardio regular rate and regular rhythm GI normal to inspection, nondistended, normoactive bowel sounds Extremity normal to inspection Extremity Narrative: No pedal edema Neuro oriented x3 Sensorium / Orientation: awake and alert Psych affect normal Results Medical Records Data Attestation: I reviewed the patient's medical records Lab / Micro Data Attestation: I reviewed the patient's lab results. 12/19/23 13:28 12/19/23 13:28 Labs: Laboratory Results - last 24 hr 12/19/23 13:28: WBC 6.2, RBC 4.33, Hgb 12.6, Hct 40.4, MCV 93.3, MCH 29.1, MCHC 31.2 L, RDW Std Deviation 52.8 H, RDW Coeff of Palak 15.2 H, Plt Count 234, MPV 10.3, Immature Gran % (Auto) 0.300, Neut % (Auto) 79.6 H, Lymph % (Auto) 13.5 L, [place] % (Auto) 5.1, Eos % (Auto) 1.0, Baso % (Auto) 0.5, Absolute Neuts (auto) 5.0, Absolute Lymphs (auto) 0.84, Nucleated RBC % 0, Sodium 139, Potassium 3.9, Chloride 101, Carbon Dioxide 32.0, Anion Gap 6, BUN 17, Creatinine 0.96, Est GFR (MDRD) Af Amer 74, Est GFR (MDRD) Non-Af 61, BUN/Creatinine Ratio 17.8, Glucose 105, Calcium 9.4, Total Bilirubin 0.50, AST 21, ALT 35, Alkaline Phosphatase 88, B-Natriuretic Peptide 45.7, Total Protein 7.6, Albumin 3.6, Globulin 4.0, Albumin/Globulin Ratio 0.9, Lipase 20 12/19/23 15:11: Urine Color Yellow, Urine Clarity Cloudy, Urine pH 7.0, Ur Specific [place] 1.005, Urine Protein 100 H, Urine Glucose (UA) Normal, Urine Ketones 15 H, Urine Occult Blood 250 H, Urine Nitrite Positive H, Urine Bilirubin Negative, Urine Urobilinogen 1 H, Ur Leukocyte Esterase 25 H, Urine RBC 50-100 SEEN, Urine WBC 25-50 SEEN, Ur Squamous Epith Cells 0-5 SEEN, Urine Bacteria 1+, Urine Mucus 0 SEEN 12/19/23 16:45: Troponin I High Sens 8 Imaging Radiology Impression Abdomen/Pelvis CT 12/19/23 13:28 IMPRESSION: Left-sided hydroureteronephrosis secondary to a 3.6 mm calculus within the distal ureter. Fatty infiltration of the liver. Hiatal hernia. Colonic diverticulosis. Electronically Signed: Bettina Oreilly MD at 15:10 EDT , Chest X-Ray 12/19/23 17:25 IMPRESSION: Cardiomegaly with mild central pulmonary venous congestion. Electronically Signed: Petar Farrar MD at 18:07 EDT , Assessment & Plan Assessment/Plan (1) UTI (urinary tract infection): PLAN: Plan 73-year-old female with hypertension, dyslipidemia, morbid obesity [BMI 45.6] is being admitted for evaluation of acute hypoxia following morphine for pain relief in the ED. She presented with left lower quadrant abdominal pain and was found to have 3.6 mm stone in the distal ureter. She received morphine and one liter of fluid in the ED. Based on imaging findings with central venous congestion seen on chest x-ray the likely reason is acute on chronic heart failure. The other differential is obesity hypoventilation, or underlying OMER She will need further evaluation as an outpatient. The pain from her ureteral stone is well controlled and we will continue symptomatic therapy as the stone is less than 5 mm in size. #Acute on chronic respiratory failure: -1 dose IV Lasix 40 mg -Echocardiogram tomorrow -Continue nasal cannula -Bronchopulmonary hygiene -Switch from opioid-based analgesia to NSAIDs as needed -Check HbA1c and TSH tomorrow AM #Distal ureteral stone -Continue Flomax 0.4 mg daily -Analgesia with NSAIDs #Urinary tract infection #Asymptomatic bacteriuria -We will start therapy given the ureteral stones -Start therapy with oral Keflex 500 milligrams p.o. twice daily and complete therapy for 7 days #Hypertension -Continue home lisinopril -Continue hydrochlorothiazide 12.5 mg daily #Dyslipidemia: -Continue pravastatin #DVT prophylaxis: -Enoxaparin 40 mg twice daily Charges/Coding Visit Charges Inpatient E&M: 33931 Init Hosp L2
--- NOTE | 2023-12-19 19:09 | ECHOCS_ITS ---
Reason For Study: Chest Pain Procedure This was a 2D Doppler, Color Flow transthoracic echocardiogram. Contrast injection was performed. Exam performed portable in patient room. Left Ventricle Normal LV size. Mild concentric left ventricular hypertrophy. The left ventricular ejection fraction is 65 %. Normal diastology for age. Right Ventricle Normal right ventricle. Atria The left and right atria are normal. Bubble contrast study is positive for PFO. Mitral Valve Trivial mitral valve insufficiency. Tricuspid Valve Normal tricuspid valve. Aortic Valve Trisinus/trileaflet aortic valve. There is no aortic stenosis. Mild (1+) aortic valve insufficiency. Pulmonic Valve The pulmonic valve is not well visualized. Great Vessels Normal sized aortic root. Pericardium/Pleural No pericardial effusion. Medication Diluted definity 3.5ml given slow IV push to enhance endocardial definition. Performed a rapid injection of agitated mix of 9 cc saline and 1cc air to assess for atrial septal defect. MMode/2D Measurements & Calculations LVIDd: 5.1 cm IVSd: 1.2 cm Ao root diam: 3.0 cm LVIDs: 3.7 cm LVPWd: 1.1 cm LA dimension: 4.1 cm FS: 26.3 % LAV(MOD-bp): 72.1 ml LVAd ap4: 31.0 cm2 SV(MOD-sp4): 57.7 ml LAV(MOD-bp) Indexed: 30.9 ml/m2 LVLd ap4: 8.5 cm LAV(MOD-sp2): 65.4 ml EDV(MOD-sp4): 94.0 ml LAV(MOD-sp4): 74.8 ml EDV(sp4-el): 95.8 ml LVAs ap4: 16.8 cm2 LVLs ap4: 6.6 cm ESV(MOD-sp4): 36.3 ml ESV(sp4-el): 35.9 ml EF(MOD-sp4): 61.4 % EF(sp4-el): 62.5 % SV(sp4-el): 59.9 ml LA A4 area: 24.4 cm2 RA A4 area: 20.8 cm2 TAPSE: 2.3 cm Time Measurements MV dec time: 0.27 sec Doppler Measurements & Calculations MV E max bucky: 80.6 cm/sec Lat Peak E' Bucky: 18.1 cm/sec Med Peak E' Bucky: 11.7 cm/sec MV A max bucky: 98.4 cm/sec E/E' lat: 4.4 E/E' med: 6.9 MV E/A: 0.82 MV V2 max: 105.1 cm/sec MV P1/2t max bucky: 90.8 cm/sec Ao V2 max: 177.7 cm/sec MV max P.4 mmHg MV P1/2t: 90.8 msec Ao max P.6 mmHg MV V2 mean: 57.8 cm/sec Ao V2 mean: 117.0 cm/sec MV mean P.6 mmHg MV dec slope: 293.0 cm/sec2 Ao mean P.5 mmHg MV V2 VTI: 32.1 cm MVA(P1/2t): 2.4 cm2 Ao V2 VTI: 38.7 cm AV (velocity ratio): 0.87 AI max bucky: 421.4 cm/sec LV V1 max: 150.6 cm/sec PA V2 max: 120.4 cm/sec AI max P.1 mmHg LV V1 max P.1 mmHg PA max PG (full): 1.6 mmHg LV V1 mean P.4 mmHg PA V2 mean: 82.3 cm/sec AI dec slope: 228.6 cm/sec2 LV V1 mean: 109.6 cm/sec PA mean PG (full): 0.88 mmHg AI P1/2t: 539.9 msec LV V1 VTI: 33.8 cm ECHO/Echo Complete W/ Contrast Interpretation Summary Mild concentric left ventricular hypertrophy. The left ventricular ejection fraction is 65 %. Bubble contrast study is positive for PFO. Mild (1+) aortic valve insufficiency. Ordering Physician: Betty Aguilar Performed By: Kalpesh Page RCS
[2023-12-19 20:10] LABS: Hemoglobin A1c 5.8 % (3.8-5.6)
[2023-12-19] MEDS: busPIRone 5 MG Tablet PO (20:58)
[2023-12-19] MEDS: Pravastatin 20 MG Tablet 10 MG PO (20:58)
[2023-12-19] MEDS: Enoxaparin 40 MG/0.4 ML Syringe SC (20:59)
[2023-12-19] MEDS: Cephalexin 500 MG Capsule PO (20:59)
[2023-12-19] MEDS: Furosemide 40 MG/4 ML Vial IV (21:04)
[2023-12-20] VITALS (12 sets, daily range): BP systolic 96–125; BP diastolic 57–99; PULSE 62–80; RESP 16–18; TEMP 36.3–37.7; O2SAT 88–96
[2023-12-20 06:57] LABS: Absolute Lymphocyte Count 1.44 X10^3/uL (0.83-4.51); Absolute Neutrophil Count 3.8 X10^3/uL (2.0-7.7); Basophil# 0.04 X10^3/uL; Basophil% 0.7 % (0-1); Eosinophil# 0.14 X10^3/uL; Eosinophils% 2.3 % (0-5); Hematocrit 35.6 % (37-47); Lymphocyte # 1.44 X10^3/ul (0.83-4.51); Lymphocyte % 24.2 % (19-41); Mean Corp Hgb Conc 30.9 g/dL (32-36); Mean Corpuscular Hgb 28.9 pg (27.0-32.0); Mean Corpuscular Volume 93.7 fL (81-99); Mean Platelet Vol. 10.2 fl (6.2-12.0); Monocyte# 0.48 X10^3/uL; Monocyte% 8.1 % (0-10); NRBC Flagged by Analyzer 0 % (0-5); Neutrophil # 3.83 X10^3/uL (2.7-7.7); Neutrophil % 64.2 % (47-70); Platelet Count 214 K/mm3 (150-450); RBC Distribution Width CV 15.9 % (11.6-14.6); RBC Distribution Width SD 54.2 fl (35.1-43.9)
--- NOTE | 2023-12-20 07:23 | PCM.PN.HOSP ---
Reason for Visit Reason for Visit: Diagnoses Calculus of ureter (12/19/23) Urinary tract infection, site not specified (12/19/23) Subjective Subjective Patient is a 73-year-old lady admitted left groin pain. CT of the abdomen and pelvis demonstrated left-sided hydroureteronephrosis secondary to a 3.6 calculus within the distal ureter. Was also found to have abnormal urinalysis consistent with urinary tract infection. Patient was also found to be hypoxic chest x-ray demonstrated vascular congestion admitted to monitored bed for further management Objective Data Objective Data Vital Signs: Vital Signs Temp Pulse Resp BP Pulse Ox O2 Del Method O2 Flow Rate 97.3 F L 64 18 96/57 L 96 Nasal Cannula 2 12/20/23 03:00 12/20/23 03:00 12/20/23 03:00 12/20/23 03:00 12/20/23 03:00 12/20/23 03:00 12/20/23 03:00 Oxygen Flow Rate (L/min) 2 Oxygen Delivery Method Nasal Cannula Weight: 127.8 kg Body Mass Index (BMI) 42.8 Intake & Output: Intake and Output for Last 24 Hours 12/18/23 12/19/23 12/20/23 23:59 23:59 23:59 Intake Total 1000 / 1000 400 / 400 Balance 1000 / 1000 400 / 400 Lab / Micro Data 12/20/23 06:34 12/20/23 06:34 Labs: Laboratory Results - last 24 hr 12/19/23 13:28: WBC 6.2, RBC 4.33, Hgb 12.6, Hct 40.4, MCV 93.3, MCH 29.1, MCHC 31.2 L, RDW Std Deviation 52.8 H, RDW Coeff of Palak 15.2 H, Plt Count 234, MPV 10.3, Immature Gran % (Auto) 0.300, Neut % (Auto) 79.6 H, Lymph % (Auto) 13.5 L, [place] % (Auto) 5.1, Eos % (Auto) 1.0, Baso % (Auto) 0.5, Absolute Neuts (auto) 5.0, Absolute Lymphs (auto) 0.84, Nucleated RBC % 0, Sodium 139, Potassium 3.9, Chloride 101, Carbon Dioxide 32.0, Anion Gap 6, BUN 17, Creatinine 0.96, Est GFR (MDRD) Af Amer 74, Est GFR (MDRD) Non-Af 61, BUN/Creatinine Ratio 17.8, Glucose 105, Calcium 9.4, Total Bilirubin 0.50, AST 21, ALT 35, Alkaline Phosphatase 88, B-Natriuretic Peptide 45.7, Total Protein 7.6, Albumin 3.6, Globulin 4.0, Albumin/Globulin Ratio 0.9, Lipase 20 12/19/23 15:11: Urine Color Yellow, Urine Clarity Cloudy, Urine pH 7.0, Ur Specific [place] 1.005, Urine Protein 100 H, Urine Glucose (UA) Normal, Urine Ketones 15 H, Urine Occult Blood 250 H, Urine Nitrite Positive H, Urine Bilirubin Negative, Urine Urobilinogen 1 H, Ur Leukocyte Esterase 25 H, Urine RBC 50-100 SEEN, Urine WBC 25-50 SEEN, Ur Squamous Epith Cells 0-5 SEEN, Urine Bacteria 1+, Urine Mucus 0 SEEN 12/19/23 16:45: Troponin I High Sens 8 12/19/23 19:38: Hemoglobin A1c 5.8 H 12/20/23 06:34: WBC 6.0, RBC 3.80 L, Hgb 11.0 L, Hct 35.6 L, MCV 93.7, MCH 28.9, MCHC 30.9 L, RDW Std Deviation 54.2 H, RDW Coeff of Palak 15.9 H, Plt Count 214, MPV 10.2, Immature Gran % (Auto) 0.500, Neut % (Auto) 64.2, Lymph % (Auto) 24.2, [place] % (Auto) 8.1, Eos % (Auto) 2.3, Baso % (Auto) 0.7, Absolute Neuts (auto) 3.8, Absolute Lymphs (auto) 1.44, Nucleated RBC % 0 Radiography Diagnostic Testing: Radiology Impression Abdomen/Pelvis CT 12/19/23 13:28 IMPRESSION: Left-sided hydroureteronephrosis secondary to a 3.6 mm calculus within the distal ureter. Fatty infiltration of the liver. Hiatal hernia. Colonic diverticulosis. Electronically Signed: Bettina Oreilly MD at 15:10 EDT , Chest X-Ray 12/19/23 17:25 IMPRESSION: Cardiomegaly with mild central pulmonary venous congestion. Electronically Signed: Petar Farrar MD at 18:07 EDT , Physical Exam Narrative GENERAL: cooperative HEENT: Atraumatic; normocephalic EYES; Anicteric, Normal Conjunctiva NECK; supple, normal thyroid, RESPIRATORY: Diminished to auscultation CARDIOVASCULAR: Regular S1 S2, GI: soft, normoactive bowel sounds, : No Renal angle tenderness; EXTREMITIES: No edema, no clubbing, MUSCULOSKELETAL: no muscle wasting NEURO: Awake; no lateralizing signs. SKIN: No Rash PSYCH; Flat affect Assessment & Plan Assessment/Plan (1) UTI (urinary tract infection): PLAN: Plan Patient is a 73-year-old lady admitted left groin pain. CT of the abdomen and pelvis demonstrated left-sided hydroureteronephrosis secondary to a 3.6 calculus within the distal ureter. Was also found to have abnormal urinalysis consistent with urinary tract infection. Patient was also found to be hypoxic chest x-ray demonstrated vascular congestion admitted to monitored bed for further management 1. Acute hypoxia ? Secondary to congestive heart failure with suspected preserved ejection fraction. Admitted to monitored bed manage strict input and output, daily weight, fluid restriction as well as diuretic therapy as part of his management echo ordered for subsequent eval 2. Renal colic ? CT of the abdomen and pelvis demonstrated left-sided hydroureteronephrosis secondary to a 3.6 calculus within the distal ureter. Patient placed on Flomax for medical expulsion therapy 3. Acute cystitis ? Patient started on oral Keflex; culture sent 4. Hypertension ? Blood pressure controlled, home medications continued with dose adjustment as needed 5. Dyslipidemia ?Patient is on statin therapy, continued at home dose 6. Class III obesity with BMI of 43 ? Complicating care weight loss advised 7. DVT prophylaxis ? On enoxaparin, dose adjusted for BMI Time spent in the patient's overall evaluation,decision-making process, review of diagnostic data, adjustment of management, discussion with other providers, nursing nursing and ancillary staff involved in patient's care documentation, 52 Minutes Advance planning; did discuss with the patient regarding advanced directives as well as CODE STATUS. Did explain the various scenarios involved ( FULL CODE, DNR CCA, DNR CCA with no intubation, and DNR CC and what each meant) patient to remain full code with CPR and intubation if needed. Order was placed. Time spent on discussion 18 minutes. Charges/Coding Multi Select Codes Visit Charges Visit Charges: 60109 [facility] Hospitalists' Procedures Procedures: 12755 Advncd Care Plan 30 Min
[2023-12-20 07:30] LABS: ALB/GLOB Ratio 0.9 RATIO (0.9-2.4); AST(SGOT) 19 U/L (15-37); Alanine Aminotransfer ALT/SGPT 24 U/L (13-56); Alkaline Phosphatase 73 U/L (45-117); Anion Gap 4 (5-15); BUN 20 mg/dL (7-18); BUN/Creat Ratio 19.2 RATIO (10-20); Bilirubin, Direct 0.18 mg/dL (0.00-0.30); Calcium,Total 8.5 mg/dL (8.5-10.1); Chloride 103 mmol/L (98-107); Creatinine, Serum 1.04 mg/dL (0.55-1.02); EST Glomerular Filtration Rate 55 mL/min (>60); Est Glom Filt Rate - Afr Amer 67 mL/min (>60); Estimated Creatinine Clearance 69.05 ml/min; Globulin 3.5 g/dL (2.2-4.2); Glucose 96 mg/dL (74-106); Magnesium 2.2 mg/dL (1.6-2.6); Phosphorus 4.2 mg/dL (2.5-4.9); Potassium 3.3 mmol/L (3.5-5.1); Protein, Total 6.5 g/dL (6.4-8.2); Prothrombin Time (Protime)PT. 13.4 SECONDS (11.7-14.9); Sodium Level 139 mmol/L (136-145)
[2023-12-20] MEDS: Cephalexin 500 MG Capsule PO ×2 (09:13→21:25)
[2023-12-20] MEDS: busPIRone 5 MG Tablet PO ×2 (09:13→21:25)
[2023-12-20] MEDS: Pantoprazole Sodium 20 MG Tablet PO (09:13)
[2023-12-20] MEDS: hydroCHLOROthiazide 12.5mg 12.5 MG PO (09:14)
[2023-12-20] MEDS: Enoxaparin 40 MG/0.4 ML Syringe SC ×2 (09:14→21:25)
[2023-12-20] MEDS: Lisinopril 40 MG Tablet PO (10:29)
[2023-12-20] MEDS: Pravastatin 20 MG Tablet 10 MG PO (21:25)
[2023-12-20] MEDS: Tamsulosin HCl 0.4 MG Capsule PO (21:26)
[2023-12-21 04:18] VITALS: BP 112/75; PULSE 59; RESP 16; TEMP 36.6; O2SAT 93
[2023-12-21 06:23] LABS: Absolute Lymphocyte Count 1.38 X10^3/uL (0.83-4.51); Absolute Neutrophil Count 2.7 X10^3/uL (2.0-7.7); Basophil# 0.04 X10^3/uL; Basophil% 0.8 % (0-1); Eosinophils% 4.2 % (0-5); Hemoglobin 11.1 g/dL (12.0-15.0); Lymphocyte # 1.38 X10^3/ul (0.83-4.51); Lymphocyte % 29.1 % (19-41); Mean Corp Hgb Conc 30.8 g/dL (32-36); Mean Corpuscular Hgb 29.1 pg (27.0-32.0); Mean Corpuscular Volume 94.2 fL (81-99); Mean Platelet Vol. 10.5 fl (6.2-12.0); Monocyte# 0.38 X10^3/uL; NRBC Flagged by Analyzer 0 % (0-5); Neutrophil # 2.74 X10^3/uL (2.7-7.7); Neutrophil % 57.7 % (47-70); Platelet Count 214 K/mm3 (150-450); RBC Distribution Width CV 15.5 % (11.6-14.6); RBC Distribution Width SD 53.4 fl (35.1-43.9); Red Blood Count 3.82 M/mm3 (4.2-5.4); White Blood Count 4.8 K/mm3 (4.4-11.0)
[2023-12-21 06:39] LABS: Anion Gap 6 (5-15); BUN 18 mg/dL (7-18); BUN/Creat Ratio 20.6 RATIO (10-20); Calcium,Total 8.8 mg/dL (8.5-10.1); Chloride 103 mmol/L (98-107); Creatinine, Serum 0.87 mg/dL (0.55-1.02); EST Glomerular Filtration Rate 68 mL/min (>60); Est Glom Filt Rate - Afr Amer 82 mL/min (>60); Estimated Creatinine Clearance 82.55 ml/min; Glucose 109 mg/dL (74-106); Magnesium 2.2 mg/dL (1.6-2.6); Potassium 3.5 mmol/L (3.5-5.1); Sodium Level 140 mmol/L (136-145)
[2023-12-21 08:30] VITALS: BP 118/72; PULSE 60; RESP 14; TEMP 36.6; O2SAT 95
--- NOTE | 2023-12-21 08:58 | CT_ITS ---
STUDY: CT ABDOMEN AND PELVIS WITHOUT CONTRAST REASON FOR EXAM: Female, 73 years old. left ureter stone RADIATION DOSAGE (If Supplied By Facility): CTDIvol = ( 24.18 ) mGy, DLP = ( 1292.70 ) mGycm TECHNIQUE: Transaxial images were obtained from the dome of the diaphragm to the symphysis pubis without oral contrast, and without intravenous contrast. Sagittal and coronal images were reconstructed. Individualized dose optimization techniques were used for this CT. COMPARISON: Comparison is made with prior study dated December 19, 2023. FINDINGS: The visualized lung bases are unremarkable. The visualized portions of the heart are within normal limits. There is decreased attenuation of the liver consistent with steatosis. The patient is status post cholecystectomy. Normal spleen. Normal pancreas. Normal bilateral adrenal glands. Normal right kidney. There is a 3.4 cm by 3.3 cm cyst in the upper medial portion of the left kidney. No significant left hydronephrosis is seen at this time. The previously seen calculus in the distal portion of the left ureter is not seen at this time. There is a moderate-sized hiatal hernia. Normal small intestine. There are multiple colonic diverticula consistent with diverticulosis. The appendix is visualized and appears normal. There is scattered atherosclerotic calcification of the abdominal aorta, without a demonstrated aneurysm. Normal inferior vena cava. Normal retroperitoneum. Normal urinary bladder. Normal abdominal wall. There are degenerative changes of the visualized lumbar spine. CT/Abdomen/Pelvis without Cont IMPRESSION: The previously seen calculus in the distal portion of the left ureter is not seen at this time. No evidence of left hydronephrosis. Fatty infiltration of the liver. Moderate-sized hiatal hernia. Sigmoid diverticulosis. Electronically Signed: Yuan Solomon MD at 9:47 EDT ,
[2023-12-21 10:00] VITALS: O2SAT 95
[2023-12-21] MEDS: Enoxaparin 40 MG/0.4 ML Syringe SC (10:14)
[2023-12-21] MEDS: Pantoprazole Sodium 20 MG Tablet PO (10:14)
[2023-12-21] MEDS: Cephalexin 500 MG Capsule PO (10:15)
[2023-12-21] MEDS: hydroCHLOROthiazide 12.5mg 12.5 MG PO (10:15)
[2023-12-21] MEDS: busPIRone 5 MG Tablet PO (10:16)
[2023-12-21] MEDS: Lisinopril 40 MG Tablet PO (10:17)
--- NOTE | 2023-12-21 10:30 | CASEMGMT ---
PACHECO GUEVARA Assessment: Face to Face with pt for initial transition planning/care coordination assessment. PACHECO GUEVARA introduced self and role at [facility], pt voices understanding and consents to assessment. Pt is A&O x4 and answers all questions appropriately at this time. Pt sitting up in bed in no distress. Care providers, pharmacy, and demographics verified/updated. Strata: 1 Admitting Dx: ABD pain PCP: Ken Specialists: Denies Preferred Pharmacy: [facility] Insurance: [facility], [facility] Prescription Benefit: yes LNOK: , Son Living Arrangements: Pt lives with son in a 1 story home with 2 steps to enter. ADLs: Pt reports I with ADLs and IADLs. Transportation: Pt drives self and denies concerns with transportation. DME: Shower bench HHC/SNF: Denies Hx of. Pt states no concerns with going home at time of dc. Pt states no further concerns/needs. Pt needed O2 yesterday while in the hospital, PACHECO GUEVARA provided verbal list of Home oxygen providers in case pt would need to go home with O2. Pt chose [facility] for O2 needs if needed. CM to follow. Advised pt to ask CM if any further question/concerns/needs arise, voices understanding. Pt Goal: Home Plan: Home, follow for O2 needs. PACHECO GUEVARA to follow plan of care. Portia BERGMAN CM
--- NOTE | 2023-12-21 15:35 | DCINST_ITS ---
Discharge Instructions Diet Discharge Diet: No restrictions Activity Discharge Activity: Return to Normal Activity Weight Bearing Status: Full weight bearing Follow Up Care Test Results: Test results from this visit will be discussed in further detail at your follow- up appointment, if applicable. Discharge Plan Admission Admit Date/Time: 12/20/23 10:49 Primary Reason for Your Visit: left kidney stone-passed Attending Provider: Markel Lomeli Primary Care Provider: Madeline Rogers Consulting Providers: Betty Aguilar; Madi Talamantes Instructions Patient Instructions: Urinary Tract Infections in Women, ED Kidney Stone with Pain Additional Instructions / Restrictions: You have been diagnosed with both a kidney/ureteral stone, and a urinary tract infection. Return to the emergency department with fever, nausea and vomiting, inability to take your medications, increasing pain, new or worsening symptoms. Otherwise, drink plenty of fluids, and follow-up with urology, Dr. Brooks, on Thursday. Discharge Orders/Prescriptions Prescriptions: New cephalexin 500 mg Capsule 500 mg PO TID Qty: 12 0RF Rx Instructions: start on 12/22/23 lisinopril 40 mg Tablet 40 mg PO DAILY Qty: 1 0RF pravastatin 20 mg Tablet 20 mg PO DAILY Qty: 1 0RF hydrochlorothiazide 25 mg tablet 25 mg PO DAILY Qty: 30 0RF Continued buspirone 5 MG tablet 5 mg PO BID omeprazole 20 MG capsule 20 mg PO DAILY fluticasone propionate 50 mcg/actuation spray,suspension 1 spray INTRANASAL QHS Discontinued pravastatin 10 MG tablet 10 mg PO DAILY Patient Comments: lisinopril 2.5 MG tablet 20 mg PO DAILY hydrochlorothiazide 12.5 mg capsule 12.5 mg PO DAILY lisinopril 40 mg tablet 40 mg PO DAILY Referrals / Follow Up: Madeline Rogers MD [Primary Care Provider] - See Referral Note (in 3 weeks) Disposition Disposition (needs filled in before D/C Order can be placed): Home, Self Care
[2023-12-21 15:41] VITALS: O2SAT 96; O2SAT 98
--- NOTE | 2023-12-21 15:43 | CASEMGMT ---
Pt did not qualify for home oxygen. aware.
[2023-12-21 15:50] VITALS: BP 126/78; PULSE 72; RESP 14; TEMP 37; O2SAT 97
--- NOTE | 2023-12-21 15:50 | PCM.DC.SUM ---
Providers Date of Admission: 12/20/23 Date of Discharge: 12/21/23 Primary Care Physician: Dr. Madeline Rogers MD Reason For Visit: ABD PAIN Diagnosis Discharge Diagnosis (1) UTI (urinary tract infection): Status: Acute Code(s): N39.0 - Urinary tract infection, site not specified Plan 1. Left hydroureteronephrosis secondary to ureteral stone-left side #2 hypoxia secondary to hypoventilation due to narcotic administration for pain and morbid obesity #3 acute cystitis #4 morbid obesity #5 hyperlipidemia #6 essential hypertension Congestive heart failure was ruled out Medications at Discharge Home Medications buspirone 5 mg tablet 5 mg PO BID 08/24/17 omeprazole 20 mg capsule,delayed release 20 mg PO DAILY 08/24/17 fluticasone propionate 50 mcg/actuation nasal spray,suspension 1 spray intranasal QHS 12/19/23 cephalexin 500 mg capsule 500 mg PO TID #12 caps 12/21/23 hydrochlorothiazide 25 mg tablet 25 mg PO DAILY #30 tabs 12/21/23 lisinopril 40 mg tablet 40 mg PO DAILY #1 TAB 12/21/23 pravastatin 20 mg tablet 20 mg PO DAILY #1 TAB 12/21/23 Hospital Course Operations None Procedures 2-D Echocardiogram Summary of Care Provided Minutes Spent on Discharge: 31 Hospital Course: This 73-year-old white female was seen in the emergency room at [facility] with complaints of left lower quadrant abdominal pain. She stated she was nausea and had been having dry heaving but no vomiting. Labs showed a normal white blood cell count, chemistry profile was unremarkable, UA was positive for 50-100 RBCs and 25-50 WBCs and +1 bacteria. Abdominal and pelvis CT showed a left sided hydroureteronephrosis secondary to a 3.6 mm calculus within the distal left ureter. Patient was given IV pain medication and nausea medication, following this it was noted that the patient's pulse ox was trending low, chest x-ray was performed which showed vascular congestion but no acute process. Patient was admitted to PCU, she was given IV diuretics and IV fluids, oxygen was weaned off and the patient's abdominal pain resolved. Patient was given IV antibiotics for cystitis. On 12/21/2023, patient was seen and examined: On examination she appeared in good health and spirits, she does not appear to be in any distress. Vital signs as documented. Skin warm and dry and without overt rashes. Neck without JVD, thyroid appears normal, trachea is midline, neck is supple. Lungs clear, normal air movement was noted. Heart exam notable for regular rhythm, normal sounds and absence of murmurs, rubs or gallops. Abdomen unremarkable and without evidence of organomegaly, masses, or abdominal aortic enlargement, bowel sounds are present in all 4 quadrants, no abdominal tenderness was noted. Extremities nonedematous, no cyanosis was noted, no clubbing was noted. Neuro: Cranial nerves II through XII are grossly intact, no focal motor deficits were noted, sensation to light touch and pinprick is intact, motor exam 5/5 throughout. Psych: Patient is alert and oriented x3, she does not appear anxious or depressed, she does not appear agitated. Patient's repeat CT on 12/21/2023 showed no evidence of ureteral calculus or hydronephrosis. Patient's echocardiogram performed showed a normal EF without evidence of significant valvular heart disease. Bubble contrast study was positive for PFO. Patient was discharged home in stable condition on that date. Weight / BMI Weight Weight: 127.8 kg Body Mass Index (BMI) 42.8 ABG / Lab / Microbiology Data 12/21/23 05:36 12/21/23 05:36 Laboratory: Laboratory Results - last 24 hr 12/21/23 05:36: WBC 4.8, RBC 3.82 L, Hgb 11.1 L, Hct 36.0 L, MCV 94.2, MCH 29.1, MCHC 30.8 L, RDW Std Deviation 53.4 H, RDW Coeff of Palak 15.5 H, Plt Count 214, MPV 10.5, Immature Gran % (Auto) 0.200, Neut % (Auto) 57.7, Lymph % (Auto) 29.1, [place] % (Auto) 8.0, Eos % (Auto) 4.2, Baso % (Auto) 0.8, Absolute Neuts (auto) 2.7, Absolute Lymphs (auto) 1.38, Nucleated RBC % 0, Sodium 140, Potassium 3.5, Chloride 103, Carbon Dioxide 31.0, Anion Gap 6, BUN 18, Creatinine 0.87, Estim Creat Clear Calc 82.55, Est GFR (MDRD) Af Amer 82, Est GFR (MDRD) Non-Af 68, BUN/Creatinine Ratio 20.6 H, Glucose 109 H, Calcium 8.8, Phosphorus 3.0, Magnesium 2.2 Microbiology: Microbiology 12/19/23 15:11 Urine, Clean Catch Urine Culture - Final Mixed Gram Positive Organisms Radiography Diagnostic Testing: Radiology Impression Abdomen/Pelvis CT 12/21/23 08:58 IMPRESSION: The previously seen calculus in the distal portion of the left ureter is not seen at this time. No evidence of left hydronephrosis. Fatty infiltration of the liver. Moderate-sized hiatal hernia. Sigmoid diverticulosis. Electronically Signed: Yuan Solomon MD at 9:47 EDT , D/C Instructions Discharge Diet: No restrictions Weight Bearing Status: Full weight bearing Meaningful Use Info Meaningful Use Meaningful Use Diagnoses (Choose all that apply): None applicable Ischemic Stroke Statin Dosing Therapy Reference: STATIN DOSE THERAPY REFERENCE: * Patients > 75 years receive moderate or high dose statin therapy. * Patients 75 years or YOUNGER should receive HIGH intensity statin dose unless contraindicated. You will be required to document reason for non-treatment if statin daily dose does not meet guidelines. HIGH DOSE STATIN THERAPY DAILY Atorvastatin > than or = to 40 mg Rosuvastatin > than or = to 20 mg Amlodipine + Atorvastatin > than or = to 2.5/40 mg Ezetimibe + Simvastatin 10/80 mg Simvastatin 80mg Discharge Plan Admission Admit Date/Time: 12/20/23 10:49 Primary Reason for Your Visit: left kidney stone-passed Attending Provider: Markel Lomeli Primary Care Provider: Madeline Rogers Consulting Providers: Betty Aguilar; Madi Talamantes Instructions Patient Instructions: Urinary Tract Infections in Women, ED Kidney Stone with Pain Additional Instructions / Restrictions: You have been diagnosed with both a kidney/ureteral stone, and a urinary tract infection. Return to the emergency department with fever, nausea and vomiting, inability to take your medications, increasing pain, new or worsening symptoms. Otherwise, drink plenty of fluids, and follow-up with urology, Dr. Brooks, on Thursday. Discharge Orders/Prescriptions Prescriptions: New cephalexin 500 mg Capsule 500 mg PO TID Qty: 12 0RF Rx Instructions: start on 12/22/23 lisinopril 40 mg Tablet 40 mg PO DAILY Qty: 1 0RF pravastatin 20 mg Tablet 20 mg PO DAILY Qty: 1 0RF hydrochlorothiazide 25 mg tablet 25 mg PO DAILY Qty: 30 0RF Continued buspirone 5 MG tablet 5 mg PO BID omeprazole 20 MG capsule 20 mg PO DAILY fluticasone propionate 50 mcg/actuation spray,suspension 1 spray INTRANASAL QHS Discontinued pravastatin 10 MG tablet 10 mg PO DAILY Patient Comments: lisinopril 2.5 MG tablet 20 mg PO DAILY hydrochlorothiazide 12.5 mg capsule 12.5 mg PO DAILY lisinopril 40 mg tablet 40 mg PO DAILY Referrals / Follow Up: Madeline Rogers MD [Primary Care Provider] - See Referral Note (in 3 weeks) Disposition Disposition (needs filled in before D/C Order can be placed): Home, Self Care Charges/Coding Visit Charges Inpatient E&M: 70792 Disch Hosp >30min
== END 2023-12-21 16:20 | disposition home or self-care (01) | DRG 690 ==
LOC: ED 18:53 → PCU 19:18
PROVIDERS: Emergency Medicine; Internal Medicine; Admitting Provider Internal Medicine; Emergency Provider Emergency Medicine; PCP Internal Medicine; Visit Provider Internal Medicine
DX: N13.6 Pyonephrosis (principal); Z68.42 Body mass index [BMI] 45.0-49.9, adult; N30.00 Acute cystitis without hematuria; E66.01 Morbid (severe) obesity due to excess calories; I10 Essential (primary) hypertension; E78.5 Hyperlipidemia, unspecified; Z79.899 Other long term (current) drug therapy
CPT/HCPCS: 36415; 71045; 74176; 74177; 80048; 80053; 81001; 82248; 83036; 83690; 83735; 83880; 84100; 84443; 84484; 85025; 85610; 87086; 93005; 93306; 94668; 99285; J7030; Q9957; Q9967; A4216; C8929; J1940; J2405